=== PATIENT | female | born 1960 | race Caucasian/White ===

== ENCOUNTER 2020-09-28 09:09 | Outpatient (REF) | payer OTHER, MEDICARE, SELFPAY | END 2020-09-28 09:10 | disposition home or self-care (01) | LOC: HO.LAB 09:09 | PROVIDERS: PCP Nurse Practitioner; Visit Provider Internal Medicine | DX: Z20.828 Contact with and (suspected) exposure to other viral communicable diseases (principal) | CPT/HCPCS: C9803; U0003 ==

== ENCOUNTER → 2022-10-02 08:48 | Outpatient (BNVA) | payer OTHER, SELFPAY | PROVIDERS: PCP Nurse Practitioner; Visit Provider Anesthesiology | DX: M51.34 Other intervertebral disc degeneration, thoracic region (principal); M51.36 Other intervertebral disc degeneration, lumbar region; M47.816 Spondylosis without myelopathy or radiculopathy, lumbar region; M46.1 Sacroiliitis, not elsewhere classified; M53.3 Sacrococcygeal disorders, not elsewhere classified; G89.29 Other chronic pain | CPT/HCPCS: 99202 ==

== ENCOUNTER 2022-11-04 06:08 | Outpatient (REF) | payer OTHER, MEDICARE, SELFPAY | END 2022-11-04 06:09 | disposition home or self-care (01) | LOC: CF 06:08 | PROVIDERS: Visit Provider Anesthesiology | DX: Z13.89 Encounter for screening for other disorder (principal) ==

== ENCOUNTER 2022-11-13 19:31 | Outpatient (REF) | payer OTHER, MEDICARE, SELFPAY ==
--- NOTE | ~2022-11-13 | MR_ITS ---
EXAMINATION: MR THORACIC SPINE WITHOUT CONTRAST CLINICAL INFORMATION: 62-year-old with self-reported pain and burning traveling to the left leg with left leg weakness, numbness and pain. Spinal stenosis, thoracic region. COMPARISON: None TECHNIQUE: MRI of the thoracic spine was obtained using routine sequences without contrast. FINDINGS: ALIGNMENT: Very slight upper thoracic levocurvature noted on the fabric cutter view. The thoracic spine is anatomically aligned in the sagittal plane. VERTEBRAL BODIES AND BONE MARROW: Thoracic vertebral body heights are well-maintained. No compression fractures are identified. No suspicious marrow replacing process or bone marrow edema. DISC SPACES AND ENDPLATES: Multilevel discogenic degenerative changes are noted primarily between T4-T5 and L1-L2 inclusive with moderate and mild degrees of intervertebral disc space height loss with multilevel disc desiccation, Schmorl's nodes and spondylosis throughout this region. PARASPINAL SOFT TISSUES: The paravertebral soft tissues are unremarkable. The included, visualized upper abdominal/retroperitoneal soft tissue structures are grossly unremarkable in appearance. The included intrathoracic soft tissues are suggestive of mildly enlarged lymph nodes in the right paratracheal space which cannot be determined with a high degree of certainty. If clinically warranted, CT of the chest with contrast may be of additional value to further assess. SPINAL CORD: Slight cord signal hyperintensity to the left of midline at the T7-T8 level associated with cord impingement suggesting some degree of myelomalacia. Other levels of ventral cord deformity consistent with impingement as detailed below. No obvious cord edema or syrinx. Possible malacia changes at T12-L1. The conus terminates approximately at the L1 level. SPINAL LEVELS: C7-T1: No disc herniation or canal stenosis. Mild facet arthropathy on the right without neural foraminal stenosis. Ligamentum flavum thickening noted. T1-T2: No disc herniation or canal stenosis. No significant DJD or neuroforaminal stenosis. T2-T3: Small left paramedian disc herniation without cord impingement or foraminal encroachment. No significant facet arthrosis or neuroforaminal stenosis. T3-T4: No disc herniation or canal stenosis. Minor facet arthropathy noted bilaterally without significant neural foraminal stenosis. Mild costovertebral arthrosis on the right. T4-T5: Central to right paramedian extruded disc herniation with mild cephalad migration and flattening of the ventral dural sac with mild right-sided ventral cord deformity without canal stenosis. Minor facet arthrosis on the left. No significant neural foraminal stenosis. Mild bilateral costovertebral arthrosis. T5-T6: Central to left paramedian extruded disc herniation with slight cephalad migration without cord impingement or canal stenosis. Busj-vy-zaxrheph facet arthrosis on the left with mild left-sided neural foraminal stenosis without neural impingement. Costovertebral arthrosis noted on the right. T6-T7: Central to left central disc herniation noted with sgej-yh-szxsqlmu left-sided ventral cord impingement and rmhx-le-witvlnqc canal stenosis. No significant facet arthrosis or neuroforaminal stenosis. T7-T8: Central disc herniation noted, with jxvgihqb-cj-jxmraj ventral cord impingement asymmetric to the left with moderate central spinal canal stenosis. No significant facet arthrosis or neuroforaminal stenosis. Probable spondylitic myelomalacia. T8-T9: Central disc protrusion and mild flattening of the central dural sac without cord impingement or significant canal stenosis. No significant facet arthrosis or neuroforaminal stenosis. T9-T10: Right subarticular to foraminal disc protrusion without neural impingement or canal stenosis. No significant DJD. Minimal foraminal narrowing on the right. T10-T11: Central to left paramedian extruded disc herniation noted with the sttf-fj-pdaembiz ventral cord impingement and kkli-qw-qybafrjq spinal canal stenosis. No significant facet arthrosis or neuroforaminal stenosis. T11-T12: Shallow central to right paramedian disc protrusion without neural impingement or canal stenosis. Minor facet arthrosis noted on the left without significant neural foraminal stenosis. T12-L1: Broad-based central to right paramedian extruded disc herniation with cephalad migration with ttbk-ko-wlfflahs ventral cord impingement asymmetric to the left with associated ventral cord deformity and mild canal stenosis. No significant facet arthrosis or neuroforaminal stenosis. MR/MR thoracic spine wo con IMPRESSION: 1. Multilevel thoracic DDD and spondylosis, with multilevel disc herniations throughout the thoracic spine, most apparent at C4-C5, T6-T7, T7-T8 and T10-T11 and T12-L1 with moderate to severe ventral cord impingement asymmetric to the left at T7-T8 and probable spondylitic myelomalacia. Sfav-ki-slezmplc degrees of spinal canal stenosis at multiple levels as detailed above. Probable myelomalacia at T12-L1 associated with the raix-py-qumfkiil ventral cord impingement. 2. Multilevel predominately aesu-kc-orbkvjlk degrees of facet joint and costovertebral arthrosis without significant neural foraminal stenosis. 3. Possible, equivocal mediastinal lymphadenopathy in the right paratracheal space. If clinically warranted, CT of the chest with contrast would be of additional value to further assess. The [facility] staff will call to confirm receipt of this report with acknowledgement of the findings and any recommendations.
== END 2022-11-13 19:32 | disposition home or self-care (01) ==
LOC: HO.MRI 19:31
PROVIDERS: PCP Internal Medicine; Visit Provider Anesthesiology
DX: M48.04 Spinal stenosis, thoracic region (principal); M51.34 Other intervertebral disc degeneration, thoracic region
CPT/HCPCS: 72146

== ENCOUNTER → 2022-12-08 15:26 | Outpatient (BNVA) | payer OTHER, MEDICARE, SELFPAY | PROVIDERS: PCP Internal Medicine; Visit Provider Anesthesiology | DX: Z13.89 Encounter for screening for other disorder (principal) ==

== ENCOUNTER 2023-07-01 11:27 | Outpatient (AMB) | payer OTHER, MEDICARE, SELFPAY ==
--- NOTE | 2023-07-01 11:54 | A.SPINEOV_ITS ---
Intake Intake Visit Reasons: Back pain Intake Note: Mrs. Chu is here today c/o low back pain. MRI done @ [facility] [place]. Casing Blower Required: No Allergies nut - unspecified [nut] Allergy (Severe, Verified 12/08/22 15:38) ANAPHYLAXIS cephradine [From VELOSEF] Allergy (Unknown, Verified 12/08/22 15:38) HIVES egg [EGGS] Adverse Reaction (Unknown, Verified 12/08/22 15:38) NAUSEA & VOMITING prochlorperazine [From COMPAZINE] Adverse Reaction (Unknown, Verified 12/08/22 15:38) CONVULSIONS Assessment & Plan Assessment & Plan (1) Chronic left sacroiliac joint pain: Code(s): M53.3 - Sacrococcygeal disorders, not elsewhere classified; G89.29 - Other chronic pain Plan Dear colleague Thank you for referring Elizabeth Chu to the office today with a chief complaint of left-sided low back pain. HPI: This 62-year-old female is having a 4 year history of left-sided pain in the SI joint area that radiates to her upper lumbar spine and down to her posterior thigh. The pain increases when she gets in and out of car. She has to lay on the non symptomatic side to avoid pain. She was seen by for possible diagnosis of left SI joint pathology. Second complaint is intermittent numbness of her feet and a 3rd complaint is numbness of her right arm when she lays on it. No radiating pain down her arm. No weakness. No bowel or bladder complaints. The following conservative treatment options were tried without success antiinflammatories, tylenol, physical therapy, cortisone shots PMH: COPD, GERD, hypercholesterolemia, thyroid disease Social history: Smokes 1 pack a day Medications: Amitriptyline, baclofen, levothyroxine, pantoprazole, sertraline, simvastatin, Trelegy, albuterol, Tylenol p.m., vitamin-D and gabapentin Allergies: Compazine and Velocef Physical Exam: Pleasant female in obvious agony. She walks with a limp of her left leg. Putting weight on her left leg produces pain. SI joint provocative test are positive. Straight leg raise produces pain in the left SI joint area. Remainder of neurological exam is intact for motor sensation and reflexes. No pathological reflexes Radiological Studies: MRI of the lumbar spine done shows no spinal pathology explaining her symptoms. Impression/Plan: In summary, this patient is suffering from a left SI joint pathology. I advised to return to Dr. Bee for further evaluation and treatment. Thank you for allowing me to participate in your patients care. total time spent was 50 minutes in counseling ,coordination of plan, personal review of imaging, surgical decision making and subsequent plan Horace Babcock MD, PhD Spine Fellowship Trained Neurosurgeon Director, [facility] Coding Level of Care Code New Pt Level 4 (86750) Diagnoses Chronic left sacroiliac joint pain M53.3; G89.29
== END 2023-07-01 12:20 | disposition home or self-care (01) ==
PROVIDERS: PCP Internal Medicine; Referring Provider Physician Assistant Medical; Visit Provider Neurological Surgery
DX: M53.3 Sacrococcygeal disorders, not elsewhere classified (principal); G89.29 Other chronic pain
CPT/HCPCS: 99204

== ENCOUNTER → 2023-07-01 11:27 | Outpatient (BNVA) | payer OTHER, MEDICARE, SELFPAY | PROVIDERS: PCP Internal Medicine; Referring Provider Physician Assistant Medical; Visit Provider Neurological Surgery | DX: M53.3 Sacrococcygeal disorders, not elsewhere classified (principal); G89.29 Other chronic pain | CPT/HCPCS: 99202 ==

== ENCOUNTER 2023-07-29 10:48 | Outpatient (AMB) | payer OTHER, MEDICARE, SELFPAY ==
[2023-07-29 11:25] VITALS: BP 108/74; PULSE 107; RESP 16; O2SAT 94; BMI 35.9
--- NOTE | 2023-07-29 11:25 | A.OFFVIS_ITS ---
Intake Vital Signs 07/29/23 11:25 Height 5 ft Weight 184 lb BMI 35.9 BP 108/74 Blood Pressure Location Lt brachial Position Sitting Respiration 16 Pulse 107 H Pulse Source Pulse Oximeter Pulse Oximetry (%) 94 Oxygen Delivery Method Room Air Intake Visit Reasons: FOLLOW UP FOR BACK PAIN Intake Note: patient comes in for follow up. Allergies nut - unspecified [nut] Allergy (Severe, Verified 07/29/23 11:25) ANAPHYLAXIS cephradine [From VELOSEF] Allergy (Unknown, Verified 07/29/23 11:25) HIVES egg [EGGS] Adverse Reaction (Unknown, Verified 07/29/23 11:25) NAUSEA & VOMITING prochlorperazine [From COMPAZINE] Adverse Reaction (Unknown, Verified 07/29/23 11:25) CONVULSIONS HPI HPI Comments History of Present Illness Details Elizabeth is in my office for the follow-up and further management discussion. I explained to her that since she adamantly refused to go for a surgery the only way to treat her pain I can see as spinal cord stimulator and intrathecal drug delivery system pain pump. I am not sure which spinal cord stimulator in her case will be more efficient so I offered her to have a trial with planned switch during the trial for the other machine. I will place [place] [employer] spinal cord stimulator in and then if she is not satisfied with the Scientific stimulation I will switch it to Nevro. If she likes neither pain p ump can be tried today. She decided to sleep on it and read the brochures about [place] [employer] SCS Nevro SCS and [employer] I DDD. She will give us a call about her decision. At her initial visit I also considered sacroiliac joint injection on the left to help her pain however this procedure never happened. Next time she is here we need to discuss the reason why she did not come to the sacroiliac joint injection procedure. Prior: on the phone today discussing the results of the MRI. The dictation of the MRI is as below. 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 We discussed the situation at hands. Obviously this is not a new findings. She had in the past. However to help her condition with the neuromodulation I need to have neurosurgical consult which would deny any surgery on her thoracic spine. After that we can offer her Nevro spinal cord stimulator versus intrathecal drug delivery system pain pump trial. I do not think the weakness of bilateral lower extremities she experiences every day will get better from those to procedures however obviously the pain will be much better as a palliative care. Prior: complain on pain in lower back with radiation into the left lower extremity.? She reports that this pain started in 2019 after a walk her hip gave out and she was barely able to complete that walk.? the pain is productive with frequent exacerbations.?? She was subject of MRI which demonstrated significant spinal stenosis with spinal cord compression at T10-T11 area.? Apparently she went for neurosurgical consult in [place] and she was not recommended to have any surgery however she was not got established with continuous follow-up with any neurosurgeon neither in [place] nor locally, I believe she needs to be under observation.? she had multiple sessions of physical therapy chiropractic manipulations massage therapy and 10s unit she reports that the those were not helpful.? She reports that she had some sort of injection performed for her lumbar spine which was working for 1 year alleviating her pain.? I suspect that was steroid injection [facility] Medical History (Updated 11/25/22 @ 12:04 by MIR Beck) COPD (chronic obstructive pulmonary disease) Tobacco use disorder Depression Obesity Obstructive sleep apnea Pulmonary nodules Vitamin D deficiency DDD (degenerative disc disease) Thoracic spondylosis Review of Systems Const All systems reviewed & are unremarkable except as noted in HPI and below ENT Reports Normal hearing present Neuro Reports Normal hearing present, Denies Abnormal speech present and Denies Sensory deficit (Neuro) Physical Exam Vital Signs: Last Vital Signs Pulse 107 H 07/29/23 11:25 Resp 16 07/29/23 11:25 BP 108/74 07/29/23 11:25 Pulse Ox 94 07/29/23 11:25 Oxygen Delivery Method Room Air 07/29/23 11:25 BMI result Body Mass Index 35.9 Const General: healthy appearing and acute distress mild Nutritional Appearance: obese other Orientation/consciousness: patient oriented x3 Eyes General: appearance normal, both eyes and all related structures Pupils: Equal, round and reactive pupils present EOM: EOMs intact bilaterally Neck Neck: Yes full ROM Chest Chest palpation & inspection: normal inspection of the chest Resp Effort & Inspection: normal respiratory effort, able to speak in complete sentences, normal respiratory pattern, no audible wheezes and no cough Cardio Jugular venous distension: no JVD GI Inspection: Yes normal to inspection Back/Spine/Pelvis Other: She is able to stand on bilateral tiptoes and on bilateral heels demonstrating normal strength of bilateral lower extremities. Bilateral SLR is negative for pain increase. Bilateral lassegue test is negative for pain increase. Left- sided Mak test is positive for pain increase. Right-sided Mak test is s lightly positive for pain increase as well. Pelvic compression test then the pelvic destruction test result in pain increase in the left. Stinchfield test results in pain in the right sacroiliac joint. Neuro General: patient oriented x3 Cranial nerves: Yes CN's II-XII intact bilaterally, Yes Equal, round and cruz ctive pupils present, Yes Normal hearing present and Yes Ability to bilaterally elevate shoulders present Speech: No Abnormal speech present Gait exam (Neuro): Normal gait present Motor exam (neuro): 5/5 motor strength present throughout Sensory Exam: No Sensory deficit (Neuro) Extrem General: No pedal edema Psych Speech and movement: Normal speech and movement present Affect: normal affect Attitude: cooperative Thought process: Normal thought process present Thought content: Normal thought content present Insight: Good insight present (Psych) Judgement: Good judgement present (Psych) Assessment & Plan Assessment & Plan (1) Degeneration, intervertebral disc, thoracic: Code(s): M51.34 - Other intervertebral disc degeneration, thoracic region (2) Disc degeneration, lumbar: Code(s): M51.36 - Other intervertebral disc degeneration, lumbar region (3) Spondylosis without myelopathy or radiculopathy, lumbar region: Code(s): M47.816 - Spondylosis without myelopathy or radiculopathy, lumbar region (4) Sacroiliitis: Code(s): M46.1 - Sacroiliitis, not elsewhere classified (5) Chronic left sacroiliac joint pain: Code(s): M53.3 - Sacrococcygeal disorders, not elsewhere classified; G89.29 - Other chronic pain (6) Chronic pain syndrome: Code(s): G89.4 - Chronic pain syndrome Plan Left sacrococcygeal disorder/sacroiliitis could be offered to the patient. Alternatively neuromodulation was offered today to the patient. Brochures of [employer] SCS, neuro SCS, [employer] I DDD were given to the patient. Patient will leads read the brochures and will give us a call with her decision about it. She never went for left sacroiliac joint injection as it was planned during her initial visit. I personally believe that we ought to perform it to take all other possibilities of pain generator of of the table before we advanced some cells to neuromodulation. Coding Level of Care Code Est Pt Level 4 (92818) Diagnoses Degeneration, intervertebral disc, thoracic M51.34 Disc degeneration, lumbar M51.36 Spondylosis without myelopathy or radiculopathy, lumbar region M47.816 Sacroiliitis M46.1 Chronic left sacroiliac joint pain M53.3; G89.29 Chronic pain syndrome G89.4
== END 2023-07-29 11:51 | disposition home or self-care (01) ==
PROVIDERS: PCP Internal Medicine; Visit Provider Anesthesiology
DX: M51.34 Other intervertebral disc degeneration, thoracic region (principal); M51.36 Other intervertebral disc degeneration, lumbar region; M47.816 Spondylosis without myelopathy or radiculopathy, lumbar region; M46.1 Sacroiliitis, not elsewhere classified; M53.3 Sacrococcygeal disorders, not elsewhere classified; G89.29 Other chronic pain; G89.4 Chronic pain syndrome
CPT/HCPCS: 99214

== ENCOUNTER → 2023-07-29 10:48 | Outpatient (BNVA) | payer OTHER, MEDICARE, SELFPAY | PROVIDERS: PCP Internal Medicine; Visit Provider Anesthesiology | DX: M51.34 Other intervertebral disc degeneration, thoracic region (principal); M51.36 Other intervertebral disc degeneration, lumbar region; M47.816 Spondylosis without myelopathy or radiculopathy, lumbar region; M46.1 Sacroiliitis, not elsewhere classified; M53.3 Sacrococcygeal disorders, not elsewhere classified; G89.29 Other chronic pain | CPT/HCPCS: 99212 ==

== ENCOUNTER 2024-07-21 15:18 | Outpatient (AMB) | payer OTHER, MEDICARE, SELFPAY ==
--- NOTE | 2024-07-21 15:25 | A.OFFVIS_ITS ---
Vital Signs 3 07/21/24 15:31 Height 5 ft Weight 185 lb 8 oz BMI 36.2 BP 138/74 Blood Pressure Location Lt brachial Position Sitting Respiration 16 Pulse 100 Pulse Source Pulse Oximeter Pulse Oximetry (%) 93 Oxygen Delivery Method Room Air Intake Visit Reasons: Back Pain/Discuss [employer]/Nevro SCS Allergies nut - unspecified [nut] Allergy (Severe, Verified 07/21/24 15:32) ANAPHYLAXIS cephradine [From VELOSEF] Allergy (Unknown, Verified 07/21/24 15:32) HIVES egg [EGGS] Adverse Reaction (Unknown, Verified 07/21/24 15:32) NAUSEA & VOMITING prochlorperazine [From COMPAZINE] Adverse Reaction (Unknown, Verified 07/21/24 15:32) CONVULSIONS HPI Comments Details: Patient presents today for follow up for chronic low back pain with left sided radicular symptoms and discussion of Nevro Lumbar SCS trial. Patient was last seen in our office one year ago by Dr. Bee. Denies any recent trauma, injury or falls. Patient reports low back pain with radiation of pain into left buttock and left lower extremity but not below knee level with associated numbness and tingling. She also has significant left SIJ pain with positive provocative testing and interested to undergo therapeutic injection as initial steps. Patient denies any fever or chills, abdominal groin pain, weakness, foot drop, bladder bowel dysfunction or saddle anesthesia. PRIOR Dr. Bee 07/29/23: Elizabeth is in my office for the follow-up and further management discussion. I explained to her that since she adamantly refused to go for a surgery the only way to treat her pain I can see as spinal cord stimulator and intrathecal drug delivery system pain pump. I am not sure which spinal cord stimulator in her case will be more efficient so I offered her to have a trial with planned switch during the trial for the other machine. I will place [employer] spinal cord stimulator in and then if she is not satisfied with the Scientific stimulation I will switch it to Nevro. If she likes neither pain pump can be tried today. She decided to sleep on it and read the brochures about [employer] SCS Nevro SCS and [employer] I DDD. She will give us a call about her decision. At her initial visit I also considered sacroiliac joint injection on the left to help her pain however this procedure never happened. Next time she is here we need to discuss the reason why she did not come to the sacroiliac joint injection procedure. Prior: on the phone today discussing the results of the MRI. The dictation of the MRI is as below. 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 We discussed the situation at hands. Obviously this is not a new findings. She had in the past. However to help her condition with the neuromodulation I need to have neurosurgical consult which would deny any surgery on her thoracic spine. After that we can offer her Nevro spinal cord stimulator versus intrathecal drug delivery system pain pump trial. I do not think the weakness of bilateral lower extremities she experiences every day will get better from those to procedures however obviously the pain will be much better as a palliative care. Prior: complain on pain in lower back with radiation into the left lower extremity.? She reports that this pain started in 2019 after a walk her hip gave out and she was barely able to complete that walk.? the pain is productive with frequent exacerbations.?? She was subject of MRI which demonstrated significant spinal stenosis with spinal cord compression at T10-T11 area.? Apparently she went for neurosurgical consult in [place] and she was not recommended to have any surgery however she was not got established with continuous follow-up with any neurosurgeon neither in [place] nor locally, I believe she needs to be under observation.? she had multiple sessions of physical therapy chiropractic manipulations massage therapy and 10s unit she reports that the those were not helpful.? She reports that she had some sort of injection performed for her lumbar spine which was working for 1 year alleviating her pain.? I suspect that was steroid injection COUNT INCLUDES THE [facility] Medical History (Updated 11/25/22 @ 12:04 by MIR Beck) COPD (chronic obstructive pulmonary disease) Tobacco use disorder Depression Obesity Obstructive sleep apnea Pulmonary nodules Vitamin D deficiency DDD (degenerative disc disease) Thoracic spondylosis Review of Systems Const All systems reviewed & are unremarkable except as noted in HPI and below Physical Exam Vital Signs: Last Vital Signs Pulse 100 07/21/24 15:31 Resp 16 07/21/24 15:31 BP 138/74 07/21/24 15:31 Pulse Ox 93 07/21/24 15:31 Oxygen Delivery Method Room Air 07/21/24 15:31 BMI result Body Mass Index 36.2 General: Appears afebrile. No acute distress. Alert and oriented. Mood and affect appropriate. Follows and participates in conversation appropriately. Respiratory effort is unlabored. No cough. Able to transition from sit to stand unassisted. Ambulates with bilaterally normal heel strike and toe off. General: Yes no CVA tenderness Back/Spine/Pelvis Other: No midline tenderness to palpation in the thoracic or lumbar region. Minimal paraspinal tenderness to palpation in the lumbar spine on the left Lumbar extension and flexion reproduces mild to moderate pain. No groin pain with I/E hip rotations bilaterally. Back: no CVA tenderness Cervical Spine: cervical ROM normal, cervical muscular tenderness and No Cervical spine tenderness Thoracic/Lumbar Spine: thoracic and lumbar spine normal to inspection, Lasegue's sign negative, straight leg raise negative bilaterally, pain with thoraco-lumbar ROM, paraspinal muscle tenderness, thoraco-lumbar ROM limited, No thoracic spinal tenderness and lumbar spinal tenderness (L4-S1) Pelvis: buttock tenderness on the left Sacroiliac joints: on the right nontender and on the left (SI distraction, Mak's, Gaenslen and Stinchfield tests) tender to palpation Results Reviewed Results Reviewed: MR THORACIC SPINE WITHOUT CONTRAST 11/13/22 CLINICAL INFORMATION: 62-year-old with self-reported pain and burning traveling to the left leg with left leg weakness, numbness and pain. Spinal stenosis, thoracic region. FINDINGS: ALIGNMENT: Very slight upper thoracic levocurvature noted on the fast food shift lead view. The thoracic spine is anatomically aligned in the sagittal plane. VERTEBRAL BODIES AND BONE MARROW: Thoracic vertebral body heights are well-maintained. No compression fractures are identified. No suspicious marrow replacing process or bone marrow edema. DISC SPACES AND ENDPLATES: Multilevel discogenic degenerative changes are noted primarily between T4-T5 and L1-L2 inclusive with moderate and mild degrees of intervertebral disc space height loss with multilevel disc desiccation, Schmorl's nodes and spondylosis throughout this region. PARASPINAL SOFT TISSUES: The paravertebral soft tissues are unremarkable. The included, visualized upper abdominal/retroperitoneal soft tissue structures are grossly unremarkable in appearance. The included intrathoracic soft tissues are suggestive of mildly enlarged lymph nodes in the right paratracheal space which cannot be determined with a high degree of certainty. If clinically warranted, CT of the chest with contrast may be of additional value to further assess. SPINAL CORD: Slight cord signal hyperintensity to the left of midline at the T7-T8 level associated with cord impingement suggesting some degree of myelomalacia. Other levels of ventral cord deformity consistent with impingement as detailed below. No obvious cord edema or syrinx. Possible malacia changes at T12-L1. The conus terminates approximately at the L1 level. SPINAL LEVELS: C7-T1: No disc herniation or canal stenosis. Mild facet arthropathy on the right without neural foraminal stenosis. Ligamentum flavum thickening noted. T1-T2: No disc herniation or canal stenosis. No significant DJD or neuroforaminal stenosis. T2-T3: Small left paramedian disc herniation without cord impingement or foraminal encroachment. No significant facet arthrosis or neuroforaminal stenosis. T3-T4: No disc herniation or canal stenosis. Minor facet arthropathy noted bilaterally without significant neural foraminal stenosis. Mild costovertebral arthrosis on the right. T4-T5: Central to right paramedian extruded disc herniation with mild cephalad migration and flattening of the ventral dural sac with mild right-sided ventral cord deformity without canal stenosis. Minor facet arthrosis on the left. No significant neural foraminal stenosis. Mild bilateral costovertebral arthrosis. T5-T6: Central to left paramedian extruded disc herniation with slight cephalad migration without cord impingement or canal stenosis. Zjwf-de-nsxetxwn facet arthrosis on the left with mild left-sided neural foraminal stenosis without neural impingement. Costovertebral arthrosis noted on the right. T6-T7: Central to left central disc herniation noted with rppv-hu-cnsxhwhr left-sided ventral cord impingement and wywq-xz-qutpxnaz canal stenosis. No significant facet arthrosis or neuroforaminal stenosis. T7-T8: Central disc herniation noted, with fjnkzqef-xc-hrgarr ventral cord impingement asymmetric to the left with moderate central spinal canal stenosis. No significant facet arthrosis or neuroforaminal stenosis. Probable spondylitic myelomalacia. T8-T9: Central disc protrusion and mild flattening of the central dural sac without cord impingement or significant canal stenosis. No significant facet arthrosis or neuroforaminal stenosis. T9-T10: Right subarticular to foraminal disc protrusion without neural impingement or canal stenosis. No significant DJD. Minimal foraminal narrowing on the right. T10-T11: Central to left paramedian extruded disc herniation noted with the gwat-vm-dvqsdqss ventral cord impingement and zose-ed-bkzsiydc spinal canal stenosis. No significant facet arthrosis or neuroforaminal stenosis. T11-T12: Shallow central to right paramedian disc protrusion without neural impingement or canal stenosis. Minor facet arthrosis noted on the left without significant neural foraminal stenosis. T12-L1: Broad-based central to right paramedian extruded disc herniation with cephalad migration with odrj-kq-auxxsyfh ventral cord impingement asymmetric to the left with associated ventral cord deformity and mild canal stenosis. No significant facet arthrosis or neuroforaminal stenosis. IMPRESSION: 1.? Multilevel thoracic DDD and spondylosis, with multilevel disc herniations throughout the thoracic spine, most apparent at C4-C5, T6-T7, T7-T8 and T10-T11 and T12-L1 with moderate to severe ventral cord impingement asymmetric to the left at T7-T8 and probable spondylitic myelomalacia. Mcze-ab-lscalete degrees of spinal canal stenosis at multiple levels as detailed above. Probable myelomalacia at T12-L1 associated with the hkbd-nk-ylgnsbvc ventral cord impingement. ? 2.? Multilevel predominately jpha-jm-ldvpbxzt degrees of facet joint and costovertebral arthrosis without significant neural foraminal stenosis. ? 3.? Possible, equivocal mediastinal lymphadenopathy in the right paratracheal space. If clinically warranted, CT of the chest with contrast would be of additional value to further assess. ? The PSA staff will call to confirm receipt of this report with acknowledgement of the findings and any recommendations. Assessment & Plan Assessment & Plan (1) Degeneration, intervertebral disc, thoracic: Code(s): M51.34 - Other intervertebral disc degeneration, thoracic region Category: Medical (2) Disc degeneration, lumbar: Code(s): M51.36 - Other intervertebral disc degeneration, lumbar region Category: Medical (3) Spondylosis without myelopathy or radiculopathy, lumbar region: Code(s): M47.816 - Spondylosis without myelopathy or radiculopathy, lumbar region Category: Medical (4) Sacroiliitis: Code(s): M46.1 - Sacroiliitis, not elsewhere classified Category: Medical (5) Chronic left sacroiliac joint pain: Code(s): M53.3 - Sacrococcygeal disorders, not elsewhere classified; G89.29 - Other chronic pain Category: Medical (6) Chronic pain syndrome: Code(s): G89.4 - Chronic pain syndrome Category: Medical Plan Schedule left therapeutic SI joint injection with local and fluoroscopy. We also discussed diagnostic injection for potential temporary vs permanent PNS trial, and RFA procedures. Expectations, risks and benefits were reviewed. Patient is aware she will be contacted to schedule this procedure. We reviewed neuromodulation with patient today including Nevro lumbar spinal cord stimulation trial versus implant and [employer] ITDD pain pump trial vs implant. If patient obtains partial pain relief with SI joint injection we will proceed with behavioral evaluation for neuro modulation treatments. All questions and concerns have been answered and patient agreed with the treatment plan. Follow-up after injections and sooner as needed. Coding Level of Care Code Est Pt Level 4 (29243) Complex EM visit Add On G2211 Diagnoses Degeneration, intervertebral disc, thoracic M51.34 Disc degeneration, lumbar M51.36 Spondylosis without myelopathy or radiculopathy, lumbar region M47.816 Sacroiliitis M46.1 Chronic left sacroiliac joint pain M53.3; G89.29 Chronic pain syndrome G89.4
[2024-07-21 15:31] VITALS: BP 138/74; PULSE 100; RESP 16; O2SAT 93; BMI 36.2
== END 2024-07-21 15:56 | disposition home or self-care (01) ==
PROVIDERS: PCP Internal Medicine; Visit Provider Nurse Practitioner Family
DX: M51.34 Other intervertebral disc degeneration, thoracic region (principal); M51.36 Other intervertebral disc degeneration, lumbar region; M47.816 Spondylosis without myelopathy or radiculopathy, lumbar region; M46.1 Sacroiliitis, not elsewhere classified; M53.3 Sacrococcygeal disorders, not elsewhere classified; G89.29 Other chronic pain; G89.4 Chronic pain syndrome
CPT/HCPCS: 99214

== ENCOUNTER → 2024-07-21 15:18 | Outpatient (BNVA) | payer OTHER, MEDICARE, SELFPAY | PROVIDERS: PCP Internal Medicine; Visit Provider Nurse Practitioner Family | DX: M51.34 Other intervertebral disc degeneration, thoracic region (principal); M51.36 Other intervertebral disc degeneration, lumbar region; M47.816 Spondylosis without myelopathy or radiculopathy, lumbar region; M46.1 Sacroiliitis, not elsewhere classified; M53.3 Sacrococcygeal disorders, not elsewhere classified; G89.4 Chronic pain syndrome | CPT/HCPCS: 99212 ==

== ENCOUNTER 2025-04-07 10:20 | Outpatient (AMB) | payer OTHER, SELFPAY ==
--- OUTSIDE RECORDS SUMMARY | 2025-04-07 10:31 | XMS_ITS | Encounter Summary ---
Author Organization [facility] Address [address] [place] [address] Care Team Providers Care County Adviser Name Role Phone Keyona Mills MD Primary Care Provider [phone] Reason for Visit * Reason Onset Date Comments COPD 10/25/2024 Encounter Details Date Type Department Care Team (Late st Contact Info) Description 10/25/2024 Nurse Triage Adult Medicine [address] [address] Keyona Mills MD [address] [place] [address] COPD Social History Tobacco Use Types Packs/Day Years Used Date Smoking Tobacco: Every Day Cigarettes Smokeless Tobacco: Never Alcohol Use Standard Drinks/Week Comments Yes 0 (1 standard drink = 0.6 oz pur e alcohol) Comments Unknown Sex and Gender Information Value Date Recorded Sex Assigned at Not on file Legal Sex Female 12:38 AM EST Gender Identity Not on file Sexual Orientation Not on file Travel History Travel Start Travel End [place] 02/14/2025 03/24/2025 documented as of this encounter Progress Notes * Mell Foley RN - 10/25/2024 9:21 AM EST Reason for Disposition [1] MILD difficulty breathing (e.g., minimal/no SOB at rest, SOB with walking, pulse <100) AND [2] still present when not coughing Answer Assessment - Initial Assessment Questions 1. ONSET: When did the cough begin? Over a month , was seen last month , no improvement 2. SEVERITY: How bad is the cough today? Persistent 3. SPUTUM: Describe the color of your sputum (e.g., none, dry cough; clear, white, yellow, green) Unable to raise sputum 4. HEMOPTYSIS: Are you coughing up any blood? If Yes, ask: How much? (e.g., flecks, streaks, tablespoons, etc.) none 5. DIFFICULTY BREATHING: Are you having difficulty breathing? If Yes, ask: How bad is it? (e.g., mild, moderate, severe) - MILD: No SOB at rest, mild SOB with walking, speaks normally in sentences, can lie down, no retractions, pulse < 100. - MODERATE: SOB at rest, SOB with minimal exertion and prefers to sit, cannot lie down flat, speaksin phrases, mild retractions, audible wheezing, pulse 100-120. - SEVERE: Very SOB at rest, speaks in single words, struggling to breathe, sitting hunched forward,retractions, pulse > 120. Moderate 6. FEVER: Do you have a fever? If Yes, ask: What is your temperature, how was it measured, and when did it start? No 7. CARDIAC HISTORY: Do you have any history of heart disease? (e.g., heart attack, congestive heart failure) No 8. LUNG HISTORY: Do you have any history of lung disease? (e.g., pulmonary embolus, asthma, emphysema) copd 9. PE RISK FACTORS: Do you have a history of blood clots? (or: recent major surgery, recent prolonged travel, bedridden) no 10. OTHER SYMPTOMS: Do you have any other symptoms? (e.g., runny nose, wheezing, chest pain) C/O chest wall tightness with deep breath and cough, feels SOB with minimal activity able to speak in full sentences and has no audible wheezing, using all prescribed and OTC meds as directed with limited relief, cough is non productive for Sputum, denies fever (has not taken temp) able to take PO with no difficulty, denies N/V/D, 11. : Is there any chance you are ? When was your last menstrual period? No 12. TRAVEL: Have you traveled out of the country in the last month? (e.g., travel history, exposures) No Protocols used: Cough - Acute [id number]-M-VR * Bill Marshall - 10/25/2024 9:04 AM EST Patient call requires triage: Symptoms patient is presenting: Persistent cough, COPD, asking to come in for today How long has patient had these symptoms?: few days For ALL patients calling to schedule any appointment (routine, sick visit, follow up, consult, etc.) in the outpatient setting please ask the following questions: Do you have fever of higher than 101, sore throat with difficulty swallowing or severe shortness ofbreath? no If YES to any of these above symptoms, send a message to triage and do not book. Red dot. If no, an audio or video visit should be booked. Have you had close contact with someone with Coronavirus in the last 14 days? no Have you traveled abroad? no Have you traveled recently to another state outside of [place], [place], [place], [place], [place], [place], [place]? no o If yes, did you quarantine for 14 days or have a negative covid test? no If yes to any of the above, patient is not to be scheduled in office until after 14 day quarantine or negative covid test. If pain or injury related was it due to an accident at work or from a motor vehicle accident? If yes, date of accident/Injury: No If yes, gather 3rd constitution party insurance information Third Green Party Information: not applicable PCP: Keyona Mills MD Payor: [employer] / Plan: [employer] / Product Type: *No Product type* / documented in this encounter Plan of Treatment Upcoming Encounters Date Type Department Care Team (Late st Contact Info) Description 05/02/2025 11:00 AM EDT Ancillary Procedure Pulmonolgy - [place] [address] [facility] [address] [facility] [address] [place] [address] 05/02/2025 11:45 AM EDT Office Visit Pulmonolgy - [place] [address] [place] [phone] Payal Yoon MD [address] [facility] [address] [place] [address] documented as of this encounter Visit Diagnoses Not on filedocumented in this encounter Care Teams County Adviser Relationship Specialty Start Date End Date Keyona Mills MD [address] [place] [address] PCP - General Internal Medicine 08/10/20 documented as of this encounter
[2025-04-07 10:32] VITALS: BP 126/60; PULSE 104; O2SAT 96; BMI 36.7
--- NOTE | 2025-04-07 10:32 | MHC.OFFVIS ---
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 Required: No Allergies nut - unspecified [nut] Allergy (Severe, Verified 04/07/25 10:33) ANAPHYLAXIS cephradine [From VELOSEF] Allergy (Unknown, Verified 04/07/25 10:33) HIVES egg [EGGS] Adverse Reaction (Unknown, Verified 04/07/25 10:33) NAUSEA & VOMITING prochlorperazine [From COMPAZINE] Adverse Reaction (Unknown, Verified 04/07/25 10:33) CONVULSIONS Medication List - Last Reconciled 04/07/25 by MIR Beck amitriptyline 75 mg PO BEDTIME baclofen 10 mg PO TID gabapentin 300 mg PO TID ibuprofen 800 mg PO Q8H PRN levothyroxine mcg PO pantoprazole 40 mg PO DAILY sertraline 100 mg PO BID simvastatin 40 mg PO BEDTIME umeclidinium-vilanterol 62.5-25 mcg/actuation (Anoro Ellipta) 1 ea inhalation DAILY HPI Comments Details: The patient is a 64-year-old female presenting with right and left sacroiliac joint pain. She began experiencing a right-sided pain three months ago without any triggering event, shifting from her chronic left sacroiliac joint pain. Described as more acute on the right side, the pain has limited her sitting capacity and interfered with her sleep. The patient has an extensive history of back issues, including arthritis and spinal stenosis identifiable in past MRIs and experiencing persistent thoracic and lumbar discomfort. Notably, the patient's medical record includes vertiginous symptoms linked to the left ear, creating intense dizziness, especially while laying down. She avoids sitting on her right side due to discomfort. Reports potentially smoking-associated risk factor, consuming a daily pack of cigarettes. The patient supports her pain management with ice and Ibuprofen, along with prescribed gabapentin and baclofen for her back condition. - Onset & Timing: Chronic, flared up 3 months ago, with a shift from left to right sacroiliac joint pain after long driving from vacation. - Quality & Character: Pain in the right hip and buttocks, more severe on the right side but also on the left. - Primary Location: Right >Left SI joint area with positive provocative testing. - Radiation: Bilateral buttocks and lateral hips, occasionally to right groin. - Exacerbating Factors: Sitting or sleeping on the right side worsens the pain. Changing positions, prolonged sitting, driving. - Relieving Factors: Ice application provides some relief. - Interference: Impacts sleep and daily functioning. - Affect: Pain impacts patient's sleep and function, has vertigo affecting stability. - Analgesia: Uses ice, Ibuprofen 800 mg, gabapentin, and baclofen (10 mg TID). - Adverse Effects: No specific adverse effects reported. - Activities of Daily Living: Pain affects sleep and daily activities; avoids right-side sitting. - Aberrant Drug Related Behaviors: None reported. PRIOR 07/21/24: Patient presents today for follow up for chronic low back pain with left sided radicular symptoms and discussion of Nevro Lumbar SCS trial. Patient was last seen in our office one year ago by Dr. Bee. Denies any recent trauma, injury or falls. Patient reports low back pain with radiation of pain into left buttock and left lower extremity but not below knee level with associated numbness and tingling. She also has significant left SIJ pain with positive provocative testing and interested to undergo therapeutic injection as initial steps. Patient denies any fever or chills, abdominal groin pain, weakness, foot drop, bladder bowel dysfunction or saddle anesthesia. PRIOR Dr. Bee 07/29/23: Elizabeth is in my office for the follow-up and further management discussion. I explained to her that since she adamantly refused to go for a surgery the only way to treat her pain I can see as spinal cord stimulator and intrathecal drug delivery system pain pump. I am not sure which spinal cord stimulator in her case will be more efficient so I offered her to have a trial with planned switch during the trial for the other machine. I will place [employer] [place] spinal cord stimulator in and then if she is not satisfied with the Scientific stimulation I will switch it to Nevro. If she likes neither pain pump can be tried today. She decided to sleep on it and read the brochures about [employer] [place] SCS Nevro SCS and [employer] I DDD. She will give us a call about her decision. At her initial visit I also considered sacroiliac joint injection on the left to help her pain however this procedure never happened. Next time she is here we need to discuss the reason why she did not come to the sacroiliac joint injection procedure. Prior: on the phone today discussing the results of the MRI. The dictation of the MRI is as below. 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 We discussed the situation at hands. Obviously this is not a new findings. She had in the past. However to help her condition with the neuromodulation I need to have neurosurgical consult which would deny any surgery on her thoracic spine. After that we can offer her Nevro spinal cord stimulator versus intrathecal drug delivery system pain pump trial. I do not think the weakness of bilateral lower extremities she experiences every day will get better from those to procedures however obviously the pain will be much better as a palliative care. Prior: complain on pain in lower back with radiation into the left lower extremity.? She reports that this pain started in 2019 after a walk her hip gave out and she was barely able to complete that walk.? the pain is productive with frequent exacerbations.?? She was subject of MRI which demonstrated significant spinal stenosis with spinal cord compression at T10-T11 area.? Apparently she went for neurosurgical consult in [place] and she was not recommended to have any surgery however she was not got established with continuous follow-up with any neurosurgeon neither in [place] nor locally, I believe she needs to be under observation.? she had multiple sessions of physical therapy chiropractic manipulations massage therapy and 10s unit she reports that the those were not helpful.? She reports that she had some sort of injection performed for her lumbar spine which was working for 1 year alleviating her pain.? I suspect that was steroid injection [facility] Medical History COPD (chronic obstructive pulmonary disease) Tobacco use disorder Depression Obesity Obstructive sleep apnea Pulmonary nodules Vitamin D deficiency DDD (degenerative disc disease) Thoracic spondylosis Review of Systems Const Details: - Musculoskeletal: Reports right and left sacroiliac joint pain, discomfort on right hip. - Neurological: Reports dizziness and vertigo symptoms related to positional changes, denies any specific ear differentiation. - Cardiovascular: Denies any hypertension diagnosis, blood pressure stable at 126/60. - Endocrine: Denies diabetes. - Respiratory: Denies sleep apnea use of CPAP, but endorses smoking a pack of cigarettes daily. - Gastrointestinal: Denies nausea or vomiting associated with vertigo. - General: Denies other systemic symptoms, occasional alcohol use. All systems reviewed & are unremarkable except as noted in HPI and below Physical Exam Vital Signs: Last Vital Signs Pulse 104 H 04/07/25 10:32 BP 126/60 04/07/25 10:32 Pulse Ox 96 04/07/25 10:32 Oxygen Delivery Method Room Air 04/07/25 10:32 BMI result Body Mass Index 36.7 General: Appears afebrile. Moderate distress due to pain. Alert and oriented. Mood and affect appropriate. Follows and participates in conversation appropriately. Respiratory effort is unlabored. No cough. Able to transition from sit to stand unassisted. Ambulates with bilaterally normal heel strike and toe off. General: Yes no CVA tenderness Back/Spine/Pelvis Other: Limited lumbar ROM due to pain. Antalgic gait with limping. Uses cane with ambulation. No midline tenderness to palpation in the thoracic or lumbar region. Moderate paraspinal tenderness to palpation in the lumbar spine right>left. Lumbar extension and flexion reproduces moderate pain. Mild right groin pain with I/E hip rotations bilaterally. Mak's, Stinchfield, Pelvic compression, Gaenslen tests reproduce severe right and moderate left low back pain and minimal to moderate lateral hip. Back: no CVA tenderness Cervical Spine: cervical ROM normal, cervical muscular tenderness and No Cervical spine tenderness Thoracic/Lumbar Spine: thoracic and lumbar spine normal to inspection, Lasegue's sign negative, straight leg raise negative bilaterally, pain with thoraco-lumbar ROM, paraspinal muscle tenderness, thoraco-lumbar ROM limited, No thoracic spinal tenderness and lumbar spinal tenderness (L4-S1) Pelvis: buttock tenderness on the left Sacroiliac joints: on the right nontender and on the left (SI distraction, Mak's, Gaenslen and Stinchfield tests) tender to palpation Extrem General: Yes capillary refill normal, Yes no clubbing, cyanosis or edema and Yes no calf tenderness Results Reviewed Results Reviewed: MR THORACIC SPINE WITHOUT CONTRAST 11/13/22 CLINICAL INFORMATION: 62-year-old with self-reported pain and burning traveling to the left leg with left leg weakness, numbness and pain. Spinal stenosis, thoracic region. FINDINGS: ALIGNMENT: Very slight upper thoracic levocurvature noted on the bleacher pulp view. The thoracic spine is anatomically aligned in the sagittal plane. VERTEBRAL BODIES AND BONE MARROW: Thoracic vertebral body heights are well-maintained. No compression fractures are identified. No suspicious marrow replacing process or bone marrow edema. DISC SPACES AND ENDPLATES: Multilevel discogenic degenerative changes are noted primarily between T4-T5 and L1-L2 inclusive with moderate and mild degrees of intervertebral disc space height loss with multilevel disc desiccation, Schmorl's nodes and spondylosis throughout this region. PARASPINAL SOFT TISSUES: The paravertebral soft tissues are unremarkable. The included, visualized upper abdominal/retroperitoneal soft tissue structures are grossly unremarkable in appearance. The included intrathoracic soft tissues are suggestive of mildly enlarged lymph nodes in the right paratracheal space which cannot be determined with a high degree of certainty. If clinically warranted, CT of the chest with contrast may be of additional value to further assess. SPINAL CORD: Slight cord signal hyperintensity to the left of midline at the T7-T8 level associated with cord impingement suggesting some degree of myelomalacia. Other levels of ventral cord deformity consistent with impingement as detailed below. No obvious cord edema or syrinx. Possible malacia changes at T12-L1. The conus terminates approximately at the L1 level. SPINAL LEVELS: C7-T1: No disc herniation or canal stenosis. Mild facet arthropathy on the right without neural foraminal stenosis. Ligamentum flavum thickening noted. T1-T2: No disc herniation or canal stenosis. No significant DJD or neuroforaminal stenosis. T2-T3: Small left paramedian disc herniation without cord impingement or foraminal encroachment. No significant facet arthrosis or neuroforaminal stenosis. T3-T4: No disc herniation or canal stenosis. Minor facet arthropathy noted bilaterally without significant neural foraminal stenosis. Mild costovertebral arthrosis on the right. T4-T5: Central to right paramedian extruded disc herniation with mild cephalad migration and flattening of the ventral dural sac with mild right-sided ventral cord deformity without canal stenosis. Minor facet arthrosis on the left. No significant neural foraminal stenosis. Mild bilateral costovertebral arthrosis. T5-T6: Central to left paramedian extruded disc herniation with slight cephalad migration without cord impingement or canal stenosis. Haik-ar-hmyebliw facet arthrosis on the left with mild left-sided neural foraminal stenosis without neural impingement. Costovertebral arthrosis noted on the right. T6-T7: Central to left central disc herniation noted with nyfs-cv-rrpcoeds left-sided ventral cord impingement and anec-uz-fqwodmld canal stenosis. No significant facet arthrosis or neuroforaminal stenosis. T7-T8: Central disc herniation noted, with yxhrmxuj-ic-gyjuip ventral cord impingement asymmetric to the left with moderate central spinal canal stenosis. No significant facet arthrosis or neuroforaminal stenosis. Probable spondylitic myelomalacia. T8-T9: Central disc protrusion and mild flattening of the central dural sac without cord impingement or significant canal stenosis. No significant facet arthrosis or neuroforaminal stenosis. T9-T10: Right subarticular to foraminal disc protrusion without neural impingement or canal stenosis. No significant DJD. Minimal foraminal narrowing on the right. T10-T11: Central to left paramedian extruded disc herniation noted with the rvxm-dk-tqltuwja ventral cord impingement and qtzm-yc-daaytqup spinal canal stenosis. No significant facet arthrosis or neuroforaminal stenosis. T11-T12: Shallow central to right paramedian disc protrusion without neural impingement or canal stenosis. Minor facet arthrosis noted on the left without significant neural foraminal stenosis. T12-L1: Broad-based central to right paramedian extruded disc herniation with cephalad migration with edyb-bb-bfavidan ventral cord impingement asymmetric to the left with associated ventral cord deformity and mild canal stenosis. No significant facet arthrosis or neuroforaminal stenosis. IMPRESSION: 1.? Multilevel thoracic DDD and spondylosis, with multilevel disc herniations throughout the thoracic spine, most apparent at C4-C5, T6-T7, T7-T8 and T10-T11 and T12-L1 with moderate to severe ventral cord impingement asymmetric to the left at T7-T8 and probable spondylitic myelomalacia. Uhoe-eg-zffeccpu degrees of spinal canal stenosis at multiple levels as detailed above. Probable myelomalacia at T12-L1 associated with the tyqv-pt-kiqoqmpj ventral cord impingement. ? 2.? Multilevel predominately ymfw-vj-myfrdizg degrees of facet joint and costovertebral arthrosis without significant neural foraminal stenosis. ? 3.? Possible, equivocal mediastinal lymphadenopathy in the right paratracheal space. If clinically warranted, CT of the chest with contrast would be of additional value to further assess. ? The [facility] staff will call to confirm receipt of this report with acknowledgement of the findings and any recommendations. Assessment & Plan Assessment & Plan (1) Disc degeneration, lumbar: Code(s): M51.36 - Other intervertebral disc degeneration, lumbar region Category: Medical (2) Spondylosis without myelopathy or radiculopathy, lumbar region: Code(s): M47.816 - Spondylosis without myelopathy or radiculopathy, lumbar region Category: Medical (3) Sacroiliitis: Code(s): M46.1 - Sacroiliitis, not elsewhere classified Category: Medical (4) Chronic pain syndrome: Code(s): G89.4 - Chronic pain syndrome Category: Medical (5) Chronic sacroiliac joint pain: Code(s): M53.3 - Sacrococcygeal disorders, not elsewhere classified; G89.29 - Other chronic pain Category: Medical (6) Vertigo: Code(s): R42 - Dizziness and giddiness Category: Medical (7) Benign paroxysmal positional vertigo, bilateral: Code(s): H81.13 - Benign paroxysmal vertigo, bilateral Category: Medical Plan The patient will undergo lumbar and hip joint x-rays with a pelvic view to assess joints and degree of arthritis. Therapeutic sacroiliac joint injections on both sides are planned initially. Given the symptoms of vertigo, enrollment in vestibular physical therapy will be pursued, emphasizing benign paroxysmal positional vertigo management strategies. Short script of oxycodone is prescribed conditionally for severe pain mitigation, alongside Narcan, reviewed side effects and precautions with both medications and its administration. These steps aim at addressing the primary pain diagnoses effectively, while smoking cessation is briefly suggested for overall health improvement and care home risk factor reduction. Schedule Bilateral therapeutic SI joint injection with local and fluoroscopy. We also discussed diagnostic injection for potential temporary vs permanent PNS trial, and RFA procedures. Expectations, risks and benefits were reviewed. Patient is aware she will be contacted to schedule this procedure. Previously reviewed neuromodulation with patient today including Nevro lumbar spinal cord stimulation trial versus implant and Smartzer ITDD pain pump trial vs implant. If patient obtains partial pain relief with SI joint injection we will proceed with behavioral evaluation for neuromodulation treatments. All questions and concerns have been answered and patient agreed with the treatment plan. Follow-up after injections and sooner as needed. Patient was informed and verbally consented to the use of an ambient scribe for clinic note documentation during this visit. Orders: Orders XR hip BI w PEL1V Today G89.29 - Other chronic pain, G89.4 - Chronic pain syndrome, M46.1 - Sacroiliitis, not elsewhere classified, M53.3 - Sacrococcygeal disorders, not elsewhere classified XR lumbar spine 4V min Today M47.816 - Spondylosis without myelopathy or radiculopathy, lumbar region, M51.36 - Other intervertebral disc degeneration, lumbar region PT Evaluation and Treatment Today H81.13 - Benign paroxysmal vertigo, bilateral Medications: New oxycodone Partial Fill upon patient request. 5 mg PO Q8H 10 days PRN 30 tabs 0RF pain (scale score 7-10) G89.29 - Other chronic pain, G89.4 - Chronic pain syndrome, M46.1 - Sacroiliitis, not elsewhere classified, M47.816 - Spondylosis without myelopathy or radiculopathy, lumbar region, M51.36 - Other intervertebral disc degeneration, lumbar region, M53.3 - Sacrococcygeal disorders, not elsewhere classified naloxone 4 mg/actuation (Narcan) spray 1 dose into ONE nostril; alternate nostrils w each dose until help arrives 4 mg intranasal Q2M PRN 2 ea 0RF opioid overdose Coding Level of Care Code Est Pt Level 4 (21200) Complex EM visit Add On G2211 Diagnoses Disc degeneration, lumbar M51.36 Spondylosis without myelopathy or radiculopathy, lumbar region M47.816 Sacroiliitis M46.1 Chronic pain syndrome G89.4 Chronic sacroiliac joint pain M53.3; G89.29 Vertigo R42 Benign paroxysmal positional vertigo, bilateral H81.13
== END 2025-04-07 10:53 | disposition home or self-care (01) ==
LOC: HO.PMC 10:21
PROVIDERS: PCP Internal Medicine; Visit Provider Nurse Practitioner Family
DX: M51.369 Other intervertebral disc degeneration, lumbar region without mention of lumbar back pain or lower extremity pain (principal); M47.816 Spondylosis without myelopathy or radiculopathy, lumbar region; M46.1 Sacroiliitis, not elsewhere classified; G89.4 Chronic pain syndrome; M53.3 Sacrococcygeal disorders, not elsewhere classified; G89.29 Other chronic pain; R42 Dizziness and giddiness; H81.13 Benign paroxysmal vertigo, bilateral
CPT/HCPCS: 99214

== ENCOUNTER → 2025-04-07 10:20 | Outpatient (BNVA) | payer OTHER, SELFPAY | PROVIDERS: PCP Internal Medicine; Visit Provider Nurse Practitioner Family | DX: M51.360 Other intervertebral disc degeneration, lumbar region with discogenic back pain only (principal); M47.816 Spondylosis without myelopathy or radiculopathy, lumbar region; M46.1 Sacroiliitis, not elsewhere classified; M53.3 Sacrococcygeal disorders, not elsewhere classified; G89.29 Other chronic pain; H81.13 Benign paroxysmal vertigo, bilateral | CPT/HCPCS: 99212 ==

== ENCOUNTER 2025-06-06 06:10 | Outpatient (REF) | payer OTHER, SELFPAY ==
--- OUTSIDE RECORDS SUMMARY | 2024-09-12 11:00 | XMS_ITS ---
Author Organization [facility] Address [address] [place] [address] Care Team Providers Care Sheet Manager Name Role Phone Lina PLEITEZ, Keyona Reynoso Primary Care Provider Unav ailable Gregoria Doss Unavailable [phone] Encounters Encounter Location Date Provider Diagnosis [facility] [address] [place] [address] 09/12/2024 Gregoria Romario Plan Of Treatment Next Appt Details Provider Name:Gregoria Doss , 10/24/2025 10:00:00 AM, [address] [place], [address], Progress Notes * Elizabeth CHU MDOB: [birth year] (64 yo F)Acc No.[id number]:09/12/2024 Progress Note Patient: Porfirio MEJIA Elizabeth Monroy Provider: Keiry Doss DPM :1960 A ge:64 Y S ex:Female Date:09/12/2024 Address:[address] [id number] Pcp:Keyona Mills MD Subjective: * Chief Complaints: [...] DPM Date: Generated for Dmitry gleason/Elizabeth/Dalton on: 0 06/06/2025 06:11 AM EDT
--- NOTE | ~2025-06-06 | FL_ITS ---
EXAMINATION: FL GUIDANCE ONLY HISTORY: M53.3 - Sacrococcygeal disorders, not elsewhere classified COMPARISON: None available. TECHNIQUE: Fluoroscopy time: 0.2 minutes. Cumulative Dose: 4.07 mGy. DAP: 0.316 mGym2 Images: . FINDINGS: Fluoroscopic spot films of the pelvis demonstrate needles and contrast material in the regions of the bilateral sacroiliac joints. FL/FL guidance in treatment room IMPRESSION: Fluoroscopy during procedure. Please see procedure report for additional information. Electronically signed by: Bhanu Mulligan MD 06/06/2025 11:46 AM EDT
--- OUTSIDE RECORDS SUMMARY | 2025-06-06 06:11 | XMS_ITS | Encounter Summary ---
Author Organization [facility] Address [address] [place] [address] Care Team Providers Care Clay Pigeon Loader Name Role Phone Keyona Mills MD Primary Care Provider [phone] Reason for Visit * Reason Onset Date Comments COPD 10/25/2024 Encounter Details Date Type Department Care Team (Late st Contact Info) Description 10/25/2024 Nurse Triage Adult Medicine [facility] [address] [place] [phone] Keyona Mills MD [address] [place] [address] COPD Social History Tobacco Use Types Packs/Day [...] on file Sexual Orientation Not on file documented as of this encounter Progress Notes [...] exposures) No Protocols used: Cough - Acute Vvtdybeddv-L-WC * Bill Marshall - 10/25/2024 9:04 AM [...] traveled recently to another state outside of [place], [place], [place], [place], [place], [place], [place]? no o If yes, did you quarantine [...] of accident/Injury: No If yes, gather 3rd democrat insurance information Third Democrat Information: not applicable PCP: Keyona Mills MD Payor: [employer] / Plan: [employer] / Product Type: *No Product type* / documented in this encounter Plan of Treatment Upcoming Encounters Date Type Department Care Team (Late st Contact Info) Description 08/09/2025 10:00 AM EDT Office Visit Adult Medicine [address] [phone] Deangelo Johns NP [address] [place] [address] 09/19/2025 11:00 AM EST Office Visit Bariatric Surgery - [place] [address] [phone] Nika Mcdermott PA [address] [address] 11/01/2025 2:00 PM EST Ancillary Procedure Pulmonolgy - [address] [phone] 11/01/2025 2:45 PM EST Office Visit Pulmonolgy - [address] [phone] Payal Yoon MD [address] [address] documented as of this encounter Visit Diagnoses Not on filedocumented in this encounter Care Teams Clay Pigeon Loader Relationship Specialty Start Date End Date Keyona Mills MD [address] [place] [address] PCP - General Internal Medicine 08/10/20 documented as of this encounter
--- OUTSIDE RECORDS SUMMARY | 2025-06-06 06:12 | XMS_ITS | Clinical Summary ---
Author Organization [facility] Address [address] [place] [address] Care Team Providers Care Director Of Social Work Name Role Phone Unavailable Primary Care Provider Unavailabl e Allergies Active Allergy Reactions Criticality Noted Date Comments Prochlorperazine 06/13/2021 Iodine 06/13/2021 Cephradine 06/13/2021 Medications Medication Sig Dispensed Refills Start Date End Date Status pantoprazole (PROTONIX) 40 MG tablet Take 40 mg by mouth every morning on an empty stomach. 0 Active levothyroxine (SYNTHROID) tablet 125 mcg Take 137 mcg by mouth every morning on an empty stomach. 0 Active sertraline (ZOLOFT) 100 MG tablet Take 100 mg by mouth 2 (two) times a day. 0 Active amitriptyline (ELAVIL) 75 MG tablet Take by mouth every night at bedtime. 0 Active baclofen (LIORESAL) 10 MG tablet Take 10 mg by mouth 3 (three) times a day. 0 Active simvastatin (ZOCOR) tablet 40 mg Take 40 mg by mouth every night at bedtime. 0 Active gabapentin (NEURONTIN) 300 MG capsule Take 300 mg by mouth 3 (three) times a day. 0 Active diazePAM (VALIUM) tablet 5 mg Take 1 tablet (5 mg total) by mouth once as needed for anxiety (for 30 minutes prior to procedure) for up to 1 dose. 1 tablet 0 06/14/2021 Active Social History Tobacco Use Types Packs/Day Years Used Date Smoking Tobacco: Every Day Cigarettes 1 30 Smokeless Tobacco: Never Alcohol Use Standard Drinks/Week Comments Yes 0 (1 standard drink = 0.6 oz pur e alcohol) social Sex and Gender Information Value Date Recorded Sex Assigned at Not on file Gender Identity Not on file Sexual Orientation Not on file Last Filed Vital Signs Vital Sign Reading Time Taken Comments Blood Pressure - - Pulse 103 06/14/2021 2:20 PM EDT Temperature 36.7 C (98 F) 06/14/2021 2:20 PM EDT Respiratory Rate - - Oxygen Saturation 96% 06/14/2021 2:20 PM EDT Inhaled Oxygen Concentration - - Weight 79.4 kg (175 lb) 06/13/2021 8:58 AM EDT Height 154.9 cm (5' 1 ) 06/13/2021 8:58 AM EDT Body Mass Index 33.07 06/13/2021 8:58 AM EDT Plan of Treatment Health Maintenance Due Date Last Done Comments Hepatitis C Screening 1960 Lung Cancer Screening (Low D ose CT) 1960 COVID-19 Vaccine (#1) 02/14/1961 Pneumococcal Vaccine (1 of 2 - PCV) 1966 Pneumococcal Vaccine (1 of 2 - PCV) 1966 Depression Screening 1972 Preventative Health Evaluation 1978 Tobacco Cessation Counseling 1978 DTap / Tdap / Td (1 - Tdap) 1979 Cervical Cancer Screening (P ap Smear) 1981 Colon Cancer Screening (Colonoscopy) 2005 Breast Cancer Screening (Mammogram) 2010 Shingrix-Zoster Vaccine (1 of 2) 2010 Influenza Vaccine (#1) 2025 RSV Adult > 60+ Yrs or Pregn ant (1 - 1-dose 75+ series) 2035 Hepatitis B Vaccines Aged Out No long er eligible based on patient's age to complete this topic RSV Ped < 20 months Aged Out No longe r eligible based on patient's age to complete this topic
--- OUTSIDE RECORDS SUMMARY | 2025-06-06 06:12 | XMS_ITS ---
Author Name [facility] Organization Unknown Encounters Encounter Type Encounter Reason Primary Diagnosis Location Date Ambulatory [facility] 08/26/2024 Care Team Organization Name Specialty Phone Email Start Date End Da te [facility] 2024
== END 2025-06-06 06:11 | disposition home or self-care (01) ==
LOC: CF 06:10
PROVIDERS: Visit Provider Anesthesiology
DX: M51.360 Other intervertebral disc degeneration, lumbar region with discogenic back pain only (principal); M47.816 Spondylosis without myelopathy or radiculopathy, lumbar region; M46.1 Sacroiliitis, not elsewhere classified; G89.4 Chronic pain syndrome; M53.3 Sacrococcygeal disorders, not elsewhere classified; H81.13 Benign paroxysmal vertigo, bilateral
CPT/HCPCS: 27096; J2003; J2795; J3301; Q9967

== ENCOUNTER 2025-06-06 10:58 | Outpatient (AMB) | payer OTHER, SELFPAY ==
--- OUTSIDE RECORDS SUMMARY | 2025-06-06 06:10 | XMS_ITS | Continuity of Care Document ---
Author Name [facility] Organization [facility] Care Team Providers Care Sports Coordinator Name Role Phone [facility] Unavailable Unavailable Social History Combined list of available smoking, tobacco, and other social history from Department of Defense and Veterans Affairs facilities. Social History Type Response Date Comment Sourc e This section is an empty social history section. [facility]
[2025-06-06 11:07] VITALS: BP 147/78; PULSE 92; RESP 18; O2SAT 95
--- NOTE | 2025-06-06 11:07 | A.OFFVIS_ITS ---
Vital Signs 06/06/25 11:07 06/06/25 11:25 Weight 190 lb BP 147/78 H 117/76 Blood Pressure Location Lt brachial Rt brachial Position Sitting Sitting Respiration 18 18 Pulse 92 92 Pulse Source Pulse Oximeter Pulse Oximetry (%) 95 96 Oxygen Delivery Method Room Air Room Air Intake Visit Reasons: BILATERAL THERAPEUTIC SIJ INJECTIONS Natural Resource Specialist Required: No Allergies nut - unspecified (nut) Allergy (Severe, Verified 04/07/25 10:33) ANAPHYLAXIS cephradine (From VELOSEF) Allergy (Unknown, Verified 04/07/25 10:33) HIVES egg (EGGS) Adverse Reaction (Unknown, Verified 04/07/25 10:33) NAUSEA & VOMITING prochlorperazine (From COMPAZINE) Adverse Reaction (Unknown, Verified 04/07/25 10:33) CONVULSIONS PFSH Medical History COPD (chronic obstructive pulmonary disease) Tobacco use disorder Depression Obesity Obstructive sleep apnea Pulmonary nodules Vitamin D deficiency DDD (degenerative disc disease) Thoracic spondylosis Physical Exam Vital Signs: Last Vital Signs Pulse 92 06/06/25 11:25 Resp 18 06/06/25 11:25 BP 117/76 06/06/25 11:25 Pulse Ox 96 06/06/25 11:25 Oxygen Delivery Method Room Air 06/06/25 11:25 Assessment & Plan Assessment & Plan (1) Disc degeneration, lumbar: Code(s): M51.36 - Other intervertebral disc degeneration, lumbar region Category: Medical (2) Spondylosis without myelopathy or radiculopathy, lumbar region: Code(s): M47.816 - Spondylosis without myelopathy or radiculopathy, lumbar region Category: Medical (3) Sacroiliitis: Code(s): M46.1 - Sacroiliitis, not elsewhere classified Category: Medical (4) Chronic pain syndrome: Code(s): G89.4 - Chronic pain syndrome Category: Medical (5) Chronic sacroiliac joint pain: Code(s): M53.3 - Sacrococcygeal disorders, not elsewhere classified; G89.29 - Other chr onic pain Category: Medical (6) Vertigo: Code(s): R42 - Dizziness and giddiness Category: Medical (7) Benign paroxysmal positional vertigo, bilateral: Code(s): H81.13 - Benign paroxysmal vertigo, bilateral Category: Medical Plan Bilateral therapeutic sacroiliac joint injection. Informed consent was thoroughly explained to the patient risks and benefits were explained. The patient came to the operating room and positioned prone on operating table with pillow under the abdomen. Time-out was performed delineating name and date of of the patient, side and site of the procedure. The lower back of the patient was prepped with ChloraPrep and draped with self adhesive sterile utility towels. C-arm was brought over the operating field and picture of the right SI joint was demonstrated on the screen. Tilting C-arm 20 degrees contralateral to the site of the joint to the left the most posterior portion of the joint was superimposed on were anterior portion of the joint. The superpositions point was chosen as the target of the injection. The projection of the target with skin was injected with small amount of mixture of lidocaine 2% and ropivacaine 0.5% one-to-one. After that 22 gauge 3-1/2 inch needle was inserted through the skin wheal and advanced to were the SI joint in tunnel vision fashion. When needle gently entered the capsule of the joint injection of the contrast was performed delineating arthrogram. After that injection of the treatment medicine containing ropivacaine 0.5% 5 mL mixed with Kenalog 40 mg was performed into the joint. Upon completion of the injection needle was removed and procedure was repeated on the left side in mirroring fashion. Total dose of Kenalog was 80 mg After that sterile Band-Aid was applied. The patient tolerated procedure well. Orders: Orders FL guidance in treatment room Today G89.29 - Other chronic pain, M53.3 - Sacrococcygeal disorders, not elsewhere classified Coding Level of Care Code Procedure Only Diagnoses Disc degeneration, lumbar M51.36 Spondylosis without myelopathy or radiculopathy, lumbar region M47.816 Sacroiliitis M46.1 Chronic pain syndrome G89.4 Chronic sacroiliac joint pain M53.3; G89.29 Vertigo R42 Benign paroxysmal positional vertigo, bilateral H81.13
[2025-06-06 11:25] VITALS: BP 117/76; PULSE 92; RESP 18; O2SAT 96
== END 2025-06-06 11:25 | disposition home or self-care (01) ==
LOC: HO.PMCPRC 10:58
PROVIDERS: PCP Internal Medicine; Visit Provider Anesthesiology
DX: M46.1 Sacroiliitis, not elsewhere classified (principal); M53.3 Sacrococcygeal disorders, not elsewhere classified; G89.4 Chronic pain syndrome; G89.29 Other chronic pain; R42 Dizziness and giddiness; H81.13 Benign paroxysmal vertigo, bilateral
CPT/HCPCS: 27096

== ENCOUNTER 2025-07-18 13:33 | Outpatient (AMB) | payer OTHER, SELFPAY ==
[2025-07-18 13:38] VITALS: BP 117/64; PULSE 98; O2SAT 100; BMI 34.4
--- NOTE | 2025-07-18 13:38 | MHC.OFFVIS ---
Vital Signs 07/18/25 13:38 Height 5 ft Weight 176 lb BMI 34.4 BP 117/64 Blood Pressure Location Rt brachial Position Sitting Pulse 98 Pulse Source Pulse Oximeter Pulse Oximetry (%) 100 Oxygen Delivery Method Room Air Intake Visit Reasons: S/P BILATERAL THERAPEUTIC SIJ INJECTIONS 06/06/25 Intake Note: Pain today 05/25 Prepared Foods Team Leader Required: No Accompanied by: Self / Same As Patient Allergies nut - unspecified (nut) Allergy (Severe, Verified 07/18/25 13:39) ANAPHYLAXIS cephradine (From VELOSEF) Allergy (Unknown, Verified 07/18/25 13:39) HIVES egg (EGGS) Adverse Reaction (Unknown, Verified 07/18/25 13:39) NAUSEA & VOMITING prochlorperazine (From COMPAZINE) Adverse Reaction (Unknown, Verified 07/18/25 13:39) CONVULSIONS HPI Comments Details: The patient is a 64-year-old female presenting with chronic pain management concerns. The patient reports a history of spinal issues, including spinal stenosis, lumbar disc degeneration, and lumbar spondylosis, which have been ongoing for several years. She has not undergone any back surgery and denies any specific injury leading to her current condition. The patient received bilateral sacroiliac joint injections with steroids on June 06, which provided complete relief for only two weeks. Previous injections in 2018 at [facility] provided longer-lasting relief. The patient is currently considering alternative pain management options, including a spinal cord stimulator. The patient experiences pain primarily in the lower back and right buttock, with radiation to the right leg. The pain is exacerbated by walking and backward flexion, and she reports weakness more pronounced on the right side. She is currently taking gabapentin, ibuprofen, baclofen, amitriptyline, and Zepbound, with some weight loss noted. Denies any recent cough, cold, infection, fever or any significant changes in medical history since last office visit - Onset: Chronic, with exacerbations over several years - Quality: Sharp and radiating - Location: Lower back, right buttock, and right leg - Exacerbating factors: Walking, backward flexion - Relieving factors: Previous injections provided temporary relief - Interference: Affects walking, daily functioning and activities and sleep - Affect: Pain impacts mood and daily functioning, disrupts sleep and reduces quality of life, causing frustration - Analgesia: Currently using gabapentin, ibuprofen, baclofen, amitriptyline, and Zepbound - Adverse Effects: Nausea noted with Zepbound - Activities of Daily Living: Pain limits walking and causes weakness, particularly on the right side - Aberrant Drug Related Behaviors: No evidence of misuse or overuse of medications Past Procedures: 06/06/25: Bilateral therapeutic sacroiliac joint injections-100% pain relief for 2 weeks PRIOR: The patient is a 64-year-old female presenting with right and left sacroiliac joint pain. She began experiencing a right-sided pain three months ago without any triggering event, shifting from her chronic left sacroiliac joint pain. Described as more acute on the right side, the pain has limited her sitting capacity and interfered with her sleep. The patient has an extensive history of back issues, including arthritis and spinal stenosis identifiable in past MRIs and experiencing persistent thoracic and lumbar discomfort. Notably, the patient's medical record includes vertiginous symptoms linked to the left ear, creating intense dizziness, especially while laying down. She avoids sitting on her right side due to discomfort. Reports potentially smoking-associated risk factor, consuming a daily pack of cigarettes. The patient supports her pain management with ice and Ibuprofen, along with prescribed gabapentin and baclofen for her back condition. - Onset & Timing: Chronic, flared up 3 months ago, with a shift from left to right sacroiliac joint pain after long driving from vacation. - Quality & Character: Pain in the right hip and buttocks, more severe on the right side but also on the left. - Primary Location: Right >Left SI joint area with positive provocative testing. - Radiation: Bilateral buttocks and lateral hips, occasionally to right groin. - Exacerbating Factors: Sitting or sleeping on the right side worsens the pain. Changing positions, prolonged sitting, driving. - Relieving Factors: Ice application provides some relief. - Interference: Impacts sleep and daily functioning. - Affect: Pain impacts patient's sleep and function, has vertigo affecting stability. - Analgesia: Uses ice, Ibuprofen 800 mg, gabapentin, and baclofen (10 mg TID). - Adverse Effects: No specific adverse effects reported. - Activities of Daily Living: Pain affects sleep and daily activities; avoids right-side sitting. - Aberrant Drug Related Behaviors: None reported. PRIOR 07/21/24: Patient presents today for follow up for chronic low back pain with left sided radicular symptoms and discussion of Nevro Lumbar SCS trial. Patient was last seen in our office one year ago by Dr. Bee. Denies any recent trauma, injury or falls. Patient reports low back pain with radiation of pain into left buttock and left lower extremity but not below knee level with associated numbness and tingling. She also has significant left SIJ pain with positive provocative testing and interested to undergo therapeutic injection as initial steps. Patient denies any fever or chills, abdominal groin pain, weakness, foot drop, bladder bowel dysfunction or saddle anesthesia. PRIOR Dr. Bee 07/29/23: Elizabeth is in my office for the follow-up and further management discussion. I explained to her that since she adamantly refused to go for a surgery the only way to treat her pain I can see as spinal cord stimulator and intrathecal drug delivery system pain pump. I am not sure which spinal cord stimulator in her case will be more efficient so I offered her to have a trial with planned switch during the trial for the other machine. I will place [employer] spinal cord stimulator in and then if she is not satisfied with the Scientific stimulation I will switch it to Nevro. If she likes neither pain pump can be tried today. She decided to sleep on it and read the brochures about [employer] SCS Nevro SCS and [employer] I DDD. She will give us a call about her decision. At her initial visit I also considered sacroiliac joint injection on the left to help her pain however this procedure never happened. Next time she is here we need to discuss the reason why she did not come to the sacroiliac joint injection procedure. Prior: on the phone today discussing the results of the MRI. The dictation of the MRI is as below. 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 We discussed the situation at hands. Obviously this is not a new findings. She had in the past. However to help her condition with the neuromodulation I need to have neurosurgical consult which would deny any surgery on her thoracic spine. After that we can offer her Nevro spinal cord stimulator versus intrathecal drug delivery system pain pump trial. I do not think the weakness of bilateral lower extremities she experiences every day will get better from those to procedures however obviously the pain will be much better as a palliative care. Prior: complain on pain in lower back with radiation into the left lower extremity.? She reports that this pain started in 2019 after a walk her hip gave out and she was barely able to complete that walk.? the pain is productive with frequent exacerbations.?? She was subject of MRI which demonstrated significant spinal stenosis with spinal cord compression at T10-T11 area.? Apparently she went for neurosurgical consult in [place] and she was not recommended to have any surgery however she was not got established with continuous follow-up with any neurosurgeon neither in [place] nor locally, I believe she needs to be under observation.? she had multiple sessions of physical therapy chiropractic manipulations massage therapy and 10s unit she reports that the those were not helpful.? She reports that she had some sort of injection performed for her lumbar spine which was working for 1 year alleviating her pain.? I suspect that was steroid injection [facility] Medical History COPD (chronic obstructive pulmonary disease) Tobacco use disorder Depression Obesity Obstructive sleep apnea Pulmonary nodules Vitamin D deficiency DDD (degenerative disc disease) Thoracic spondylosis Review of Systems Const Details: - Musculoskeletal: Reports chronic pain in lower back and right leg, weakness more on the right side - Neurological: Denies bladder or bowel dysfunction or saddle anesthesia. Reports right leg weakness with back pain. - General: Reports weight loss of 12 pounds with Zepbound injections All systems reviewed & are unremarkable except as noted in HPI and below Physical Exam Vital Signs: Last Vital Signs Pulse 98 07/18/25 13:38 BP 117/64 07/18/25 13:38 Pulse Ox 100 07/18/25 13:38 Oxygen Delivery Method Room Air 07/18/25 13:38 BMI result Body Mass Index 34.4 General: Appears afebrile. Moderate distress due to pain. Alert and oriented. Mood and affect appropriate. Follows and participates in conversation appropriately. Respiratory effort is unlabored. No cough. Able to transition from sit to stand unassisted. Ambulates with bilaterally normal heel strike and toe off. General: Yes no CVA tenderness Back/Spine/Pelvis Other: Limited lumbar ROM due to pain. Antalgic gait with limping. Uses cane with ambulation. No midline tenderness to palpation in the thoracic or lumbar region. Mild to moderate paraspinal tenderness to palpation in the lumbar spine right>left. Lumbar extension and flexion reproduces moderate to severe pain. Mild right groin pain with I/E hip rotations bilaterally. Mak's, Stinchfield, Pelvic compression, Gaenslen tests positive bilaterally. Valsalva maneuver is negative. Back: no CVA tenderness Cervical Spine: cervical ROM normal, cervical muscular tenderness, No Cervical spine tenderness and No step off deformity Thoracic/Lumbar Spine: thoracic and lumbar spine normal to inspection, No Thoracic/lumbar spine scar(s), Lasegue's sign positive bilateral and diffuse, pain with thoraco-lumbar ROM, paraspinal muscle tenderness, thoraco-lumbar ROM limited, No thoracic spinal tenderness, lumbar spinal tenderness (L4-S1) and straight leg raise positive right at 40 degrees Pelvis: buttock tenderness on the left Sacroiliac joints: bilaterally tender to palpation Extrem General: Yes capillary refill normal, Yes no clubbing, cyanosis or edema and Yes no calf tenderness Results Reviewed Results Reviewed: MR THORACIC SPINE WITHOUT CONTRAST 11/13/22 CLINICAL INFORMATION: 62-year-old with self-reported pain and burning traveling to the left leg with left leg weakness, numbness and pain. Spinal stenosis, thoracic region. FINDINGS: ALIGNMENT: Very slight upper thoracic levocurvature noted on the power press operator view. The thoracic spine is anatomically aligned in the sagittal plane. VERTEBRAL BODIES AND BONE MARROW: Thoracic vertebral body heights are well-maintained. No compression fractures are identified. No suspicious marrow replacing process or bone marrow edema. DISC SPACES AND ENDPLATES: Multilevel discogenic degenerative changes are noted primarily between T4-T5 and L1-L2 inclusive with moderate and mild degrees of intervertebral disc space height loss with multilevel disc desiccation, Schmorl's nodes and spondylosis throughout this region. PARASPINAL SOFT TISSUES: The paravertebral soft tissues are unremarkable. The included, visualized upper abdominal/retroperitoneal soft tissue structures are grossly unremarkable in appearance. The included intrathoracic soft tissues are suggestive of mildly enlarged lymph nodes in the right paratracheal space which cannot be determined with a high degree of certainty. If clinically warranted, CT of the chest with contrast may be of additional value to further assess. SPINAL CORD: Slight cord signal hyperintensity to the left of midline at the T7-T8 level associated with cord impingement suggesting some degree of myelomalacia. Other levels of ventral cord deformity consistent with impingement as detailed below. No obvious cord edema or syrinx. Possible malacia changes at T12-L1. The conus terminates approximately at the L1 level. SPINAL LEVELS: C7-T1: No disc herniation or canal stenosis. Mild facet arthropathy on the right without neural foraminal stenosis. Ligamentum flavum thickening noted. T1-T2: No disc herniation or canal stenosis. No significant DJD or neuroforaminal stenosis. T2-T3: Small left paramedian disc herniation without cord impingement or foraminal encroachment. No significant facet arthrosis or neuroforaminal stenosis. T3-T4: No disc herniation or canal stenosis. Minor facet arthropathy noted bilaterally without significant neural foraminal stenosis. Mild costovertebral arthrosis on the right. T4-T5: Central to right paramedian extruded disc herniation with mild cephalad migration and flattening of the ventral dural sac with mild right-sided ventral cord deformity without canal stenosis. Minor facet arthrosis on the left. No significant neural foraminal stenosis. Mild bilateral costovertebral arthrosis. T5-T6: Central to left paramedian extruded disc herniation with slight cephalad migration without cord impingement or canal stenosis. Kfgq-fl-xomrsnci facet arthrosis on the left with mild left-sided neural foraminal stenosis without neural impingement. Costovertebral arthrosis noted on the right. T6-T7: Central to left central disc herniation noted with kdbv-fz-sttkyjwt left-sided ventral cord impingement and yyop-wc-xfvbrwig canal stenosis. No significant facet arthrosis or neuroforaminal stenosis. T7-T8: Central disc herniation noted, with qirbgvpo-uk-uivdcp ventral cord impingement asymmetric to the left with moderate central spinal canal stenosis. No significant facet arthrosis or neuroforaminal stenosis. Probable spondylitic myelomalacia. T8-T9: Central disc protrusion and mild flattening of the central dural sac without cord impingement or significant canal stenosis. No significant facet arthrosis or neuroforaminal stenosis. T9-T10: Right subarticular to foraminal disc protrusion without neural impingement or canal stenosis. No significant DJD. Minimal foraminal narrowing on the right. T10-T11: Central to left paramedian extruded disc herniation noted with the udcm-pl-kmltzssx ventral cord impingement and udrm-vg-wxedoywz spinal canal stenosis. No significant facet arthrosis or neuroforaminal stenosis. T11-T12: Shallow central to right paramedian disc protrusion without neural impingement or canal stenosis. Minor facet arthrosis noted on the left without significant neural foraminal stenosis. T12-L1: Broad-based central to right paramedian extruded disc herniation with cephalad migration with pfgp-xh-rpwhfjsq ventral cord impingement asymmetric to the left with associated ventral cord deformity and mild canal stenosis. No significant facet arthrosis or neuroforaminal stenosis. IMPRESSION: 1.? Multilevel thoracic DDD and spondylosis, with multilevel disc herniations throughout the thoracic spine, most apparent at C4-C5, T6-T7, T7-T8 and T10-T11 and T12-L1 with moderate to severe ventral cord impingement asymmetric to the left at T7-T8 and probable spondylitic myelomalacia. Xwhn-uz-opxaqgwq degrees of spinal canal stenosis at multiple levels as detailed above. Probable myelomalacia at T12-L1 associated with the ygbt-lf-abwwdznw ventral cord impingement. ? 2.? Multilevel predominately ttkn-xf-hzxyznut degrees of facet joint and costovertebral arthrosis without significant neural foraminal stenosis. ? 3.? Possible, equivocal mediastinal lymphadenopathy in the right paratracheal space. If clinically warranted, CT of the chest with contrast would be of additional value to further assess. ? The PSA staff will call to confirm receipt of this report with acknowledgement of the findings and any recommendations. Assessment & Plan Assessment & Plan (1) Degeneration, intervertebral disc, thoracic: Code(s): M51.34 - Other intervertebral disc degeneration, thoracic region Category: Medical (2) Disc degeneration, lumbar: Code(s): M51.36 - Other intervertebral disc degeneration, lumbar region Category: Medical (3) Spondylosis without myelopathy or radiculopathy, lumbar region: Code(s): M47.816 - Spondylosis without myelopathy or radiculopathy, lumbar region Category: Medical (4) Spinal stenosis, thoracic: Code(s): M48.04 - Spinal stenosis, thoracic region Category: Medical Plan Will update lumbar spine MRI to assess for neural integrity, degree of degeneration, nerve compression and follow-up on previous MRI findings. The patient is advised to continue current medications, including gabapentin, baclofen and ibuprofen. In meantime, she is advised to avoid strenuous activity, excessive bending or twisting or heavy lifting. Continue gentle stretching exercises and heat therapy. Extensive discussion regarding the risks and benefits of SCS trial and implant procedures and all questions were answered to patient satisfaction. Will proceed with [facility] Lumbar SCS trial pending psychology clearance if no acute findings on MRI. All questions and concerns have been answered and patient agreed with the treatment plan. Follow up for MRI results and sooner as needed. Orders: Orders MR lumbar spine wo con 07/18/25 M47.816 - Spondylosis without myelopathy or radiculopathy, lumbar region, M48.04 - Spinal stenosis, thoracic region, M51.34 - Other intervertebral disc degeneration, thoracic region, M51.36 - Other intervertebral disc degeneration, lumbar region Patient Instructions: - Consider behavioral evaluation for spinal cord stimulator trial if no acute findings on MRI. - Obtain an updated MRI to assess current spinal condition. - Continue current medications, including ibuprofen, baclofen and gabapentin. - Monitor pain levels and report any significant changes. Patient was informed and verbally consented to the use of an ambient scribe for clinic note documentation during this visit. Coding Level of Care Code Est Pt Level 4 (70144) Complex EM visit Add On G2211 Diagnoses Degeneration, intervertebral disc, thoracic M51.34 Disc degeneration, lumbar M51.36 Spondylosis without myelopathy or radiculopathy, lumbar region M47.816 Spinal stenosis, thoracic M48.04
--- OUTSIDE RECORDS SUMMARY | 2025-07-18 14:49 | XMS_ITS | Continuity of Care Document ---
Author Name [facility] Organization [facility] Care Team Providers Care Chair Inspector Name Role Phone [facility] Unavailable Unavailable Social History Combined list of available smoking, tobacco, and other social history from [facility] of Defense and [facility] facilities. Social History Type Response Date Comment Sourc e This section is an empty social history section. [facility]
--- OUTSIDE RECORDS SUMMARY | 2025-07-18 14:50 | XMS_ITS | Encounter Summary ---
Author Organization [facility] Address [address] [place] [address] Care Team Providers Care Wood Science Professor Name Role Phone Keyona Mills MD Primary Care Provider [phone] Reason for Referral * Consultation (Routine) - Closed Specialty Diagnoses / Procedures Referred By Contbrayden t Referred To Contact Pain Medicine Diagnoses Sacroiliitis, not elsewhere classified (CMS/[facility] V24) Keyona Mills MD [address] [place] [address] Phone: tel: fax: Kaylynn Melo [address] [place] [address] Phone: tel: Referral ID Status Reason Start Date Expiration Date V isits Requested Visits Authorized [id number] Closed Specialty Services Required 07/10/2025 07/10/2026 12 12 Reason for Visit * Reason Onset Date Comments Referral 07/07/2025 Pain Management Insurance Referral Encounter Details Date Type Department Care Team (Late st Contact Info) Description 07/07/2025 Telephone Adult Medicine [facility] [address] [place] [address] Keyona Mills MD [address] [place] [address] Social History Tobacco Use Types Packs/Day Years Used Date Smoking Tobacco: Every Day Cigarettes 1 48.7 Started: 1976 Passive Smoke Exposure: Current Smokeless Tobacco: Never Alcohol Use Standard Drinks/Week Comments Yes 0 (1 standard drink = 0.6 oz pur e alcohol) Housing Instability Answer Date Recorde d Are you worried that in the next 2 months you may not have stable housing? No 03/30/2025 Food Access & Nutrition Answer Date Rec orded Do you have access to a vari ety of food including fruits and vegetables? Yes 03/30/2025 Access to Healthcare Answer Date Record ed Within the last 3 months, ho w many times did you visit the emergency department for your medical care? 0 03/30/2025 Health Literacy Answer Date Recorded How often do you need to hav e someone help you when you read instructions, pamphlets, or other written material from your doctor or pharmacy? Never 03/30/2025 Caregiver: How often do you need to have someone help you when you read instructions, pamphlets, or other written material from your doctor or pharmacy? Not on file 03/30/2025 Financial Risk Answer Date Recorded How hard is it for you to pa y for the very basics like food, housing, medical care, and air conditioning / heating? Not very hard 03/30/2025 Transportation Answer Date Recorded Has the lack of transportati on kept you from meetings, work, or from getting things needed for daily living? No Has the lack of transportati on kept you from medical appointments or from getting medications? No 03/30/2025 Social Isolation Answer Date Recorded How often do you feel lonely or isolated from th ose around you? Rarely 03/30/2025 Food Risk Answer Date Recorded Within the past 12 months we worried whether our food would run out before we got money to buy more. Never true 03/30/2025 Within the past 12 months th e food we bought just didn't last and we didn't have money to get more. Never true 03/30/2025 Dependent Care Answer Date Recorded Do you need help finding or paying for care for your loved ones. For example, child nutrition manager or elderly care for an older adult? No 03/30/2025 Education Answer Date Recorded Do you think completing more education or training, like finishing a GED, going to college, or learning a trade, would be helpful for you? No 03/30/2025 Employment and Income Answer Date Recor ded During the last four weeks, have you been actively looking for work? No 03/30/2025 Living Situation Answer Date Recorded What is your living situation? 0 03/30/2025 Comments Unknown Sex and Gender Information Value Date Recorded Sex Assigned at Not on file Legal Sex Female 12:38 AM EST Gender Identity Not on file Sexual Orientation Not on file documented as of this encounter Progress Notes * Sachi Villeda - 07/07/2025 3:44 PM EDT What insurance does the patient have today? Payor: @[email or web address] Referrals cannot be processed if the insurance is not accurate. If the insurance listed above is NO BILLING INFORMATION FOUND FOR THIS ENCOUNTER then the patients correct insurance must be obtainedand registered in [facility] or their referral can not be processed. Name of person calling to request this referral? [place] [place] Referred To Provider (Include first and last name): Kaylynn Steele NPI (if known): [id number] Order/Specialty requested pain medicine Chief Complaint (Note: This is not a body part or a procedure): M46.1 Has the patient seen provider for this problem/Dx before? Referred To Provider Address: Referred To Provider Referred To Provider Does patient have an appointment scheduled?: yes If yes, what is the date of the appointment?: 07/10/25 Is this a retro request? no Number of visits requested: 12 Is this appointment related to: MVA or worker compensation? no documented in this encounter Plan of Treatment Upcoming Encounters Date Type Department Care Team (Late st Contact Info) Description 08/09/2025 10:00 AM EDT Office Visit Adult Medicine [facility] [address], [place] [phone] Deangelo Johns NP [address], [place] 09/19/2025 11:00 AM EST Office Visit Bariatric Surgery - [place] [address] [facility] [address] [place] [phone] Nika Mcdermott PA [address] [place] [address] 11/01/2025 2:00 PM EST Ancillary Procedure Pulmonolgy [facility] [address] [facility] [address] [place] [phone] 11/01/2025 2:45 PM EST Office Visit Pulmonolgy [facility] [address] [facility] [address] [place] [phone] Payal Yoon MD [address] [place] [address] Scheduled Referrals Name Type Priority Associated Diagnoses Order Schedule Ambulatory referral to Pain Medicine Outpatient Referral Routine Sacroiliitis, not elsewhere classified (CMS/[facility] V24) Expected: 07/26/2025, Expires: 07/07/2026 documented as of this encounter Visit Diagnoses Diagnosis Sacroiliitis, not elsewhere classified (CMS/[facility] V24)- Primary Sacroiliitis, not elsewhere classified documented in this encounter Additional Health Concerns Assessment Noted Time PHQ-9 Depression Total Score: 0 03/29/20 25 4:29 PM EDT documented as of this encounter Care Teams Wood Science Professor Relationship Specialty Start Date End Date Keyona Mills MD [address], [place] PCP - General Internal Medicine 08/10/20 documented as of this encounter
--- OUTSIDE RECORDS SUMMARY | 2025-07-18 14:50 | XMS_ITS | Clinical Summary ---
Author Organization [facility] Address [address] [place] [address] Phone Care Team Providers Care Gourmet Coffee Attendant Name Role Phone Keyona Mills MD Primary Care Provider [phone] Allergies Active Allergy Reactions Criticality Noted Date Comments Cephradine Hives 08/18/2007 Egg 08/18/2007 Iodinated Contrast Media Hives 08/18/2007 Iodine Hives 06/13/2021 Nut - Unspecified Other 10/06/2007 PEANUTS AND CASHEWS OKAY Prochlorperazine Other 08/18/2007 Seizure Medications acetaminophen/d iphenhydramine (TYLENOL PM EXTRA STRENGTH ORAL) Take 1 capsule by mouth at bedtime as needed. 8 Active cholecalciferol (VITAMIN D-3) 25 mcg (1,000 unit) tablet Take 2 Tabs by mouth daily. 9 Active fluticasone propionate (FLONASE) 50 mcg/actuation nasal spray 2 Sprays by Nasal route daily. 4 Active fluticasone-ume clidinium-vilan terol (Trelegy Ellipta) 100-62.5-25 mcg inhaler Inhale 100 mcg into the lungs daily. 4 Active gabapentin (NEURONTIN) 300 mg capsule Take 1 Capsule by mouth 3 times daily. 4 Active ipratropium-alb uteroL (DUONEB) 0.5-2.5 mg/3 mL nebulizer solution Inhale 3 mL into the lungs 4 times daily. 4 Active albuterol 2.5 mg /3 mL (0.083 %) nebulizer solutionIndicat ions:Chronic obstructive pulmonary disease, unspecified COPD type ([facility] V24, [facility] V28) Take 3 mL (2.5 mg total) by nebulization every 6 (six) hours if needed for wheezing. 360 mL 11 4 025 Active albuterol HFA (PROAIR HFA ; PROVENTIL HFA ; VENTOLIN HFA) 90 mcg/actuation inhaler Inhale 2 puffs by mouth every 4 (four) hours if needed for wheezing. 6.7 g 1 5 Active sertraline (ZOLOFT) 100 mg tabletIndicatio ns:Severe obesity due to excess calories with serious comorbidity and body mass index (BMI) 120% of 95th percentile to less than 140% of 95th percentile for age in pediatric p* ([facility] V24, [facility] V28),Prediabete s Take 2 Tablets by mouth daily. 180 each 1 5 Active levothyroxine (SYNTHROID, LEVOTHROID) 137 mcg tabletIndicatio ns:Severe obesity due to excess calories with serious comorbidity and body mass index (BMI) 120% of 95th percentile to less than 140% of 95th percentile for age in pediatric p* ([facility] V24, [facility] V28),Prediabete s Take 1 tablet (137 mcg total) by mouth 1 (one) time each day before breakfast. 90 tablet 1 5 025 Active pantoprazole (PROTONIX) 40 mg EC tablet Take 1 tablet (40 mg total) by mouth 1 (one) time each day. Do not crush, chew, or split Please schedule medication follow up to continue future refills 90 each 5 025 Active fluticasone-ume clidinium-vilan terol (Trelegy Ellipta) 100-62.5-25 mcg inhalerIndicati ons:Chronic obstructive pulmonary disease, unspecified COPD type (CMS/HCC V24, CMS/HCC V28) Inhale 1 puff (100 mcg total) by mouth 1 (one) time each day. Rinse mouth with water after use to reduce aftertaste and incidence of candidiasis. Do not swallow. 3 each 3 5 026 Active albuterol HFA (PROAIR HFA ; PROVENTIL HFA ; VENTOLIN HFA) 90 mcg/actuation inhalerIndicati ons:Chronic obstructive pulmonary disease, unspecified COPD type (CMS/HCC V24, CMS/HCC V28) Inhale 2 puffs by mouth every 6 (six) hours if needed for wheezing or shortness of breath. 3 each 3 5 026 Active amitriptyline (ELAVIL) 75 mg tablet Take 1 tablet (75 mg total) by mouth at bedtime. at bedtime. 90 tablet 1 5 Active simvastatin (ZOCOR) 40 mg tablet Take 1 tablet (40 mg total) by mouth at bedtime. 90 each 5 Active baclofen (LIORESAL) 10 mg tablet Take 1 tablet (10 mg total) by mouth 3 (three) times a day. 270 tablet 1 5 Active tirzepatide, weight loss, (Zepbound) 5 mg/0.5 mL injection Inject 0.5 mL (5 mg total) under the skin every 7 (seven) days. 2 mL 5 025 Active Problems Problem Noted Date Diagnosed Date Mediastinal lymphadenopathy 12/17/2022 Overview (09/28/2024): Possible mediastinal lymphadenopathy in the right paratracheal space seen on thoracic MRI. CT chest with contrast recommended if clinically warranted. This has been stable on low dose chest CTs for quite some time now. We will continue to follow. Thoracic degenerative disc disease 12/17/2022 Overview (09/28/2024): Multilevel thoracic degenerative disc disease and spondylolysis with multilevel disc herniations throughout the thoracic spine, most apparent at C4-C5, T6-T7, T7-T8, T10-T11, T12-L1. 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 Leucocytosis 11/20/2022 DDD (degenerative disc disease), cervical 2019 DDD (degenerative disc disease), lumbar 08/15/20 20 Thoracic spondylosis 08/15/2020 Vitamin D deficiency 04/05/2019 Pulmonary nodules 10/28/2018 Overview (09/28/2024): Last Assessment & Plan: Continue following the lung cancer screening program Obstructive sleep apnea 10/12/2018 Overview (09/28/2024): [facility] Home Polysomnogram: Date 10/06/2018; AHI 13, Unclassified apneas 1; Obstructive apneas 40; Central apneas 1; Mixed apneas 0; hypopneas 49; average oxygen saturation 92% (lowest 75% without saturations <88% for 5% or more of study) - Obstructive Sleep Apnea - mild; mostly hypopneas and obstructive apneas; without sleep related hypoventilation by 2018 home polysomnogram. Last Assessment & Plan: If the patient wants to use a CPAP and if she is more symptomatic we will repeat a new sleep study. Obesity (BMI 30.0-34.9) 07/23/2018 Snoring 07/23/2018 Depression 01/22/2016 Tobacco use disorder 11/02/2013 COPD (chronic obstructive pu lmonary disease) ([facility] V24, [facility] V28) 10/31/2013 Overview (09/28/2024): emphysema by low DLCO in prev smoker Last Assessment & Plan: Patient had a normal PFT back in 2018 but given her dyspnea on exertion and her strong history of smoking most likely she has developed now either moderate COPD that is not responding to the dual therapy. I recommended the followin. Quit smoking. She will think about it 2. Change Anoro to Trelegy 1 puff once a day 3. New pulmonary function test 4. Continue with albuterol as needed Return to clinic in 3 months for follow-up Bunion 08/18/2007 Overview (09/28/2024): bunionectomy 1994 Disorder of bone and cartilage 08/18/2007 Overview (09/28/2024): IMO update Endometriosis 08/18/2007 Overview (09/28/2024): hysterectomy 1995, Dr. Dominguez IMO update Fibromyalgia 08/18/2007 Overview (09/28/2024): IMO update Esophageal reflux 08/18/2007 Hypothyroidism 08/18/2007 Overview (09/28/2024): onset 1998 Mixed hyperlipidemia 08/18/2007 Encounters Date Type Department Care Team Description 07/07/2025 Telephone Adult Medicine [address] [phone] Keyona Mills MD 05/18/2025 9:30 AM EDT Consult Bariatric Surgery [address] [place] [address] Nika Mcdermott PA Mixed hyperlipidemia (Primary Dx); Severe obesity (BMI 35.0-35.9 with comorbidity) (CMS/HCC V24, CMS/HCC V28); Obstructive sleep apnea 05/09/2025 8:30 AM EDT Office Visit Adult [address] [phone] Keyona Mills MD Degeneration of intervertebral disc of lumbar region with discogenic back pain and lower extremity pain (Primary Dx); Tobacco use disorder; Depression, unspecified depression type; Severe obesity (BMI 35.0-35.9 with comorbidity) (CMS/HCC V24, CMS/HCC V28); Gastroesophageal reflux disease, unspecified whether esophagitis present; Fibromyalgia; Hypothyroidism, unspecified type 05/02/2025 11:45 AM EDT Office Visit Pulmonolgy - [place] [facility] [address] [place] [address] Payal Yoon MD Chronic obstructive pulmonary disease, unspecified COPD type (CMS/HCC V24, CMS/HCC V28) (Primary Dx); Lung nodules; Smoker 04/21/2025 Telephone Adult Medicine [address] [phone] Keyona Mills MD from Last 3 Months Immunizations Name Administration Dates Next Due Pneumococcal conjugate 20 va lent (Prevnar 20, PCV 20) 2mo and older 03/27/2023 Td Tetanus diptheria (Tdvax) 7yo and older 05/09 Tdap Tetanus diptheria acell ular pertussis (Boostrix; Adacel) 7yo and older 06/17/2023 Surgical History Surgery Date Site/Laterality Comments TONSILLECTOMY PROCEDURE: HISTORICAL TONSILLECTOMY BUNIONECTOMY PROCEDURE: OH CORRJ HLX VLGS BNCTY SESMDC W/DOUBLE OSTEOTOMY HYSTERECTOMY PROCEDURE: HISTORICAL HYSTERECTOMY; COMMENT: endometriosis COLONOSCOPY 2004 PROCEDURE: OH COLONOSCOPY STOMA DX INCLUDING COLLJ SPEC SPX; COMMENT: Up to cecum, well prepared. by Dr. Perez COLONOSCOPY 07/25/08 PROCEDURE: OH COLONOSCOPY STOMA DX INCLUDING COLLJ SPEC SPX; COMMENT: Up to cecum, regular preparation, normal colon exam Medical History Medical History Date Comments Myalgia and myositis, unspecified 08/18/2007 DX:Myalgia and myositis, unspecified Unspecified hypothyroidism 08/18/2007 DX:Un specified hypothyroidism; COMMENT: onset 1998 Nonspecific (abnormal) findi ngs on radiological and other examination of lung field 08/18/2007 DX:Nonspecific (abnormal) fi ndings on radiological and other examination of lung field; COMMENT: pulmonary nodule, followed by Dr. Hollingsworth Endometriosis, site unspecified 08/18/2007 DX:Endometriosis, site unspecified; COMMENT: hysterectomy 1995, Dr. Dominguez Bunion 08/18/2007 DX:Bunion; COMME NT: bunionectomy 1993 Disorder of bone and cartila ge, unspecified 08/18/2007 DX:Disorder of bone and cart ilage, unspecified Mixed hyperlipidemia 08/18/2007 DX:Mixed hy perlipidemia Esophageal reflux 08/18/2007 DX:Esophageal reflux Anxiety 01/11/2013 DX:Anxiety Tobacco use disorder 11/02/2013 DX:Tobacco use disorder Family History Medical History Relation Name Comments Heart attack Father Anemia Maternal Grandmother Colon cancer Maternal Grandmother Arthritis Mother Asthma Mother Other: kidney probelms Mother Thyroid disease Mother Relation Name Status Comments Father Maternal Grandmother Mother Social History Tobacco Use Types Packs/Day Years Used Date Smoking Tobacco: Every Day Cigarettes 1 48.7 Started: 1976 Passive Smoke Exposure: Current Smokeless Tobacco: Never Tobacco Cessation:Ready to Q uit: Not Asked; Counseling Given: Not Answered Alcohol Use Standard Drinks/Week Comments Yes 0 [...] for your loved ones. For example, child welfare consultant or elderly care for an older adult? [...] on file Sexual Orientation Not on file Obstetrics History Last Filed Vital Signs Vital Sign Reading Time Taken Comments Blood Pressure 121/73 05/18/2025 9:28 AM EDT Patient in pain Pulse 97 05/18/2025 9:28 AM EDT Temperature 36.4 C (97.6 F) 05/18/2025 9:28 AM EDT Respiratory Rate 20 05/09/2025 8:38 AM EDT Oxygen Saturation 93% 05/02/2025 12: 03 PM EDT Inhaled Oxygen Concentration - - Weight 84.4 kg (186 lb) 05/18/2025 9:28 AM EDT Height 152.4 cm (5') 05/18/2025 9:28 AM EDT Body Mass Index 36.33 05/18/2025 9:28 AM EDT Plan of Treatment Upcoming Encounters Date Type Department Care Team (Late st Contact Info) Description 08/09/2025 10:00 AM EDT Office Visit Adult Medicine [facility] [address] [place], [place] [phone] Deangelo Johns NP [address] [place], [place] 09/19/2025 11:00 AM EST Office Visit Bariatric Surgery - [place] [facility] [address] [place] [address] Nika Mcdermott PA [address] [place] [address] 11/01/2025 2:00 PM EST Ancillary Procedure Pulmonolgy - [place] [facility] [address] [place] [address] 11/01/2025 2:45 PM EST Office Visit Pulmonolgy - [address] [place] [phone] Payal Yoon MD [address] [place] [address] Health Maintenance Due Date Last Done Comments Cervical Cancer Screening: Pap Smear 1981 Zoster Vaccines (1 of 2) 2010 RSV Immunization Adult Patients (1 - Risk 60-74 years 1-dose series) 2020 HIV Screening 10/25/2022 Colorectal Cancer Screening: Colonoscopy 08/19/2023 08/19/2018 COVID-19 Vaccine ( season) 2025 12/24/2021, 05/03/2021, 04/12/2021 Influenza Vaccine (#1) 2025 Lung Cancer Screening (Low Dose CT) 09/06/2025 09/06/2024, 09/07/2023, 09/02/2022, Additional history exists Social Influencers of Health Screening 03/30/2026 03/30/2025 Breast Cancer Screening 06/23/2026 06/23/2024 Cholesterol Screening (Lipid Panel) 03/28/2030 03/28/2025, 08/22/2024, 08/22/2024 DTaP,Tdap,and Td Vaccines (4 - Td or Tdap) 06/17/2033 06/17/2023, 05/09/2022, 11/16/2001 Hepatitis C Screening Completed 02/16/2014 Pneumococcal Vaccine: 50+ Years Completed 03/27/2023 Depression Screening Completed 03/29/2025 HIB Vaccines Aged Out No longer eligi ble based on patient's age to complete this topic HPV Vaccines Aged Out No longer eligi ble based on patient's age to complete this topic Hepatitis A Vaccines Aged Out No long er eligible based on patient's age to complete this topic Hepatitis B Vaccines Aged Out No long er eligible based on patient's age to complete this topic IPV Vaccines Aged Out No longer eligi ble based on patient's age to complete this topic MMR Vaccines Aged Out No longer eligi ble based on patient's age to complete this topic Meningococcal ACWY Vaccine Aged Out N o longer eligible based on patient's age to complete this topic Meningococcal B Vaccine Aged Out No l onger eligible based on patient's age to complete this topic RSV Immunization Patients Under 20 months Aged Out No longer eligible based on patient's age to complete this topic Varicella Vaccines Aged Out No longer eligible based on patient's age to complete this topic Procedures Procedure Name Priority Date/Time Associated Diagnosis Comments LIPID PANEL WITH REFLEX TO DIRECT LDL Routine 03/28/2025 1:49 PM EDT Vitamin D deficiency Hypothyroidism, unspecified type Chronic obstructive pulmonary disease with acute exacerbation (CMS/HCC V24, CMS/HCC V28) Obesity (BMI 30.0-34.9) Mixed hyperlipidemia CT LUNG SCREENING LOW DOSE Routine 09/06/2024 3:01 PM EDT HM COLONOSCOPY Routine 08/19/2018 HEPATITIS C SCREENING Routine 02/16/2014 from Last 3 Months or Most Recently Relevant to Health Maintenance Results * (ABNORMAL) Lipid panel with reflex to direct LDL (03/28/2025 1:49 PM EDT) Cholesterol 179 0 - 200 mg/dL LAB CHEMISTRY METHOD 03/28/2025 4:33 PM [facility] Triglycerides 95 0 - 150 mg/dL LAB CHEMISTRY METHOD 03/28/2025 4:33 PM [facility] HDL 57 >=40 mg/dL LAB CHEMISTRY METHOD 03/28/2025 4:33 PM [facility] LDL Calculated 103(H) 0 - 100 mg/dL LAB CHEMISTRY METHOD 03/28/2025 4:33 PM [facility] VLDL Cholesterol Iglesia 19 mg/dL LAB CHEMISTRY METHOD 03/28/2025 4:33 PM [facility] Non HDL Chol. (LDL+VLDL) 122 <145 mg/dL LAB CHEMISTRY METHOD 03/28/2025 4:33 PM EDT [facility] Chol/HDL Ratio 3.1 0.0 - 4.4 LAB CHEMISTRY METHOD 03/28/2025 4:33 PM EDT [facility] Blood Venous blood specimen / Unknown Venipuncture / Unknown 03/28/2025 1:49 PM EDT 03/28/2025 1:49 PM EDT us Jeremy SIMMONS LAB BLOOD ORDERABLES Fin al Result [facility] [address] [place] [address], [place] [phone] * CT LUNG SCREENING LOW DOSE (09/06/2024 3:01 PM EDT) Anatomical Region Laterality Modality Computed Tomogra phy 09/06/2024 1:34 PM EDT Narrative 09/06/2024 3:01 PM EDT [facility] Diagnostic Imaging Department [address] [place] [address] Patient: KERRY LOPESECCA Porfirio FullerB./Age/Sex: 1960 - 64 - F Unit#: [id number] [facility] Ordering Physician: MICHAEL SMITH MD CT Lung Screening Low Dose - 09/06/24 - 1356 Report Status:Signed Chest CT, 09/06/2024 2:06 PM. TECHNIQUE: Low-dose CT of the chest without intravenous contrast administration. Coronal and sagittal reformats and MIP reconstructions were created. Dose length product: 161 mGy-cm. HISTORY: 47 LEROY, CURRENT SMOKER COMPARISON: 09/03/2023. FINDINGS: Lungs/pleura: Trace aspirated debris in the trachea and right mainstem bronchus. Normal caliber airways. Mosaic attenuation throughout both lungs suggesting multifocal air trapping. Calcified granuloma in the superior segment of the left lower lobe. Stable 3 mm nodule in the periphery of the left lower lobe, series 3 image 148. No pleural effusion or pneumothorax. Mediastinum/Manny: Stable mildly prominent mediastinal nodes. The largest is a right precarinal node measuring 11 mm short axis. No mediastinal mass. Limited evaluation of the manny and without contrast with no appreciable mass or adenopathy. Vasculature: Normal caliber pulmonary arteries. Aberrant right subclavian artery. Mild atherosclerotic calcifications. Cardiac: Normal heart size. Minimal coronary artery calcification. Chest wall: No mass or lymphadenopathy. Limited abdomen: Hepatic steatosis. Bones: Degenerative changes of the spine and shoulders. IMPRESSION: Lung RADS 2. Guidelines recommend repeat low-dose screening CT in 12 months. Dictating Physician: GILBERT JENKINS MD Electronically Signed by: GILBERT JENKINS MD Dic Date/Time: 09/06/24 1406 Sign date/Time: 09/06/24 1501 Procedure Note Gilbert Jenkins MD - 09/13/2024 [facility] Diagnostic Imaging Department [address] [place] [address] Patient: MARIANNELIZETHSEN Dejesus.O.B./Age/Sex: 1960 - 64 - F Unit#: [id number] Location/Status: SPDICATLS/REG CLI Mnemonic/Ordering Site: [facility] Ordering Physician: IMCHAEL SMITH MD CT Lung Screening Low Dose - 09/06/24 - 1356 Report Status:Signed Chest CT, 09/06/2024 2:06 PM. TECHNIQUE: Low-dose CT of the chest without intravenous contrast administration. Coronal and sagittal reformats and MIP reconstructionswere created. Dose length product: 161 mGy-cm. HISTORY: 47 LEROY, CURRENT SMOKER COMPARISON: 09/03/2023. FINDINGS: Lungs/pleura: Trace aspirated debris in the trachea and right mainstem bronchus. Normal caliber airways. Mosaic attenuation throughout bothlungs suggesting multifocal air trapping. Calcified granuloma in the superiorsegment of the left lower lobe. Stable 3 mm nodule in the periphery of the leftlower lobe, series 3 image 148. No pleural effusion or pneumothorax. Mediastinum/Manny: Stable mildly prominent mediastinal nodes. The largestis a right precarinal node measuring 11 mm short axis. No mediastinal mass.Limited evaluation of the manny and without contrast with no appreciable mass or adenopathy. Vasculature: Normal caliber pulmonary arteries. Aberrant rightsubclavian artery. Mild atherosclerotic calcifications. Cardiac: Normal heart size. Minimal coronary artery calcification. Chest wall: No mass or lymphadenopathy. Limited abdomen: Hepatic steatosis. Bones: Degenerative changes of the spine and shoulders. IMPRESSION: Lung RADS 2. Guidelines recommend repeat low-dose screening CT in 12months. Dictating Physician: GILBERT JENKINS MD Electronically Signed by: GILBERT JENKISN MD Dic Date/Time: 09/06/24 1406 Sign date/Time: 09/06/24 1501 Michael Smith MD IM CT PROCEDURES Final Result * Colonoscopy (08/19/2018) Pathologist [facility] Colonoscopy No Interpretation , Abstracted Anatomical Region Laterality Modality Other Historical Jose PLEITEZ HEALTH MAINTENANCE Final Result * Hepatitis C Screening (02/16/2014) Pathologist [facility] Hepatitis C Screening Abstracted Historical Provider HEALTH MAINTENANCE Final Result from Last 3 Months or Most Recently Relevant to Health Maintenance Insurance [employer] Care Teams Gourmet Coffee Attendant Relationship Specialty Start Date End Date Keyona Mills MD [address] [place] [id number] PCP - General Internal Medicine 08/10/20
--- OUTSIDE RECORDS SUMMARY | 2025-07-18 14:50 | XMS_ITS | Clinical Summary ---
Author Organization [facility] Address [address] [place] [address] Care Team Providers Care Ground Wood Supervisor Name Role Phone Unavailable Primary Care Provider [...]
--- OUTSIDE RECORDS SUMMARY | 2025-07-18 14:50 | XMS_ITS | Encounter Summary ---
Author Organization [facility] Address [address] [place] [address] Care Team Providers Care Low Altitude Air Defense Gunner Name Role Phone Keyona Mills MD Primary Care Provider [phone] Reason for Visit * Reason Onset Date Comments COPD 10/25/2024 Encounter Details Date Type Department Care Team (Late st Contact Info) Description 10/25/2024 Nurse Triage Adult Medicine [facility] [address] [place] [phone] Keyona Mills MD [address] [place] [address] Social History Tobacco Use Types Packs/Day Years [...] exposures) No Protocols used: Cough - Acute [id number]-PI * Bill Marshall - 10/25/2024 9:04 AM [...] traveled recently to another state outside of [place], [place], [place], [place], [place], [place], [place]? no o If yes, did you quarantine [...] of accident/Injury: No If yes, gather 3rd republican insurance information Third Democrat Information: not applicable PCP: Keyona Mills MD Payor: [employer] / Plan: [employer] / Product Type: *No Product type* / documented in this encounter Plan of Treatment Upcoming Encounters Date Type Department Care Team (Late st Contact Info) Description 08/09/2025 10:00 AM EDT Office Visit Adult Medicine [address] [phone] Deangelo Johns NP [address] [place] [address] 09/19/2025 11:00 AM EST Office Visit Bariatric Surgery - [place] [facility] [address] [place] [address] Nika Mcdermott PA [address] [place] [address] 11/01/2025 2:00 PM EST Ancillary Procedure Pulmonolgy - [place] 175 [facility] [address] [place] [phone] 11/01/2025 2:45 PM EST Office Visit Pul[address] [place] [phone] Payal Yoon MD [address] [place] [address] documented as of this encounter Visit Diagnoses Not on filedocumented in this encounter Care Teams Low Altitude Air Defense Gunner Relationship Specialty Start Date End Date Keyona Mills MD [address] [place] [address] PCP - General Internal Medicine 08/10/20 documented as of this encounter
== END 2025-07-18 14:01 | disposition home or self-care (01) ==
LOC: HO.PMC 13:34
PROVIDERS: PCP Internal Medicine; Visit Provider Nurse Practitioner Family
DX: M51.34 Other intervertebral disc degeneration, thoracic region (principal); M51.369 Other intervertebral disc degeneration, lumbar region without mention of lumbar back pain or lower extremity pain; M47.816 Spondylosis without myelopathy or radiculopathy, lumbar region; M48.04 Spinal stenosis, thoracic region
CPT/HCPCS: 99214

== ENCOUNTER → 2025-07-18 13:33 | Outpatient (BNVA) | payer OTHER, SELFPAY | PROVIDERS: PCP Internal Medicine; Visit Provider Nurse Practitioner Family | DX: M47.816 Spondylosis without myelopathy or radiculopathy, lumbar region (principal); M48.04 Spinal stenosis, thoracic region; M51.34 Other intervertebral disc degeneration, thoracic region; M51.360 Other intervertebral disc degeneration, lumbar region with discogenic back pain only | CPT/HCPCS: 99212 ==

== ENCOUNTER → 2025-08-14 18:49 | Outpatient (BNV) | payer OTHER, SELFPAY | PROVIDERS: Visit Provider Radiology Diagnostic Radiology | DX: M99.63 Osseous and subluxation stenosis of intervertebral foramina of lumbar region (principal) | CPT/HCPCS: 72148 ==

== ENCOUNTER 2025-08-14 18:51 | Outpatient (REF) | payer OTHER, SELFPAY ==
--- OUTSIDE RECORDS SUMMARY | 2024-04-29 07:15 | XMS_ITS ---
Author Organization [facility] Address [address] [place] [address] Care Team Providers Care Certified Genetic Counselor Name Role Phone Lina PLEITEZ, Keyona Reynoso Primary Care Provider Unav ailable Gregoria Doss Unavailable [phone] Encounters Encounter Location Date Provider Diagnosis [address] [address] 04/29/2024 Gregoria Romario Plan Of Treatment Next Appt Details Provider Name:Gregoria Doss , 10/24/2025 10:00:00 AM, [address] [facility], [place], [address], Progress Notes * Elizabeth CHU MDOB: [birth year] (64 yo F)Acc No.[id number]:04/29/2024 Progress Note Patient: Porfirio MEJIA Elizabeth Monroy Provider: Keiry Doss DPM :1960 A ge:63 Y S ex:Female Date:04/29/2024 Address:[address] [id number] Pcp:Keyona Mills MD Subjective: * Chief Complaints: [...] 0 04/29/2024 Generated for Dmitry gleason/Elizabeth/Dalton on: 0 08/14/2025 06:54 PM EDT
--- OUTSIDE RECORDS SUMMARY | 2024-09-12 11:00 | XMS_ITS ---
Author Organization [facility] Address [address] [place] [address] Care Team Providers Care As400 Administrator Name Role Phone Lina PLEITEZ, Keyona Reynoso Primary Care Provider Unav ailable Gregoria Doss Unavailable [phone] Encounters Encounter Location Date Provider Diagnosis [facility] [address] [place] [address] 09/12/2024 Gregoria Romario Plan Of Treatment Next Appt Details Provider Name:Gregoria Doss , 10/24/2025 10:00:00 AM, [address] [place], [address], Progress Notes * Elizabeth CHU MDOB: [birth year] (64 yo F)Acc No.[id number]:09/12/2024 Progress Note Patient: Porfirio MEJIA Elizabeth Monroy Provider: Keiry Doss DPM :1960 A ge:64 Y S ex:Female Date:09/12/2024 Address:[address] [id number] Pcp:Keyona Mills MD Subjective: * Chief Complaints: * * Medical History: Objective: * Vitals: Assessment: Plan: * Treatment: * Images: * The named appointment provid er may or may not be the originator of this progress note, and it is not deemed complete until electronically signed by the appointment provider. Sign off status: Pending * Provider: Keriy Doss DPM Date: Generated for Dmitry gleason/Elizabeth/Dalton on: 0 08/14/2025 06:54 PM EDT
--- OUTSIDE RECORDS SUMMARY | 2025-08-09 10:00 | XMS_ITS | Encounter Summary ---
Author Organization [employer] Address [address] [place] [address] Care Team Providers Care After School Driver Name Role Phone Keyona Mills MD Primary Care Provider [phone] Reason for Visit * Reason Comments Follow-up Follow up for Viral infection, of cough and congestion Encounter Details Date Type Department Care Team ([facility] st Contact Info) Description 08/09/2025 10:00 AM EDT Office Visit Adult Medicine [facility] [address], [place] [phone] Deangelo Johns, INTERNATIONAL TRADE ANALYST [address], [place] Chronic obstructive pulmonary disease with acute exacerbation (CMS/HCC V24, CMS/HCC V28) (Primary Dx); Obstructive sleep apnea; Hypothyroidism, unspecified type; Severe obesity due to excess calories with serious comorbidity and body mass index (BMI) 120% of 95th percentile to less than 140% of 95th percentile for age in pediatric p* (CMS/HCC V24, CMS/HCC V28); Mixed hyperlipidemia; Gastroesophageal reflux disease, unspecified whether esophagitis present; Depression, unspecified depression type; Prediabetes; Need for prophylactic vaccination and inoculation against influenza Social History Tobacco Use Types Packs/Day Years [...] for your loved ones. For example, child care aide or elderly care for an older adult? [...] Date Recorded What is your living situation? Unrecognized valu e 03/30/2025 Comments No Sex and Gender Information Value Date Recorded Sex Assigned at Not on file Legal Sex Female 12:38 AM EST Gender Identity Not on file Sexual Orientation Not on file documented as of this encounter Last Filed Vital Signs Vital Sign Reading Time Taken Comments Blood Pressure 115/88 08/09/2025 9:59 AM EDT Pulse 90 08/09/2025 9:59 AM EDT Temperature 36.2 C (97.2 F) 08/09/2025 9:59 AM EDT Respiratory Rate - - Oxygen Saturation 94% 08/09/2025 9:59 AM EDT Inhaled Oxygen Concentration - - Weight 78.9 kg (174 lb) 08/09/2025 9:59 AM EDT Height 152.4 cm (5') 08/09/2025 9:59 AM EDT Body Mass Index 33.98 08/09/2025 9:59 AM EDT documented in this encounter Ordered Prescriptions Prescription Sig Dispense Quantity Refills Last Filled Start Date End Date levothyroxine (SYNTHROID, LEVOTHROID) 137 mcg tabletIndications: Severe obesity due to excess calories with serious comorbidity and body mass index (BMI) 120% of 95th percentile to less than 140% of 95th percentile for age in pediatric p* (CMS/HCC V24, CMS/HCC V28),Prediabetes Take 1 tablet (137 mcg total) by mouth 1 (one) time each day before breakfast. 90 tablet 1 08/09/2025 02/05/2026 documented in this encounter Progress Notes * Deangelo Johns NP - 08/09/2025 10:00 AM EDT PATIENT'S PCP: Keyona Mills MD LAST VISIT IN THIS DEPARTMENT: 07/07/2025 I have obtained verbal consent from Elizabeth Chu prior to the recording. I have advised Elizabeth Chu that she may refuse the recording and require the recording to be turned off at any time during this encounter. Elizabeth Chu is a 64 y.o. (: 1960) female who presents today for: Chief Complaint Patient presents with Follow-up Follow up for Viral infection, of cough and congestion SUBJECTIVE History of Present Illness The patient is a 64-year-old female who presents for a routine follow-up. She reports no new health issues since her last visit and overall feels well. She has COPD, but herbreathing is currently stable. She has not needed to use her rescue inhaler, albuterol, and only uses Trelegy in the morning. However, she experiences difficulty in expelling phlegm, which occasionally causes gagging. This issue persists throughout the day. She has tried Mucinex DM, which provides some relief, but the problem remains. She has sleep apnea but does not use a CPAP machine. She plans to discuss this with her gas or water meter installer during her next visit in 10/2025. She has hypothyroidism and is on levothyroxine 133 mcg. She started taking Zepbound in 05/2025 for weight loss and has since lost 16 pounds. Her exercise is limited due to back issues, so she relies on the medication and dietary changes for weight loss. She experiences mild nausea for half a day after taking the medication but reports no abdominal pain,vomiting, or hypoglycemic episodes. She does have some constipation. She has high cholesterol and is taking simvastatin. She usually gets blood tests done before her visits but is unsure if one was ordered this time. She is still taking Protonix for GERD, which has been helpful. She is still taking Zoloft 100 mg for depression, which has been helpful. She has not received her influenza vaccine yet and does not plan to receive any more COVID-19 vaccines. She is unsure about the RSV vaccine. She is due for the shingles vaccine. She plans to travel to [facility] next month for about 2 weeks and will ensure she has enough medication for the trip. Wu spends November to March in [place] annually. She declines HIV testing. Diet: Watching what she eats Review Of System Review of Systems Constitutional: Negative. Respiratory: Negative. Cardiovascular: Negative. Gastrointestinal: Negative. Endocrine: Negative. Genitourinary: Negative. Musculoskeletal: Negative. Skin: Negative. Neurological: Negative. Hematological: Negative. PAST MEDICAL HISTORY: Patient Active Problem List Diagnosis Date Noted Mediastinal lymphadenopathy 12/17/2022 Thoracic degenerative disc disease 12/17/2022 Leucocytosis 11/20/2022 DDD (degenerative disc disease), cervical 08/15/2020 DDD (degenerative disc disease), lumbar 08/15/2020 Thoracic spondylosis 08/15/2020 Vitamin D deficiency 04/05/2019 Pulmonary nodules 10/28/2018 Obstructive sleep apnea 10/12/2018 Obesity (BMI 30.0-34.9) 07/23/2018 Snoring 07/23/2018 Depression 01/22/2016 Tobacco use disorder 11/02/2013 COPD (chronic obstructive pulmonary disease) ([facility] V24, [facility] V28) 10/31/2013 Bunion 08/18/2007 Disorder of bone and cartilage 08/18/2007 Endometriosis 08/18/2007 Fibromyalgia 08/18/2007 Esophageal reflux 08/18/2007 Hypothyroidism 08/18/2007 Mixed hyperlipidemia 08/18/2007 Past Surgical History: Procedure Laterality Date BUNIONECTOMY PROCEDURE: [facility] CORRJ HLX VLGS BNCTY SESMDC W/DOUBLE OSTEOTOMY COLONOSCOPY 2004 PROCEDURE: [facility] COLONOSCOPY STOMA DX INCLUDING COLLJ SPEC SPX; COMMENT: Up to cecum, well prepared. by Dr. Perez COLONOSCOPY 07/25/08 PROCEDURE: [facility] COLONOSCOPY STOMA DX INCLUDING COLLJ SPEC SPX; COMMENT: Up to cecum, regular preparation, normal colon exam HYSTERECTOMY PROCEDURE: HISTORICAL HYSTERECTOMY; COMMENT: endometriosis TONSILLECTOMY PROCEDURE: HISTORICAL TONSILLECTOMY SOCIAL HISTORY: Social History Tobacco Use Smoking status: Every Day Current packs/day: 1.00 Average packs/day: 1 pack/day for 48.7 years (48.7 ttl pk-yrs) Types: Cigarettes Start date: 1976 Passive exposure: Current Smokeless tobacco: Never Substance Use Topics Alcohol use: Yes FAMILY HISTORY: Family History Problem Relation Name Age of Onset Thyroid disease Mother Arthritis Mother Asthma Mother Other (Other: kidney probelms) Mother Colon cancer Maternal Grandmother Anemia Maternal Grandmother Heart attack Father 53.00 Family Status Relation Name Status Mother MGM (Not Specified) Father No partnership data on file Social Influencer of Health (SIOH): The following portions of the patient's chart were reviewed in this encounter and updated as appropriate: OBJECTIVES Vitals: 08/09/25 0959 BP: 115/88 Pulse: 90 Temp: 36.2 ??C (97.2 ??F) TempSrc: Temporal SpO2: 94% Weight: 78.9 kg (174 lb) Height: 1.524 m (60 ) Body mass index is 33.98 kg/m??. BMI is greater than 25.0 (above the normal range) - see Plan BP Readings from Last 5 Encounters: 08/09/25 115/88 05/18/25 121/73 05/09/25 120/72 05/02/25 89/75 03/30/25 122/80 Wt Readings from Last 5 Encounters: 08/09/25 0959 78.9 kg (174 lb) 05/18/25 0928 84.4 kg (186 lb) 05/09/25 0838 85.3 kg (188 lb) 05/02/25 1203 85.2 kg (187 lb 12.8 oz) 03/30/25 1439 84.8 kg (187 lb) Allergies Allergen Reactions Cephradine Hives Egg Iodinated Contrast Media Hives Iodine Hives Nut - Unspecified Other PEANUTS AND CASHEWS OKAY Prochlorperazine Other Seizure Active Medications: Current Outpatient Medications Medication Instructions acetaminophen/diphenhydramine (TYLENOL PM EXTRA STRENGTH ORAL) Take by mouth 3 (three) times a day if needed (Pain). OTC albuterol HFA (PROAIR HFA ; PROVENTIL HFA ; VENTOLIN HFA) 90 mcg/actuation inhaler 2 puffs, inhalation, Every 4 hours PRN albuterol 2.5 mg, nebulization, Every 6 hours PRN amitriptyline (ELAVIL) 75 mg, oral, Nightly, at bedtime. baclofen (LIORESAL) 10 mg, oral, 3 times daily cholecalciferol (VITAMIN D-3) 25 mcg (1,000 unit) tablet OTC fluticasone propionate (FLONASE) 50 mcg/actuation nasal spray 2 Sprays by Nasal route daily. gpufrllkafm-iffrhsnrzonn-dyxinjtqpl (Trelegy Ellipta) 100-62.5-25 mcg inhaler 100 mcg, inhalation, Daily, Rinse mouth with water after use to reduce aftertaste and incidence of candidiasis. Do not swallow. gabapentin (NEURONTIN) 300 mg capsule Take 1 capsule (300 mg total) by mouth 3 (three) times a day.Prescribed by Jeremy Delgadillo ipratropium-albuteroL (DUONEB) 0.5-2.5 mg/3 mL nebulizer solution Take 3 mL by nebulization if needed for shortness of breath or wheezing. Prescribed in Pulmonology levothyroxine (SYNTHROID, LEVOTHROID) 137 mcg, oral, Every morning before breakfast pantoprazole (PROTONIX) 40 mg, oral, Daily, Do not crush, chew, or split sertraline (ZOLOFT) 100 mg tablet Take 2 Tablets by mouth daily. simvastatin (ZOCOR) 40 mg, oral, Nightly Zepbound 7.5 mg, subcutaneous, Every 7 days Physical Exam Vitals reviewed. Constitutional: Appearance: Normal appearance. Cardiovascular: Rate and Rhythm: Normal rate and regular rhythm. Pulses: Normal pulses. Heart sounds: Normal heart sounds. Pulmonary: Effort: Pulmonary effort is normal. Breath sounds: Normal breath sounds. Abdominal: General: Bowel sounds are normal. Palpations: Abdomen is soft. Musculoskeletal: General: Normal range of motion. Cervical back: Normal range of motion and neck supple. Skin: General: Skin is warm and dry. Neurological: General: No focal deficit present. Mental Status: She is alert. Mental status is at baseline. IMAGING No Pertinent Imaging LABORATORY: CBC: Lab Results Component Value Date WBC 12.1 (H) 03/28/2025 HGB 14.1 03/28/2025 HCT 42.6 03/28/2025 MCV 96.4 03/28/2025 PLT 349 03/28/2025 CMP: Lab Results Component Value Date NA 140 03/28/2025 K 4.2 03/28/2025 CL 106 03/28/2025 CO2 27 03/28/2025 GLUCOSE 83 03/28/2025 BUN 6 03/28/2025 CREATININE 0.60 03/28/2025 CALCIUM 9.4 03/28/2025 PROT 7.4 03/28/2025 ALBUMIN 3.7 03/28/2025 BILITOT 0.5 03/28/2025 AST 24 03/28/2025 ALT 29 03/28/2025 ALKPHOS 76 03/28/2025 EGFR 100 03/28/2025 A1c/Microalbuminuria/LDL/GFR: Lab Results Component Value Date HGBA1C 5.7 03/28/2025 HGBA1C 5.7 08/22/2024 Lab Results Component Value Date LDLCALC 103 (H) 03/28/2025 CREATININE 0.60 03/28/2025 Lipids: Lab Results Component Value Date CHOL 179 03/28/2025 TRIG 95 03/28/2025 HDL 57 03/28/2025 LDLCALC 103 (H) 03/28/2025 VLDL 19 03/28/2025 NONHDLC 122 03/28/2025 CHOLHDL 3.1 03/28/2025 TSH: Lab Results Component Value Date TSH 2.08 03/28/2025 Lab Results Component Value Date LDLCALC 103 (H) 03/28/2025 1. Chronic obstructive pulmonary disease with acute exacerbation (CMS/HCC V24, [facility] V28) 2. Obstructive sleep apnea 3. Hypothyroidism, unspecified type 4. Severe obesity due to excess calories with serious comorbidity and body mass index (BMI) 120% of95th percentile to less than 140% of 95th percentile for age in pediatric p* (CMS/HCC V24, [facility] V28) 5. Mixed hyperlipidemia 6. Gastroesophageal reflux disease, unspecified whether esophagitis present 7. Depression, unspecified depression type 8. Prediabetes 9. Need for prophylactic vaccination and inoculation against influenza Assessment & Plan 1. Chronic Obstructive Pulmonary Disease (COPD): - Reports using Trelegy inhaler in the morning and has not needed rescue inhaler, albuterol - Experiences significant phlegm that she cannot expel, causing gagging - Mucinex DM has provided some relief - Return for further evaluation if changes in phlegm color, wheezing, or shortness of breath on exertion 2. Obstructive Sleep Apnea (SUSAN): - Does not currently use a CPAP machine - Plans to discuss CPAP use with gas or water meter installer in 10/2025 3. Hypothyroidism: - Currently on levothyroxine 133 mcg daily - Last TSH level normal 4. Weight management: - Started Zepbound in 05/2025 for weight loss and has lost 16 pounds - Experiences mild nausea the day after taking medication but no vomiting - Advised to take MiraLAX or Metamucil daily to help with constipation associated with GLP-1 medication 5. Hypercholesterolemia: - Currently taking simvastatin - Blood tests will be ordered to monitor cholesterol levels 6. Gastroesophageal Reflux Disease (GERD): - Continues to take Protonix, which has been helpful 7. Depression: - On Zoloft 100 mg daily, which has been effective 8. Prediabetes - Patient is to maintain a low carb diet. - She is to continue on Zepbound for weight loss which will also help with her prediabetes. 9. Health Maintenance: - Due for influenza vaccine, shingles vaccine, and RSV vaccine - Declines HIV testing - Influenza vaccine was offered today but patient is allergic to ask and has not had flu shot in many many years. At this time we will hold off on giving this vaccine. - Advised to get shingles and RSV vaccines at the pharmacy FOLLOW-UP: No follow-ups on file. Health Maintenance Due Topic Date Due Cervical Cancer Screening: Pap Smear Never done Zoster Vaccines (1 of 2) Never done RSV Immunization Adult Patients (1 - Risk 60-74 years 1-dose series) Never done HIV Screening Never done Colorectal Cancer Screening: Colonoscopy 08/19/2023 Influenza Vaccine (1) 07/17/2025 Deangelo Johns NP ADULT MEDICINE [address] [phone] Today's documentation was made using voice recognition software.This note may contain grammatical errors secondary to this software. documented in this encounter Plan of Treatment Upcoming Encounters Date Type Department Care Team (Late st Contact Info) Description 09/19/2025 11:00 AM EST Office Visit Bariatric Surgery - [address] [place] [phone] Nika Mcdermott PA [address] [place] [phone] 11/01/2025 2:00 PM EST Ancillary Procedure Pulmonology - [address] [phone] 11/01/2025 2:45 PM EST Office Visit Pulmonology - [address] [phone] Payal Yoon MD [address] [address] 11/08/2025 2:30 PM EST Office Visit Adult Medicine [facility] [address] [place] [phone] Keyona Mills MD [address], [place] documented as of this encounter Results * Hemoglobin A1c (08/09/2025 10:53 AM EDT) Pathologist [facility] Hemoglobin A1C 5.2 <6.5 % LAB CHEMISTRY METHOD 08/09/2025 2:28 PM EDT [facility] Mean Bld Glu Estim. 103 mg/dL LAB CHEMISTRY METHOD 08/09/2025 2:28 PM EDT [facility] Blood Venous blood specimen / Unknown Venipuncture / Unknown 08/09/2025 10:53 AM EDT 08/09/2025 10:53 AM EDT Deangelo Johns INTERNATIONAL TRADE ANALYST LAB BLOOD ORDERABLES Final R esult [facility] [address] [place] [address], * Comprehensive metabolic panel (08/09/2025 10:53 AM EDT) Pathologist [facility] Sodium 140 133 - 145 mmol/L LAB CHEMISTRY METHOD 08/09/2025 4:20 PM EDT [facility] Potassium 4.0 3.5 - 5.5 mmol/L LAB CHEMISTRY METHOD 08/09/2025 4:20 PM EDT [facility] Chloride 104 96 - 110 mmol/L LAB CHEMISTRY METHOD 08/09/2025 4:20 PM EDT [facility] CO2 31 21 - 32 mmol/L LAB CHEMISTRY METHOD 08/09/2025 4:20 PM EDT [facility] Anion Gap 5 3 - 11 LAB CHEMISTRY METHOD 08/09/2025 4:20 PM [facility] Glucose 74 70 - 100 mg/dL LAB CHEMISTRY METHOD 08/09/2025 4:20 PM [facility] BUN 8 5 - 25 mg/dL LAB CHEMISTRY METHOD 08/09/2025 4:20 PM [facility] Creatinine 0.56 0.50 - 1.10 mg/dL LAB CHEMISTRY METHOD 08/09/2025 4:20 PM [facility] eGFR 102 >=60 mL/min/1. 73m2 LAB CHEMISTRY METHOD 08/09/2025 4:20 PM [facility] Comment:Calculation based on the Chronic Kidney Disease Epidemiology Collaboration (CKD-EPI) equation refit without adjustment for race. BUN/Creatinine Ratio 14.3 LAB CHEMISTRY METHOD 08/09/2025 4:20 PM [facility] Calcium 9.4 8.5 - 10.5 mg/dL LAB CHEMISTRY METHOD 08/09/2025 4:20 PM [facility] AST (SGOT) 16 10 - 42 unit/L LAB CHEMISTRY METHOD 08/09/2025 4:20 PM [facility] ALT (SGPT) 12 10 - 60 unit/L LAB CHEMISTRY METHOD 08/09/2025 4:20 PM [facility] Alkaline Phosphatase 74 42 - 121 unit/L LAB CHEMISTRY METHOD 08/09/2025 4:20 PM [facility] Total Protein 7.0 6.0 - 8.0 g/dL LAB CHEMISTRY METHOD 08/09/2025 4:20 PM [facility] Albumin 3.7 3.2 - 5.0 g/dL LAB CHEMISTRY METHOD 08/09/2025 4:20 PM [facility] Total Bilirubin 0.4 0.0 - 1.4 mg/dL LAB CHEMISTRY METHOD 08/09/2025 4:20 PM EDT [facility] Blood Venous blood specimen / Unknown Venipuncture / Unknown 08/09/2025 10:53 AM EDT 08/09/2025 10:53 AM EDT Deangelo Johns INTERNATIONAL TRADE ANALYST LAB BLOOD ORDERABLES Final R esult [facility] [address] [place] [address], documented in this encounter Visit Diagnoses Diagnosis Chronic obstructive pulmonary disease with acute exacerbation ([facility] V24, [facility] V28)- Primary Obstructive sleep apnea Obstructive sleep apnea (adult) (pediatric) Hypothyroidism, unspecified type Severe obesity due to excess calories with serious comorbidity and body mass index (BMI) 120% of 95th percentile to less than 140% of 95th percentile for age in pediatric p* ([facility] V24, [facility] V28) Mixed hyperlipidemia Gastroesophageal reflux disease, unspecified whether esophagitis present Depression, unspecified depression type Prediabetes Other abnormal glucose Need for prophylactic vaccination and inoculation against influenza documented in this encounter Discontinued Medications Medication Sig Discontinue Reason Start Date End Da te albuterol HFA (PROAIR HFA ; PROVENTIL HFA ; VENTOLIN HFA) 90 mcg/actuation inhalerIndications:Chr onic obstructive pulmonary disease, unspecified COPD type ([facility] V24, [facility] V28) Inhale 2 puffs by mouth every 6 (six) hours if needed for wheezing or shortness of breath. Duplicate order 05/02/2025 08/09/2025 fluticasone-umeclidini um-vilanterol (Trelegy Ellipta) 100-62.5-25 mcg inhaler Inhale 1 puff (100 mcg total) by mouth 1 (one) time each day. Prescribed in Pulmonology Duplicate order 06/20/2024 08/09/2025 levothyroxine (SYNTHROID, LEVOTHROID) 137 mcg tabletIndications:Venita re obesity due to excess calories with serious comorbidity and body mass index (BMI) 120% of 95th percentile to less than 140% of 95th percentile for age in pediatric p* ([facility] V24, [facility] V28),Prediabetes Take 1 tablet (137 mcg total) by mouth 1 (one) time each day before breakfast. Reorder 03/30/2025 08/09/2025 documented as of this encounter Additional Health Concerns Assessment Noted Time PHQ-9 Depression Total Score: 0 08/09/20 25 10:00 AM EDT documented as of this encounter Care Teams After School Driver Relationship Specialty Start Date End Date Keyona Mills MD [address] [place] [address] PCP - General Internal Medicine 08/10/20 documented as of this encounter
--- NOTE | ~2025-08-14 | MR_ITS ---
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 L1-2: Grade 1 retrolisthesis of L1 over L2. L2-3: Grade 1 retrolisthesis of L2 over L3. Minimal broad-based disc bulge with minimal central canal stenosis and mild bilateral neural foraminal stenosis. L3-4: Grade 1 retrolisthesis of the L3 over L4. Broad-based disc bulge and facet arthropathy with mild central canal stenosis moderate left and cvzp-ri-xnhxynqj right neural foraminal stenosis with impingement of the exiting left L3 nerve root. L4-5: Broad-based disc bulge and facet arthropathy with impingement of the L5 nerve roots with mild central canal stenosis, moderate right and zhcc-sh-wxfidzdv left neural foraminal stenosis with impingement of the exiting L4 nerve roots. L5-S1: Grade 1 anterolisthesis of L5 over S1. Broad-based disc bulge and facet arthropathy impinging of the S1 nerve roots with no significant central canal stenosis and moderate to severe left and moderate right neural foraminal stenosis with impingement of the exiting L5 nerve roots. No acute fracture or pathologic bone lesion. Cauda equina and conus medullaris within normal limits. Paraspinous musculature intact. The filum terminale at L1-2. IMPRESSION: 1. L5-S1 grade 1 anterolisthesis with moderate to severe left and moderate right neural foraminal stenosis, impinging on exiting L5 nerve roots. 2. T12-L1 central disc extrusion with ventral cord impingement and clab-yx-vxtoyuem central canal stenosis. 3. L4-5 moderate right and nzye-pi-xdtgnqtw left neural foraminal stenosis with L4 nerve root impingement bilaterally. 4. L3-4 moderate left and ucat-wv-tyqcfbdh right neural foraminal stenosis with left L3 nerve root impingement. This document has been electronically signed by: Thor Mosher MD on 08/14/2025 20:15:16
--- OUTSIDE RECORDS SUMMARY | 2025-08-14 18:54 | XMS_ITS | Clinical Summary ---
Author Organization [facility] Address [address] [place] [address] Care Team Providers Care Public Health Program Manager Name Role Phone Unavailable Primary Care Provider [...]
--- OUTSIDE RECORDS SUMMARY | 2025-08-14 18:54 | XMS_ITS | Clinical Summary ---
Author Organization 175 [facility] Address [address] [place] [address] Phone Care Team Providers Care Cribbing Setter Name Role Phone Keyona Mills MD Primary Care Provider [phone] Allergies Active Allergy Reactions Criticality Noted Date Comments Cephradine Hives 08/18/2007 Egg 08/18/2007 Iodinated Contrast Media Hives 08/18/2007 Iodine Hives 06/13/2021 Nut - Unspecified Other 10/06/2007 PEANUTS AND CASHEWS OKAY Prochlorperazine Other 08/18/2007 Seizure Medications acetaminophen/ diphenhydramin e (TYLENOL PM EXTRA STRENGTH ORAL) Take by mouth 3 (three) times a day if needed (Pain). OTC Active cholecalcifero l (VITAMIN D-3) 25 mcg (1,000 unit) tablet OTC 04/05/20 19 Active fluticasone propionate (FLONASE) 50 mcg/actuation nasal spray 2 Sprays by Nasal route daily. 06/16/20 24 Active gabapentin (NEURONTIN) 300 mg capsule Take 1 capsule (300 mg total) by mouth 3 (three) times a day. Prescribed by Jeremy Delgadillo 08/23/20 24 Active ipratropium-al buteroL (DUONEB) 0.5-2.5 mg/3 mL nebulizer solution Take 3 mL by nebulization if needed for shortness of breath or wheezing. Prescribed in Pulmonology 06/16/20 24 Active albuterol 2.5 mg /3 mL (0.083 %) nebulizer solutionIndica tions:Chronic obstructive pulmonary disease, unspecified COPD type ([facility] V24, [facility] V28) Take 3 mL (2.5 mg total) by nebulization every 6 (six) hours if needed for wheezing. 360 mL 11 11/01/20 24 2024 Active albuterol HFA (PROAIR HFA ; PROVENTIL HFA ; VENTOLIN HFA) 90 mcg/actuation inhaler Inhale 2 puffs by mouth every 4 (four) hours if needed for wheezing. 6.7 g 1 12/07/19 25 Active sertraline (ZOLOFT) 100 mg tabletIndicati ons:Severe obesity due to excess calories with serious comorbidity and body mass index (BMI) 120% of 95th percentile to less than 140% of 95th percentile for age in pediatric p* ([facility] V24, [facility] V28),Prediabet es Take 2 Tablets by mouth daily. 180 each 1 03/30/20 25 Active fluticasone-um eclidinium-niles anterol (Trelegy Ellipta) 100-62.5-25 mcg inhalerIndicat ions:Chronic obstructive pulmonary disease, unspecified COPD type ([facility] V24, [facility] V28) Inhale 1 puff (100 mcg total) by mouth 1 (one) time each day. Rinse mouth with water after use to reduce aftertaste and incidence of candidiasis. Do not swallow. 3 each 3 05/02/20 25 2025 Active amitriptyline (ELAVIL) 75 mg tablet Take 1 tablet (75 mg total) by mouth at bedtime. at bedtime. 90 tablet 1 06/16/20 25 Active simvastatin (ZOCOR) 40 mg tablet Take 1 tablet (40 mg total) by mouth at bedtime. 90 each 06/16/20 25 Active baclofen (LIORESAL) 10 mg tablet Take 1 tablet (10 mg total) by mouth 3 (three) times a day. 270 tablet 1 06/16/20 25 Active pantoprazole (PROTONIX) 40 mg EC tablet Take 1 tablet (40 mg total) by mouth 1 (one) time each day. Do not crush, chew, or split 90 each 1 07/26/20 Active levothyroxine (SYNTHROID, LEVOTHROID) 137 mcg tabletIndicati ons:Severe obesity due to excess calories with serious comorbidity and body mass index (BMI) 120% of 95th percentile to less than 140% of 95th percentile for age in pediatric p* (CMS/HCC V24, CMS/HCC V28),Prediabet es Take 1 tablet (137 mcg total) by mouth 1 (one) time each day before breakfast. 90 tablet 1 08/09/20 25 2025 Active fluticasone-um eclidinium-niles anterol (Trelegy Ellipta) 100-62.5-25 mcg inhaler Inhale 1 puff (100 mcg total) by mouth 1 (one) time each day. Prescribed in Pulmonology 06/20/20 24 2024 Discontinued(D uplicate order) levothyroxine (SYNTHROID, LEVOTHROID) 137 mcg tabletIndicati ons:Severe obesity due to excess calories with serious comorbidity and body mass index (BMI) 120% of 95th percentile to less than 140% of 95th percentile for age in pediatric p* (CMS/HCC V24, CMS/HCC V28),Prediabet es Take 1 tablet (137 mcg total) by mouth 1 (one) time each day before breakfast. 90 tablet 1 03/30/20 25 2024 Discontinued(R eorder) pantoprazole (PROTONIX) 40 mg EC tablet Take 1 tablet (40 mg total) by mouth 1 (one) time each day. Do not crush, chew, or split Please schedule medication follow up to continue future refills 90 each 04/20/20 25 2024 Discontinued(R eorder) albuterol HFA (PROAIR HFA ; PROVENTIL HFA ; VENTOLIN HFA) 90 mcg/actuation inhalerIndicat ions:Chronic obstructive pulmonary disease, unspecified COPD type (CMS/HCC V24, [facility] V28) Inhale 2 puffs by mouth every 6 (six) hours if needed for wheezing or shortness of breath. 3 each 3 05/02/20 25 2024 Discontinued(D uplicate order) tirzepatide, weight loss, (Zepbound) 5 mg/0.5 mL injection Inject 0.5 mL (5 mg total) under the skin every 7 (seven) days. 2 mL 06/16/20 25 2024 tirzepatide, weight loss, (Zepbound) 7.5 mg/0.5 mL injection Inject 0.5 mL (7.5 mg total) under the skin every 7 (seven) days for 28 days. 2 mL 07/19/20 25 2024 Discontinued Active Problems Problem Noted Date Diagnosed Date [...] 2019 DDD (degenerative disc disease), lumbar 08/15/20 Thoracic spondylosis 08/15/2020 Vitamin D deficiency 04/05/2019 Pulmonary nodules 10/28/2018 Overview (09/28/2024): Last Assessment & Plan: Continue following the lung cancer screening program Obstructive sleep apnea 10/12/2018 Overview (09/28/2024): [facility] Home Polysomnogram: Date 10/06/2018; AHI 13, Unclassified [...] 11/02/2013 COPD (chronic obstructive pu lmonary disease) ([facility] V24, [facility] V28) 10/31/2013 Overview (09/28/2024): emphysema by low [...] of bone and cartilage 08/18/2007 Overview (09/28/2024): MARTINO update Endometriosis 08/18/2007 Overview (09/28/2024): hysterectomy 1995, Dr. Angelica HUANG update Fibromyalgia 08/18/2007 Overview (09/28/2024): IMO update Esophageal reflux 08/18/2007 Hypothyroidism 08/18/2007 Overview (09/28/2024): onset 1999 Mixed hyperlipidemia 08/18/2007 Encounters Date Type Department Care Team Description 08/09/2025 10:00 AM EDT Office Visit Adult Medicine [address] [phone] Deangelo Johns, MEDICAL ARTIST Chronic obstructive pulmonary disease with acute exacerbation ([facility] V24, [facility] V28) (Primary Dx); Obstructive sleep apnea; Hypothyroidism, unspecified type; Severe obesity due to excess calories with serious comorbidity and body mass index (BMI) 120% of 95th percentile to less than 140% of 95th percentile for age in pediatric p* ([facility] V24, [facility] V28); Mixed hyperlipidemia; Gastroesophageal reflux disease, unspecified whether esophagitis present; Depression, unspecified depression type; Prediabetes; Need for prophylactic vaccination and inoculation against influenza 07/07/2025 Telephone Adult Medicine [facility] [address] [place] [address] Keyona Mills MD 05/18/2025 9:30 AM EDT Consult Bariatric Surgery - [address] [place] [address] Nika Mcdermott PA Mixed hyperlipidemia (Primary Dx); Severe obesity (BMI 35.0-35.9 with comorbidity) ([facility] V24, [facility] V28); Obstructive sleep apnea from Last 3 Months Immunizations Immunization Administration Dates Next Due Pneumococcal conjugate 20 va lent (Prevnar 20, PCV 20) 2mo and older 03/27/2023 Td Tetanus diptheria (Tdvax) 7yo and older 05/09 Tdap Tetanus diptheria acell ular pertussis (Boostrix; Adacel) 7yo and older 06/17/2023 Surgical History Surgery Date Site/Laterality Comments TONSILLECTOMY PROCEDURE: HISTORICAL TONSILLECTOMY BUNIONECTOMY PROCEDURE: MN CORRJ HLX VLGS BNCTY SESMDC W/DOUBLE OSTEOTOMY HYSTERECTOMY PROCEDURE: HISTORICAL HYSTERECTOMY; COMMENT: endometriosis COLONOSCOPY 2004 PROCEDURE: MN COLONOSCOPY STOMA DX INCLUDING COLLJ SPEC SPX; COMMENT: Up to cecum, well prepared. by Dr. Perez COLONOSCOPY 07/25/08 PROCEDURE: MN COLONOSCOPY STOMA DX INCLUDING COLLJ SPEC SPX; [...] DX:Endometriosis, site unspecified; COMMENT: hysterectomy 1995, Dr. Angelica Cortes 08/18/2007 DX:Bunion; COMME NT: bunionectomy 1993 Disorder [...] Record ed Within the last 3 months, seth neumann many times did you visit the emergency [...] care for your loved ones. For example, attendant child activity or elderly care for an older adult? [...] F) 08/09/2025 9:59 AM EDT Respiratory Rate 20 05/09/2025 8:38 AM EDT Oxygen Saturation 94% 08/09/2025 9:59 AM EDT Inhaled Oxygen Concentration - - Weight 78.9 kg (174 lb) 08/09/2025 9:59 AM EDT Height 152.4 cm (5') 08/09/2025 9:59 AM EDT Body Mass Index 33.98 08/09/2025 9:59 AM EDT Plan of Treatment Upcoming Encounters Date Type Department Care Team (Late st Contact Info) Description 09/19/2025 11:00 AM EST Office Visit Bariatric Surgery - [place] 175 [facility] [address] [place] [phone] Nika Mcdermott PA [address] [place] [phone] 11/01/2025 2:00 PM EST Ancillary Procedure Pulmonology - [place] 175 [facility] [address] [place] [phone] 11/01/2025 2:45 PM EST Office Visit Pulmonology - [place] 175 [facility] [address] [place] [phone] Payal Yoon MD 175 [facility] [address] [place] [address] 11/08/2025 2:30 PM EST Office Visit Adult Medicine [facility] [address] [place] [phone] Keyona Mills MD [address] [place] [phone] Health Maintenance Due Date Last Done Comments Cervical Cancer Screening: Pap Smear 1981 Zoster Vaccines (1 of 2) 2010 RSV Immunization Adult Patients (1 - Risk 60-74 years 1-dose series) 2020 HIV Screening 10/25/2022 Colorectal Cancer Screening: Colonoscopy 08/19/2023 08/19/2018 Influenza Vaccine (#1) 2025 Lung Cancer Screening (Low Dose CT) 09/06/2025 09/06/2024, 09/07/2023, 09/02/2022, Additional history exists Social Influencers of Health Screening 03/30/2026 03/30/2025 Breast Cancer Screening 06/23/2026 06/23/2024 Cholesterol Screening (Lipid Panel) 03/28/2030 03/28/2025, 08/22/2024, 08/22/2024 DTaP,Tdap,and Td Vaccines (4 - Td or Tdap) 06/17/2033 06/17/2023, 05/09/2022, 11/16/2001 Hepatitis C Screening Completed 02/16/2014 COVID-19 Vaccine Discontinued 12/24/2021, , 04/12/2021 Pneumococcal Vaccine: 50+ Years Completed 03/27/2023 Depression Screening Completed 08/09/2025 HIB Vaccines Aged Out No longer eligi [...] Procedure Name Priority Date/Time Associated Diagnosis Comments CBC WITH AUTO DIFFERENTIAL Routine 08/09/2025 10:53 AM EDT Severe obesity due to excess calories with serious comorbidity and body mass index (BMI) 120% of 95th percentile to less than 140% of 95th percentile for age in pediatric p* ([facility] V24, [facility] V28) Prediabetes Chronic obstructive pulmonary disease with acute exacerbation ([facility] V24, [facility] V28) Obstructive sleep apnea Hypothyroidism, unspecified type Mixed hyperlipidemia Need for prophylactic vaccination and inoculation against influenza COMPREHENSIVE METABOLIC PANEL Routine 08/09/2025 10:53 AM EDT Severe obesity due to excess calories with serious comorbidity and body mass index (BMI) 120% of 95th percentile to less than 140% of 95th percentile for age in pediatric p* ([facility] V24, [facility] V28) Prediabetes Chronic obstructive pulmonary disease with acute exacerbation ([facility] V24, CMS/HCC V28) Obstructive sleep apnea Hypothyroidism, unspecified type Mixed hyperlipidemia Need for prophylactic vaccination and inoculation against influenza HEMOGLOBIN A1C Routine 08/09/2025 10:53 AM EDT Severe obesity due to excess calories with serious comorbidity and body mass index (BMI) 120% of 95th percentile to less than 140% of 95th percentile for age in pediatric p* (CMS/HCC V24, CMS/HCC V28) Prediabetes Chronic obstructive pulmonary disease with acute exacerbation (CMS/HCC V24, CMS/HCC V28) Obstructive sleep apnea Hypothyroidism, unspecified type Mixed hyperlipidemia Need for prophylactic vaccination and inoculation against influenza CBC AND DIFFERENTIAL Routine 08/09/2025 10:53 AM EDT Severe obesity due to excess calories with serious comorbidity and body mass index (BMI) 120% of 95th percentile to less than 140% of 95th percentile for age in pediatric p* (CMS/HCC V24, CMS/HCC V28) Prediabetes Chronic obstructive pulmonary disease with acute exacerbation (CMS/HCC V24, CMS/HCC V28) Obstructive sleep apnea Hypothyroidism, unspecified type Mixed hyperlipidemia Need for prophylactic vaccination and inoculation against influenza LIPID PANEL WITH REFLEX TO DIRECT LDL [...] Relevant to Health Maintenance Results * (ABNORMAL) CBC auto differential (08/09/2025 10:53 AM EDT) [facility] WBC 13.6(H) 4.8 - 10.8 K/[facility] LAB HEMETOLOGY METHOD 08/09/2025 2:07 PM EDT [facility] RBC 4.60 3.80 - 4.80 M/mcL LAB HEMETOLOGY METHOD 08/09/2025 2:07 PM [facility] Hemoglobin 14.9 11.5 - 16.0 g/dL LAB HEMETOLOGY METHOD 08/09/2025 2:07 PM [facility] Hematocrit 44.6 35.0 - 47.0 % LAB HEMETOLOGY METHOD 08/09/2025 2:07 PM [facility] MCV 96.7 79.0 - 98.0 FL LAB HEMETOLOGY METHOD 08/09/2025 2:07 PM [facility] MCH 32.3(H) 27.0 - 32.0 pcg LAB HEMETOLOGY METHOD 08/09/2025 2:07 PM [facility] MCHC 33.4 32.0 - 37.0 g/dL LAB HEMETOLOGY METHOD 08/09/2025 2:07 PM [facility] RDW 13.7 11.0 - 15.0 % LAB HEMETOLOGY METHOD 08/09/2025 2:07 PM [facility] Platelets 348 130 - 400 K/mcL LAB HEMETOLOGY METHOD 08/09/2025 2:07 PM [facility] MPV 9.7 7.0 - 11.0 FL LAB HEMETOLOGY METHOD 08/09/2025 2:07 PM [facility] NRBC 0.0 <1.0 % LAB HEMETOLOGY METHOD 08/09/2025 2:07 PM [facility] NRBC Absolute 0.00 <0.10 K/mcL LAB HEMETOLOGY METHOD 08/09/2025 2:07 PM [facility] Neutrophils Relative 57.2 % LAB HEMETOLOGY METHOD 08/09/2025 2:07 PM [facility] Lymphocytes Relative 34.8 % LAB HEMETOLOGY METHOD 08/09/2025 2:07 PM [facility] Monocytes Relative 5.4 % LAB HEMETOLOGY METHOD 08/09/2025 2:07 PM [facility] Eosinophils Relative 1.5 % LAB HEMETOLOGY METHOD 08/09/2025 2:07 PM [facility] Basophils Relative 0.7 % LAB HEMETOLOGY METHOD 08/09/2025 2:07 PM [facility] Immature Granulocytes Relative 0.4 % LAB HEMETOLOGY METHOD 08/09/2025 2:07 PM [facility] Neutrophils Absolute 7.76(H) 1.50 - 7.00 K/mcL LAB HEMETOLOGY METHOD 08/09/2025 2:07 PM [facility] Lymphocytes Absolute 4.73 1.00 - 5.00 K/mcL LAB HEMETOLOGY METHOD 08/09/2025 2:07 PM [facility] Monocytes Absolute 0.73 0.20 - 1.00 K/mcL LAB HEMETOLOGY METHOD 08/09/2025 2:07 PM [facility] Eosinophils Absolute 0.21 0.00 - 0.50 K/mcL LAB HEMETOLOGY METHOD 08/09/2025 2:07 PM [facility] Basophils Absolute 0.10 0.00 - 0.20 K/mcL LAB HEMETOLOGY METHOD 08/09/2025 2:07 PM [facility] Immature Granulocytes Absolute 0.06(H) 0.00 - 0.03 K/mcL LAB HEMETOLOGY METHOD 08/09/2025 2:07 PM [facility] Blood Venous blood specimen / Unknown Venipuncture / Unknown 08/09/2025 10:53 AM EDT 08/09/2025 10:53 AM EDT Deangelo Johns MEDICAL ARTIST LAB BLOOD ORDERABLES Final R esult [facility] [address] [place] [address], [place] [phone] * Hemoglobin A1c (08/09/2025 10:53 AM EDT) [facility] Hemoglobin A1C 5.2 <6.5 % LAB CHEMISTRY METHOD 08/09/2025 2:28 PM EDT [facility] Mean Bld Glu Estim. 103 mg/dL LAB CHEMISTRY METHOD 08/09/2025 2:28 PM EDT [facility] Blood Venous blood specimen / Unknown Venipuncture / Unknown 08/09/2025 10:53 AM EDT 08/09/2025 10:53 AM EDT Deangelo Johns MEDICAL ARTIST LAB BLOOD ORDERABLES Final R esult [facility] [address] [place] [address], [place] [phone] * Comprehensive metabolic panel (08/09/2025 10:53 AM EDT) [facility] Sodium 140 133 - 145 mmol/L LAB CHEMISTRY METHOD 08/09/2025 4:20 PM T [facility] Potassium 4.0 3.5 - 5.5 mmol/L LAB CHEMISTRY METHOD 08/09/2025 4:20 PM T [facility] Chloride 104 96 - 110 mmol/L LAB CHEMISTRY METHOD 08/09/2025 4:20 PM T [facility] CO2 31 21 - 32 mmol/L LAB CHEMISTRY METHOD 08/09/2025 4:20 PM T [facility] Anion Gap 5 3 - 11 LAB CHEMISTRY METHOD 08/09/2025 4:20 PM T [facility] Glucose 74 70 - 100 mg/dL LAB CHEMISTRY METHOD 08/09/2025 4:20 PM [facility] BUN 8 5 - 25 mg/dL LAB CHEMISTRY METHOD 08/09/2025 4:20 PM [facility] Creatinine 0.56 0.50 - 1.10 mg/dL LAB CHEMISTRY METHOD 08/09/2025 4:20 PM [facility] eGFR 102 >=60 mL/min/1. 73m2 LAB CHEMISTRY METHOD 08/09/2025 4:20 PM [facility] Comment:Calculation based on the Chronic Kidney Disease Epidemiology Collaboration (CKD-EPI) equation refit without adjustment for race. BUN/Creatinine Ratio 14.3 LAB CHEMISTRY METHOD 08/09/2025 4:20 PM [facility] Calcium 9.4 8.5 - 10.5 mg/dL LAB CHEMISTRY METHOD 08/09/2025 4:20 PM [facility] AST (SGOT) 16 10 - 42 unit/L LAB CHEMISTRY METHOD 08/09/2025 4:20 PM [facility] ALT (SGPT) 12 10 - 60 unit/L LAB CHEMISTRY METHOD 08/09/2025 4:20 PM [facility] Alkaline Phosphatase 74 42 - 121 unit/L LAB CHEMISTRY METHOD 08/09/2025 4:20 PM [facility] Total Protein 7.0 6.0 - 8.0 g/dL LAB CHEMISTRY METHOD 08/09/2025 4:20 PM [facility] Albumin 3.7 3.2 - 5.0 g/dL LAB CHEMISTRY METHOD 08/09/2025 4:20 PM [facility] Total Bilirubin 0.4 0.0 - 1.4 mg/dL LAB CHEMISTRY METHOD 08/09/2025 4:20 PM [facility] Blood Venous blood specimen / Unknown Venipuncture / Unknown 08/09/2025 10:53 AM EDT 08/09/2025 10:53 AM EDT Deangelo Johns MEDICAL ARTIST LAB BLOOD ORDERABLES Final R esult [facility] [address] [place] [address], [place] [phone] * (ABNORMAL) Lipid panel with reflex to direct LDL (03/28/2025 1:49 PM EDT) Cholesterol 179 0 - 200 mg/dL LAB CHEMISTRY METHOD 03/28/2025 4:33 PM EDT [facility] Triglycerides 95 0 - 150 mg/dL LAB CHEMISTRY METHOD 03/28/2025 4:33 PM EDT [facility] HDL 57 >=40 mg/dL LAB CHEMISTRY METHOD 03/28/2025 4:33 PM EDT [facility] LDL Calculated 103(H) 0 - 100 mg/dL LAB CHEMISTRY METHOD 03/28/2025 4:33 PM EDT [facility] VLDL Cholesterol Iglesia 19 mg/dL LAB CHEMISTRY METHOD 03/28/2025 4:33 PM EDT [facility] Non HDL Chol. (LDL+VLDL) 122 <145 mg/dL LAB CHEMISTRY METHOD 03/28/2025 4:33 PM EDT [facility] Chol/HDL Ratio 3.1 0.0 - 4.4 LAB CHEMISTRY METHOD 03/28/2025 4:33 PM EDT [facility] Blood Venous blood specimen / Unknown Venipuncture / Unknown 03/28/2025 1:49 PM EDT 03/28/2025 1:49 PM EDT Jeremy SIMMONS LAB BLOOD ORDERABLES Fin al Result [facility] [address] [place] [address], [place] [phone] * CT LUNG SCREENING LOW DOSE (09/06/2024 3:01 PM EDT) Anatomical Region Laterality Modality Computed Tomogra phy 09/06/2024 1:34 PM EDT Narrative 09/06/2024 3:01 PM EDT [facility] Diagnostic Imaging Department [address] [place] [id number] Patient: LIZETH LOPES Porfirio /Age/Sex: 1960 - 64 - F Unit#: [id number] Location/Status: SPDICATLS/REG CLI Mnemonic/Ordering Site: [facility] Ordering Physician: MICHAEL SMITH MD CT Lung [...] Procedure Note Gilbert Jenkins MD - 09/13/2024 [facility] Diagnostic Imaging Department [address] [place] [address] Patient: ARACELI LOPESLUZMARIA Monroy D.O.B./Age/Sex: 1960 - 64 - F Unit#: [id number] Location/Status: [facility] Mnemonic/Ordering Site: [facility] Ordering Physician: MICHAEL SMITH MD CT [...] Sign date/Time: 09/06/24 1501 Michael Smith MD IMG CT PROCEDURES Final Result * Colonoscopy (08/19/2018) Colonoscopy No Interpretation , Abstracted Anatomical Region Laterality Modality Other Historical [facility] Final Result * Hepatitis C Screening (02/16/2014) Hepatitis C Screening Abstracted Historical [facility] Final Result from Last 3 Months or Most Recently Relevant to Health Maintenance Insurance [employer] Care Teams Cribbing Setter Relationship Specialty Start Date End Date Keyona Mills MD [address] [place] [phone] PCP - General Internal Medicine 08/10/20
--- OUTSIDE RECORDS SUMMARY | 2025-08-14 18:54 | XMS_ITS | Encounter Summary ---
Author Organization [facility] Address [address] [place] [address] Care Team Providers Care Care Consultant Name Role Phone Keyona Mills MD Primary Care Provider [phone] Reason for Visit * Reason Onset Date Comments COPD 10/25/2024 Encounter Details Date Type Department Care Team (Late st Contact Info) Description 10/25/2024 Nurse Triage Adult Medicine [facility] [address] [place] [phone] Keyona Mills MD [address] [place] [address] Social History Tobacco Use Types Packs/Day Years [...] exposures) No Protocols used: Cough - Acute Wiosomvqvo-A-MB * Bill Marshall - 10/25/2024 9:04 AM [...] traveled recently to another state outside of [place], [place], [place], [place], [place], [place]? no o If yes, did you quarantine [...] of accident/Injury: No If yes, gather 3rd alliance party insurance information Third Green Party Information: not applicable PCP: Keyona Mills MD Payor: [place] [employer] / Plan: [place] [employer] / Product Type: *No Product type* / documented in this encounter Plan of Treatment Upcoming Encounters Date Type Department Care Team ([facility] st Contact Info) Description 09/19/2025 11:00 AM EST Office Visit Bariatric Surgery - [address] [phone] Nika Mcdermott PA [address] [place] [address] 11/01/2025 2:00 PM EST Ancillary Procedure Pulmonology - [address] [phone] 11/01/2025 2:45 PM EST Office Visit Pulmonology - [address] [phone] Payal Yoon MD [address] [address] 11/08/2025 2:30 PM EST Office Visit Adult Medicine [address] [phone] Keyona Mills MD [address] [place] [address] documented as of this encounter Visit Diagnoses Not on filedocumented in this encounter Care Teams Care Consultant Relationship Specialty Start Date End Date Keyona Mills MD [address] [place] [address] PCP - General Internal Medicine 08/10/20 documented as of this encounter
--- OUTSIDE RECORDS SUMMARY | 2025-08-14 18:55 | XMS_ITS | Patient Health Record ---
Author Organization [facility] Address [address] [place] [address] Care Team Providers Care Captain Waiter/Waitress Name Role Phone Lina PLEITEZ, Keyona Reynoso Primary Care Provider Unav ailable Gregoria Doss Unavailable [phone] Allergies Allergen (clinical drug ingredient) Drug/Non Drug Allergy documented on EMR Reaction Allergy Type Onset Date Status Velocef (uncoded) convulsions Allergy Active Iodine hives Drug Allergy Active Compazine Unknown Drug Allergy Active Reason For Referral Diagnosis 1 Plantar wart (B07.0) Diagnosis 2 Other viral warts (B 07.8) Diagnosis 3 Tinea unguium (B35.1 ) Diagnosis 4 Pain in right foot ( M79.671) Diagnosis 5 Pain in left foot (M 79.672) Diagnosis 6 Pain in right toe(s) (M79.674) Diagnosis 7 Pain in left toe(s) (M79.675) Diagnosis 8 Pain in Limb (729.5) Referring Provider First Name [facility] ([place], [place]) Referring Provider Last Name [facility] Provider Gregoria Doss Referred Address [address] [facility],[place], [place],[address], Referred Provider Specialty Podiatry Referral Priority Routine Medications Medication SIG (Take, Route, Frequency, Duration) Notes Start Date End Date Status Zoloft Active Cyclobenzaprine Comfort Pac Not-Taking Gabapentin 300mg three times a day orally daily Active Gynodiol Not-Taking Simvastatin Active Symbicort Not-Taking Tylenol Active Meclizine HCl 25 MG TAKE 1 TABLET BY 3 TIMES A DAY NEEDED FOR DIZZINESS Oral; Duration: 15 Not-Taking Baclofen Active ProAir HFA Active Keflex 500 500 MG 1 capsule Orally cinda ry 12 hrs; Duration: 10 day(s) 06/27/2014 Not-Taking Trelegy Ellipta 100-62.5-25 MCG/ACT 1 puff Inhalation Once a day Active Anoro Ellipta Not-Ta demarco Ciclopirox Olamine 0.77 % 1 application to affected area Externally to feet Twice a day; Duration: 30 days Active clonazePAM Not-Takin g Amitriptyline HCl Ac tive Acetaminophen-Codeine 300-30 MG 1 tablet as needed Orally every 6 hrs; Duration: as needed 06/27/2014 Not-Taking Calcium Active Lamisil 250 Not-Taki ng Multivitamins Active Immunizations Vaccine Route Administration Date Status Comme nts Influenza Unknown 09/07/2024 Administered COVID-19 Pfizer BioNTech Vaccine Unknown 05/03/2021 Administered 1st dose: 04/12 Social History Tobacco Use: Social History Observation Description Date Details (start date - stop date) Current Smoker NA - NA Tobacco use other than smoking: Question Answer Notes Are you an other tobacco user? No Tobacco Control (Standard) Question Answer Notes Tobacco use: Current smoker How often do you smoke cigarettes? Every day How many cigarettes a day do you smoke? 11-20 How soon after you wake up do you smoke your fir st cigarette? 6-30 minutes Are you interested in quitting? Not ready to sathya t AUDIT-C (Standard) Question Answer Notes Did you have a drink contain ing alcohol in the past year? Yes How often did you have a dri nk containing alcohol in the past year? Monthly or less (1 point) How many drinks did you have on a typical day when you were drinking in the past year? 1 or 2 drinks (0 point) How often did you have six o r more drinks on one occasion in the past year? Less than monthly (1 point) Points 2 Interpretation Negative Problems Problem Type SNOMED Code ICD Code Onset Dates Problem Status W/U Status Risk Notes Problem Plantar wart (75139012) Plantar wart (B07.0) Active confirmed Vital Signs Blood pressure diastolic 75 mm Hg 04/25/2025 Height 5ft 1in in 04/25/2025 Blood pressure systolic 118 mm Hg 04/25/2025 Weight 175 lbs 04/25/2025 BMI 33.06 kg/m2 04/25/2025 Procedures Procedure Date Ordered Date Performed Result Body Sit e 61386-BHFWQMF NAIL, 6 OR MORE 09/14/2024 N/A 94638-Qrmb Destruction, 1-14 09/14/2024 N/A 47065-Vewubxgd Plate 09/14/2024 N/A 43585-MSCBWVL NAIL, 6 OR MORE 04/25/2025 N/A 54432-Pqjf Destruction, 1-14 04/25/2025 N/A Encounters Encounter Location Date Provider Diagnosis [address] [address] 09/14/2024 Gregoria Black Ingrown nail L60.0 ; Onychomycosis B35.1 ; Pain in right toe(s) M79.674 ; Pain in left toe(s) M79.675 ; Right foot pain M79.671 and Plantar wart B07.[address] [address] 04/25/2025 Gregoria Black Onychomycosis B35.1 ; Pain in right toe(s) M79.674 ; Pain in left toe(s) M79.675 ; Right foot pain M79.671 and Plantar wart B07.[address] [address] 09/09/2024 Gregoria Doss [facility] [address] [place] [address] 09/12/2024 Gregoria Black Assessments Encounter Date Diagnosis (ICD Code) Assessment Notes Treatment Notes Treatment Clinical Notes Section Notes 09/14/2024 Ingrown nail (ICD-10 - L60.0) 04/25/2025 Onychomycosis (ICD-10 - B35.1) 04/25/2025 Pain in right toe(s) (ICD-10 - M79.674) 09/14/2024 Onychomycosis (ICD-10 - B35.1) 09/14/2024 Pain in right toe(s) (ICD-10 - M79.674) 04/25/2025 Pain in left toe(s) (ICD-10 - M79.675) 04/25/2025 Right foot pain (ICD-10 - M79.671) 09/14/2024 Pain in left toe(s) (ICD-10 - M79.675) 09/14/2024 Right foot pain (ICD-10 - M79.671) 04/25/2025 Plantar wart (ICD-10 - B07.0) 09/14/2024 Plantar wart (ICD-10 - B07.0) Plan Of Treatment Pending Test Test Name Order Date *Liver Function Test (LFT) 04/29/2012 48643-ZOZCWYE NAIL, 6 OR MORE 07/05/2012 67306-FELGKMS NAIL, 6 OR MORE 12/01/2013 71528-JOFWGMS NAIL, 6 OR MORE 01/26/2012 41454-HCYCCZP NAIL, 6 OR MORE 04/29/2012 32984-QAGAXPZ NAIL, 6 OR MORE 06/27/2014 60442-KYNONMV NAIL, 6 OR MORE 09/06/2015 60032-XCYDPWW NAIL, 6 OR MORE 03/10/2016 89041-OPAXPMW NAIL, 6 OR MORE 09/04/2016 39308-XWEVVJW NAIL, 6 OR MORE 07/28/2017 67091-HWSNAIK NAIL, 6 OR MORE 02/11/2018 81654-KOBZJMJ NAIL, 6 OR MORE 08/09/2019 84812-RFACOGE NAIL, 6 OR MORE 03/27/2020 11618-OJSBSKI NAIL, 6 OR MORE 11/22/2018 78362-LOJFGXD NAIL, 6 OR MORE 06/29/2020 64912-SSFQAGG NAIL, 6 OR MORE 10/17/2020 27279-JNBBHNE NAIL, 6 OR MORE 09/17/2021 25466-BSMONOQ NAIL, 6 OR MORE 04/22/2023 16411-TNVFXNF NAIL, 6 OR MORE 10/21/2023 95386-XXXKCGF NAIL, 6 OR MORE 09/14/2024 57684-DRDKAVO NAIL, 6 OR MORE 04/25/2025 62348-Ndrq Destruction, 1-14 09/14/2024 23270-Iseh Destruction, 1-14 04/25/2025 06431-Tpys Destruction, 1-14 10/21/2023 76128-Hqiv Destruction, 1-14 04/22/2023 37024-Invf Destruction, 1-14 08/09/2019 32210-Qwlh Destruction, 1-14 09/17/2021 90069-Gpdh Destruction, 11-2910/17/2020 36089-Agxu Destruction, 11-2903/27/2020 56574-Xnyx Destruction, 11-2906/29/2020 25736-Wmgv Destruction, -14 11/22/2018 46094-Fsvw Destruction, -14 02/11/2018 09482-Nllx Destruction, 11-2909/04/2016 12225-Vdxd Destruction, 11-2907/28/2017 89057-Dwai Destruction, 11-2907/28/2014 50172-Beom Destruction, 11-2903/10/2016 95591-Ztjd Destruction, 11-2909/06/2015 91885-Opje Destruction, 11-2907/13/2014 57680-Lgtu Destruction, 11-2904/29/2012 38712-Qulw Destruction, 11-2909/11/2011 86243-Siwr Destruction, 11-2912/11/2011 20018-Aiei Destruction, 11-2901/26/2012 21176-Nbzt Destruction, 11-2907/31/2011 82230-Fptz Destruction, 11-2910/19/2012 02364-Ezie Destruction, 11-2912/01/2013 53245-Mqud Destruction, 11-2907/05/2012 68349-Wvsgxkrz Plate 07/27/2012 56436-Dpsdptpz Plate 09/04/2016 53960-Ouoqiviy Plate 08/09/2019 11739-Oykrvcls Plate 09/17/2021 30214-Apzuhuvq Plate 09/14/2024 46726-QUB 06/27/2014 92626- Debride <25 sq cm 07/31/2011 81560- Debride <25 sq cm 07/28/2014 23909-CXNKOGK SKIN/TISSUE 07/13/2014 67560- Removal of Foreign Body, Subcut 0 03/10/2016 42279- Biopsy of skin lesion 07/17/2011 20037- Biopsy of Addt'l Lesions 07/17/20 11 Next Appt Details Provider Name:Gregoria Wayne Romario , 10/24/2025 10:00:00 AM, [address] [facility], [place], [address], Insurance Providers Payer Name Payer Address Payer Phone Subscriber Number Group Number Insured Name Patient Relationship to Insured Coverage Start Date Coverage End Date [facility] [address] [place] [address] [id number] Elizabeth Chu Self - patient is the insured Medical (General) History Medical History History ICD Code transfusions thyroid disorder sinus conditions reflux osteoporosis mumps measles joint implants/screws headaches/migraines fibromyalgia chicken pox COPD Surgical History Surgery Date(Month/Year) foot surgery 1993,1994 hysterectomy 1995
== END 2025-08-14 18:52 | disposition home or self-care (01) ==
LOC: HO.MRI 18:51
PROVIDERS: Visit Provider Nurse Practitioner Family
DX: M51.34 Other intervertebral disc degeneration, thoracic region (principal); M47.816 Spondylosis without myelopathy or radiculopathy, lumbar region; M48.04 Spinal stenosis, thoracic region
CPT/HCPCS: 72148

== ENCOUNTER 2025-09-04 12:58 | Outpatient (AMB) | payer OTHER, SELFPAY ==
--- NOTE | 2025-09-04 13:01 | MHC.OFFVIS ---
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 The pain initially affected the right leg but has now progressed to involve both legs, with pain in the front of the thighs and the back of the legs. She also continues to endorse persistent mid back pain with daily activities. The patient reports that the pain is consistent with the findings of the recent MRI, which shows multilevel involvement. The MRI findings indicate lumbar spinal stenosis with moderate to severe stenosis at L5-S1, where there is a first-degree spondylolisthesis. There is also central disc extrusion, 0.8 cm AP x 1 cm transverse extending cephalad 1.9 cm with ventral impingement on the cord resulting in eozg-mz-vhcsaykq central canal stenosis and no significant neural foraminal stenosis. There is also evidence of multilevel disc bulges and facet arthropathy, contributing to the patient's symptoms. The patient has not experienced any falls or instability. She uses cane with ambulation and concern for increased pain during upcoming trip overseas and prolonged plane ride and walking. The patient denies taking any consistent pain medications recently, although she has used ibuprofen in the past. She reports a pain level of 5/10 today and has occasionally been taking Tylenol. Denies any recent cough, cold, infection, fever or any significant changes in medical history since last office visit. - Pain radiates from the back to both legs, initially affecting the right leg and now involving both legs. - Pain is located in the front of the thighs and the back of the legs. - Pain level is reported as 5/10 today. - Pain interferes with daily activities such as walking and bending down. - Analgesia: Current pain level is 5/10; no consistent use of pain medications reported recently. - Activities of Daily Living: Pain limits daily activities such as walking and bending. PRIOR: The patient is a 64-year-old female presenting with chronic pain management concerns. The patient reports a history of spinal issues, including spinal stenosis, lumbar disc degeneration, and lumbar spondylosis, which have been ongoing for several years. She has not undergone any back surgery and denies any specific injury leading to her current condition. The patient received bilateral sacroiliac joint injections with steroids on June 06, which provided complete relief for only two weeks. Previous injections in 2018 at [facility] provided longer-lasting relief. The patient is currently considering alternative pain management options, including a spinal cord stimulator. The patient experiences pain primarily in the lower back and right buttock, with radiation to the right leg. The pain is exacerbated by walking and backward flexion, and she reports weakness more pronounced on the right side. She is currently taking gabapentin, ibuprofen, baclofen, amitriptyline, and Zepbound, with some weight loss noted. Denies any recent cough, cold, infection, fever or any significant changes in medical history since last office visit - Onset: Chronic, with exacerbations over several years - Quality: Sharp and radiating - Location: Lower back, right buttock, and right leg - Exacerbating factors: Walking, backward flexion - Relieving factors: Previous injections provided temporary relief - Interference: Affects walking, daily functioning and activities and sleep - Affect: Pain impacts mood and daily functioning, disrupts sleep and reduces quality of life, causing frustration - Analgesia: Currently using gabapentin, ibuprofen, baclofen, amitriptyline, and Zepbound - Adverse Effects: Nausea noted with Zepbound - Activities of Daily Living: Pain limits walking and causes weakness, particularly on the right side - Aberrant Drug Related Behaviors: No evidence of misuse or overuse of medications Past Procedures: 06/06/25: Bilateral therapeutic sacroiliac joint injections-100% pain relief for 2 weeks PRIOR: The patient is a 64-year-old female presenting with right and left sacroiliac joint pain. She began experiencing a right-sided pain three months ago without any triggering event, shifting from her chronic left sacroiliac joint pain. Described as more acute on the right side, the pain has limited her sitting capacity and interfered with her sleep. The patient has an extensive history of back issues, including arthritis and spinal stenosis identifiable in past MRIs and experiencing persistent thoracic and lumbar discomfort. Notably, the patient's medical record includes vertiginous symptoms linked to the left ear, creating intense dizziness, especially while laying down. She avoids sitting on her right side due to discomfort. Reports potentially smoking-associated risk factor, consuming a daily pack of cigarettes. The patient supports her pain management with ice and Ibuprofen, along with prescribed gabapentin and baclofen for her back condition. - Onset & Timing: Chronic, flared up 3 months ago, with a shift from left to right sacroiliac joint pain after long driving from vacation. - Quality & Character: Pain in the right hip and buttocks, more severe on the right side but also on the left. - Primary Location: Right >Left SI joint area with positive provocative testing. - Radiation: Bilateral buttocks and lateral hips, occasionally to right groin. - Exacerbating Factors: Sitting or sleeping on the right side worsens the pain. Changing positions, prolonged sitting, driving. - Relieving Factors: Ice application provides some relief. - Interference: Impacts sleep and daily functioning. - Affect: Pain impacts patient's sleep and function, has vertigo affecting stability. - Analgesia: Uses ice, Ibuprofen 800 mg, gabapentin, and baclofen (10 mg TID). - Adverse Effects: No specific adverse effects reported. - Activities of Daily Living: Pain affects sleep and daily activities; avoids right-side sitting. - Aberrant Drug Related Behaviors: None reported. PRIOR 07/21/24: Patient presents today for follow up for chronic low back pain with left sided radicular symptoms and discussion of Nevro Lumbar SCS trial. Patient was last seen in our office one year ago by Dr. Bee. Denies any recent trauma, injury or falls. Patient reports low back pain with radiation of pain into left buttock and left lower extremity but not below knee level with associated numbness and tingling. She also has significant left SIJ pain with positive provocative testing and interested to undergo therapeutic injection as initial steps. Patient denies any fever or chills, abdominal groin pain, weakness, foot drop, bladder bowel dysfunction or saddle anesthesia. PRIOR Dr. Bee 07/29/23: Elizabeth is in my office for the follow-up and further management discussion. I explained to her that since she adamantly refused to go for a surgery the only way to treat her pain I can see as spinal cord stimulator and intrathecal drug delivery system pain pump. I am not sure which spinal cord stimulator in her case will be more efficient so I offered her to have a trial with planned switch during the trial for the other machine. I will place [employer] spinal cord stimulator in and then if she is not satisfied with the Scientific stimulation I will switch it to Nevro. If she likes neither pain pump can be tried today. She decided to sleep on it and read the brochures about [employer] SCS Nevro SCS and [employer] I DDD. She will give us a call about her decision. At her initial visit I also considered sacroiliac joint injection on the left to help her pain however this procedure never happened. Next time she is here we need to discuss the reason why she did not come to the sacroiliac joint injection procedure. Prior: on the phone today discussing the results of the MRI. The dictation of the MRI is as below. 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 We discussed the situation at hands. Obviously this is not a new findings. She had in the past. However to help her condition with the neuromodulation I need to have neurosurgical consult which would deny any surgery on her thoracic spine. After that we can offer her Nevro spinal cord stimulator versus intrathecal drug delivery system pain pump trial. I do not think the weakness of bilateral lower extremities she experiences every day will get better from those to procedures however obviously the pain will be much better as a palliative care. Prior: complain on pain in lower back with radiation into the left lower extremity.? She reports that this pain started in 2019 after a walk her hip gave out and she was barely able to complete that walk.? the pain is productive with frequent exacerbations.?? She was subject of MRI which demonstrated significant spinal stenosis with spinal cord compression at T10-T11 area.? Apparently she went for neurosurgical consult in [place] and she was not recommended to have any surgery however she was not got established with continuous follow-up with any neurosurgeon neither in [place] nor locally, I believe she needs to be under observation.? she had multiple sessions of physical therapy chiropractic manipulations massage therapy and 10s unit she reports that the those were not helpful.? She reports that she had some sort of injection performed for her lumbar spine which was working for 1 year alleviating her pain.? I suspect that was steroid injection [facility] Medical History COPD (chronic obstructive pulmonary disease) Tobacco use disorder Depression Obesity Obstructive sleep apnea Pulmonary nodules Vitamin D deficiency DDD (degenerative disc disease) Thoracic spondylosis Review of Systems Const Details: - Musculoskeletal: Reports pain radiating to both legs, initially affecting the right leg, now involving both legs. - Musculoskeletal: Reports pain in the front of the thighs and the back of the legs. - Musculoskeletal: Denies falls or instability. All systems reviewed & are unremarkable except as noted in HPI and below Physical Exam General: Appears afebrile. Moderate distress due to pain. Alert and oriented. Mood and affect appropriate. Follows and participates in conversation appropriately. Respiratory effort is unlabored. No cough. Able to transition from sit to stand unassisted. Ambulates with bilaterally normal heel strike and toe off. General: Yes no CVA tenderness Back/Spine/Pelvis Other: Limited lumbar ROM due to pain. Antalgic gait with limping. Uses cane with ambulation. Mild to moderate midline tenderness to palpation in the mid and lower thoracic and lower lumbar regions. Mild to moderate paraspinal tenderness to palpation in the lumbar spine right>left. Lumbar extension and flexion reproduces moderate to severe pain. Mild right groin pain with I/E hip rotations bilaterally. Mak's, Stinchfield, Pelvic compression, Gaenslen tests positive bilaterally. Valsalva maneuver is negative. Back: no CVA tenderness Cervical Spine: cervical ROM normal, cervical muscular tenderness, No Cervical spine tenderness and No step off deformity Thoracic/Lumbar Spine: thoracic and lumbar spine normal to inspection, No Thoracic/lumbar spine scar(s), Lasegue's sign positive bilateral and diffuse, pain with thoraco-lumbar ROM, paraspinal muscle tenderness, thoraco-lumbar ROM limited, No thoracic spinal tenderness, lumbar spinal tenderness (L4-S1) and straight leg raise positive bilateral at 40 degrees Pelvis: buttock tenderness on the left Sacroiliac joints: bilaterally tender to palpation Extrem General: Yes capillary refill normal, Yes no clubbing, cyanosis or edema and Yes no calf tenderness Results Reviewed Results Reviewed: MR lumbar spine wo con 08/14/25 Findings: T12-L1: Central disc extrusion, 0.8 cm AP x 1 cm transverse extending cephalad 1.9 cm with ventral impingement on the cord resulting in vgxf-uv-yupnndun central canal stenosis and no significant neural foraminal stenosis. L1-2: Grade 1 retrolisthesis of L1 over L2. L2-3: Grade 1 retrolisthesis of L2 over L3. Minimal broad-based disc bulge with minimal central canal stenosis and mild bilateral neural foraminal stenosis. L3-4: Grade 1 retrolisthesis of the L3 over L4. Broad-based disc bulge and facet arthropathy with mild central canal stenosis moderate left and axvg-hk-zbbeosbd right neural foraminal stenosis with impingement of the exiting left L3 nerve root. L4-5: Broad-based disc bulge and facet arthropathy with impingement of the L5 nerve roots with mild central canal stenosis, moderate right and axmt-bf-mjgxjoen left neural foraminal stenosis with impingement of the exiting L4 nerve roots. L5-S1: Grade 1 anterolisthesis of L5 over S1. Broad-based disc bulge and facet arthropathy impinging of the S1 nerve roots with no significant central canal stenosis and moderate to severe left and moderate right neural foraminal stenosis with impingement of the exiting L5 nerve roots. No acute fracture or pathologic bone lesion. Cauda equina and conus medullaris within normal limits. Paraspinous musculature intact. The filum terminale at L1-2. IMPRESSION: 1. L5-S1 grade 1 anterolisthesis with moderate to severe left and moderate right neural foraminal stenosis, impinging on exiting L5 nerve roots. 2. T12-L1 central disc extrusion with ventral cord impingement and fiig-yw-dztjgkho central canal stenosis. 3. L4-5 moderate right and cgtt-ti-fpbuiipm left neural foraminal stenosis with L4 nerve root impingement bilaterally. 4. L3-4 moderate left and qkdh-xz-atnffxgm right neural foraminal stenosis with left L3 nerve root impingement. Assessment & Plan Assessment & Plan (1) Degeneration, intervertebral disc, thoracic: Code(s): M51.34 - Other intervertebral disc degeneration, thoracic region Category: Medical (2) Herniation of thoracolumbar intervertebral disc: Code(s): M51.25 - Other intervertebral disc displacement, thoracolumbar region Category: Medical (3) Disc degeneration, lumbar: Code(s): M51.36 - Other intervertebral disc degeneration, lumbar region Category: Medical (4) Spinal stenosis, thoracic: Code(s): M48.04 - Spinal stenosis, thoracic region Category: Medical (5) Chronic sacroiliac joint pain: Code(s): M53.3 - Sacrococcygeal disorders, not elsewhere classified; G89.29 - Other chronic pain Category: Medical (6) Chronic pain syndrome: Code(s): G89.4 - Chronic pain syndrome Category: Medical (7) Lumbar radiculopathy, chronic: Code(s): M54.16 - Radiculopathy, lumbar region Category: Medical (8) Lumbosacral spondylosis: Code(s): M47.817 - Spondylosis without myelopathy or radiculopathy, lumbosacral region Category: Medical Plan The plan includes considering Bilateral L5-S1 transforaminal epidural steroid injections with local and fluoroscopy to manage the patient's pain, particularly targeting the most bothersome radicular symptoms which limit her mobility and daily functioning. Expectations, risks and benefits were reviewed. Patient is aware she will be contacted to schedule this procedure. We also reviewed treatments to address axial low back pain, using diagnostic lumbar medial branch blocks to assess the potential benefit of peripheral nerve stimulation or RFA procedures for pain relief. The patient is advised to follow up with [facility] to follow up on T12-L1 central disc extrusion with ventral cord impingement and moderate central canal stenosis. All questions and concerns have been answered and patient agreed with the treatment plan. Follow up after injections and sooner as needed. Patient was informed and verbally consented to the use of an ambient scribe for clinic note documentation during this visit. Orders: Referrals Neuro Spine Referral M51.25 - Other intervertebral disc displacement, thoracolumbar region, M51.34 - Other intervertebral disc degeneration, thoracic region Coding Level of Care Code New Pt Level 4 (55836) Diagnoses Degeneration, intervertebral disc, thoracic M51.34 Herniation of thoracolumbar intervertebral disc M51.25 Disc degeneration, lumbar M51.36 Spinal stenosis, thoracic M48.04 Chronic sacroiliac joint pain M53.3; G89.29 Chronic pain syndrome G89.4 Lumbar radiculopathy, chronic M54.16 Lumbosacral spondylosis M47.817
[2025-09-04 13:03] VITALS: BP 125/58; PULSE 98; O2SAT 97; BMI 32.8
== END 2025-09-04 13:21 | disposition home or self-care (01) ==
LOC: HO.PMC 12:59
PROVIDERS: Visit Provider Nurse Practitioner Family
DX: M51.34 Other intervertebral disc degeneration, thoracic region (principal); M51.25 Other intervertebral disc displacement, thoracolumbar region; M51.369 Other intervertebral disc degeneration, lumbar region without mention of lumbar back pain or lower extremity pain; M48.04 Spinal stenosis, thoracic region; M53.3 Sacrococcygeal disorders, not elsewhere classified; G89.29 Other chronic pain; G89.4 Chronic pain syndrome; M54.16 Radiculopathy, lumbar region; M47.817 Spondylosis without myelopathy or radiculopathy, lumbosacral region
CPT/HCPCS: 99214

== ENCOUNTER → 2025-09-04 12:58 | Outpatient (BNVA) | payer OTHER, SELFPAY | PROVIDERS: Visit Provider Nurse Practitioner Family | DX: M51.369 Other intervertebral disc degeneration, lumbar region without mention of lumbar back pain or lower extremity pain (principal); M51.34 Other intervertebral disc degeneration, thoracic region; M51.25 Other intervertebral disc displacement, thoracolumbar region; M48.04 Spinal stenosis, thoracic region; M53.3 Sacrococcygeal disorders, not elsewhere classified; G89.4 Chronic pain syndrome; M54.16 Radiculopathy, lumbar region; M47.817 Spondylosis without myelopathy or radiculopathy, lumbosacral region | CPT/HCPCS: 99212 ==

== ENCOUNTER 2025-09-29 08:43 | Outpatient (AMB) | payer OTHER, SELFPAY ==
--- OUTSIDE RECORDS SUMMARY | 2024-04-29 06:15 | XMS_ITS ---
Author Organization [facility] Address [address] [facility] [place] [address] Care Team Providers Care Watermelon Harvesting Supervisor Name Role Phone Lina PLEITEZ, Keyona Reynoso Primary Care Provider Unav ailable Gregoria Doss Unavailable [phone] Encounters Encounter Location Date Provider Diagnosis [address] [address] 04/29/2024 Gregoria Romario Plan Of Treatment Next Appt Details Provider Name:Gregoria Doss , 10/24/2025 10:00:00 AM, [address] [facility], [place], [address], Progress Notes * Elizabeth CHU MDOB: [birth year] (65 yo F)Acc No.[id number]:04/29/2024 Progress Note Patient: Porfirio MEJIA Elizabeth Monroy Provider: Keiry Doss DPM :1960 A ge:63 Y S ex:Female Date:04/29/2024 Address[address] [id number] Pcp:Keyona Mills MD Subjective: * Chief Complaints: * * Medical History: Objective: * Vitals: Assessment: Plan: * Treatment: * Images: * The named appointment provid er may or may not be the originator of this progress note, and it is not deemed complete until electronically signed by the appointment provider. Sign off status: Pending * Provider: Keiry Doss DPM Date: 0 04/29/2024 Generated for Dmitry gleason/Elizabeth/Dalton on: 1 11/29/2024 08:59 AM EST
--- OUTSIDE RECORDS SUMMARY | 2024-09-12 10:00 | XMS_ITS ---
Author Organization [facility] Address [address] [place] [address] Care Team Providers Care Billing And Accounting Staff Assistant Name Role Phone Lina PLEITEZ, Keyona Reynoso Primary Care Provider Unav ailable Gregoria Doss Unavailable [phone] Encounters Encounter Location Date Provider Diagnosis [facility] [address] [place] [address] 09/12/2024 Gregoria Romario Plan Of Treatment Next Appt Details Provider Name:Gregoria Doss , 10/24/2025 10:00:00 AM, [address] [place], [address], Progress Notes * Elizabeth CHU MDOB: [birth year] (65 yo F)Acc No.[id number]:09/12/2024 Progress Note Patient: Porfirio MEJIA Elizabeth Monroy Provider: Keiry Doss DPM :1960 A ge:64 Y S ex:Female Date:09/12/2024 Address:[address] [id number] Pcp:Keyona Mills MD Subjective: * Chief Complaints: [...] Date: Generated for Dmitry gleason/Elizabeth/Dalton on: 1 11/29/2024 08:58 AM EST
[2025-09-29 08:55] VITALS: BMI 28.0
--- NOTE | 2025-09-29 08:55 | HO.SPINEOV ---
Vital Signs 09/29/25 08:55 Height 5 ft 5 in Weight 168 lb BMI 28.0 Intake Visit Reasons: LBP Intake Note: Ms. Chu is here today c/o low back pain. MRI done at [facility]. 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 Allergies nut - unspecified (nut) Allergy (Severe, Verified 09/29/25 08:59) ANAPHYLAXIS cephradine (From VELOSEF) Allergy (Unknown, Verified 09/29/25 08:59) HIVES egg (EGGS) Adverse Reaction (Unknown, Verified 09/29/25 08:59) NAUSEA & VOMITING prochlorperazine (From COMPAZINE) Adverse Reaction (Unknown, Verified 09/29/25 08:59) CONVULSIONS Physical Exam Vital Signs: BMI result Body Mass Index 28.0 Assessment & Plan Assessment & Plan (1) Cervical disc disorder: Code(s): M50.90 - Cervical disc disorder, unspecified, unspecified cervical region Category: Medical (2) Sacroiliitis: Code(s): M46.1 - Sacroiliitis, not elsewhere classified Category: Medical Plan Mrs Chu is here in follow up. He has seen Dr. Babcock in the past for SI joint issues. The patient has a complicated spinal history, with overlapping diagnosis of fibromyalgia. She has diffuse arthritis throughout most of her spine as well as bilateral SI joint inflammation. She generally responds well to the injections, reports 75-80% improvement with recent bilateral SI joint injections done in May. The affect was only for a few weeks however. She has diffuse spine pain and trouble walking. Also reports pain in her cervical spine with numbness going down her left arm. She gets dizzy if she raises her arms over her head. On exam, she is awake alert oriented no acute distress, she has some mild hand weakness, no atrophy. She has pain and tenderness along most areas of her lower extremities with any manipulation. Attempts at MARCOS testing give pain in the back as well as in the hips. Positive finger Gray sign bilaterally. Reflexes in the upper extremities reveals slight hyperreflexia with Tapia's sign on the left hand, as well as slightly brisk reflexes with a beat of clonus or 2 in the left Achilles. Lumbar MRI done at [facility] has shown degenerative disc disease albeit not severe. She has a disc bulge at T12-L1 which is causing some indentation of the spinal cord, no myelomalacia, stable compared to images from 2021. She was told in [place] that they could possibly do surgery on her back, but that she might on the table. She has been very frustrated with any lack of progress and how to help her pain. We talked about the fact that fixing diffuse back pain, especially with an overlapping diagnosis of fibromyalgia, is probably not realistic. We should try to focus more on anyone or 2 areas that seemed to bother her more than others. The SI joints seem to be the main player in her pain syndrome. Since she has had such good response to injections, she might be a candidate for SI joint fusion, but typically Dr. Babcock would like to injections to confirm with at least 80% improvement. She has another injection coming up I believe later this month so that should help us with the decision on whether or not we can do an SI joint fusion. I would like to get a cervical MRI because of her history of left arm numbness and the hyperreflexia seen on the left side in the arm and leg. I will see her back once the cervical MRIs done and her 2nd set of injections are completed. Total amount of time spent in this visit was 20 minutes in discussion of symptoms, lumbar MRI imaging results and subsequent plan of care Mike Babcock MD,PhD [facility] Orders: Orders MR cervical spine wo con Today M50.90 - Cervical disc disorder, unspecified, unspecified cervical region Coding Level of Care Code Est Pt Level 3 (72984) Diagnoses Cervical disc disorder M50.90 Sacroiliitis M46.1
--- OUTSIDE RECORDS SUMMARY | 2025-09-29 08:58 | XMS_ITS | Encounter Summary ---
Author Organization [employer] Address [address] [place] [address] Care Team Providers Care Apparel Sales Associate Name Role Phone Keyona Mills MD Primary Care Provider [phone] Reason for Visit * Reason Onset Date Comments COPD 10/25/2024 Encounter Details Date Type Department Care Team (Late st Contact Info) Description 10/25/2024 Nurse Triage Adult Medicine [facility] [place], [place] [address] [place] [phone] Keyona Mills MD [address] [place] [address] Social History Tobacco Use Types Packs/Day Years [...] exposures) No Protocols used: Cough - Acute [id number] * Bill Marshall - 10/25/2024 9:04 AM [...] traveled recently to another state outside of [place], [place], [place], [place], [place], [place], [place]? no o If yes, did you quarantine [...] of accident/Injury: No If yes, gather 3rd libertarian insurance information Third Democrat Information: not applicable PCP: Keyona Mills MD Payor: [employer]ILY [employer]AN / Plan: FAMILY HEALTH PLAN / Product Type: *No Product type* / documented in this encounter Plan of Treatment Upcoming Encounters Date Type Department Care Team (Late st Contact Info) Description 10/09/2025 9:00 AM EST Appointment [facility] CT Scan [address] [place] [address] 11/01/2025 2:00 PM EST Ancillary Procedure Pulmonology - [place] [address] [place] [phone] 11/01/2025 2:45 PM EST Office Visit Pulmonology - [place] [address] [facility] [address] [place] [phone] Payal Yoon MD [address] [place] [phone] 11/08/2025 2:30 PM EST Office Visit Adult Medicine [facility] [place], [place] [address] [place] [phone] eKyona Mills MD [address] [place] [address] documented as of this encounter Visit Diagnoses Not on filedocumented in this encounter Care Teams Apparel Sales Associate Relationship Specialty Start Date End Date Keyona Mills MD [address] [place] [address] PCP - General Internal Medicine 08/10/20 documented as of this encounter
--- OUTSIDE RECORDS SUMMARY | 2025-09-29 08:59 | XMS_ITS | Patient Health Record ---
Author Organization [facility] Address [address] [place] [address] Care Team Providers Care [employer] Supervisor Name Role Phone Lina PLEITEZ, Keyona Reynoso Primary Care Provider Unav ailable Gregoria Doss Unavailable [phone] Allergies Allergen (clinical drug ingredient) Drug/Non Drug [...] Limb (729.5) Referring Provider First Name [facility] Referring Provider Last Name Lina [facility]erred [facility] Referred Provider Gregoria Doss Referred Address [address] [facility],[place], [place],[address], Referred Provider Specialty Podiatry Referral Priority Routine [...] W/U Status Risk Notes Problem Plantar wart (77304825) Plantar wart (B07.0) Active confirmed Vital Signs Blood pressure diastolic 75 mm Hg 04/25/2025 Height 5ft 1in in 04/25/2025 Blood pressure systolic 118 mm Hg 04/25/2025 Weight 175 lbs 04/25/2025 BMI 33.06 kg/m2 04/25/2025 Procedures Procedure Date Ordered Date Performed Result Body Sit e 63423-BIBQFEY NAIL, 6 OR MORE 04/25/2025 N/A 55720-Qoha Destruction, 1-14 04/25/2025 N/A Encounters Encounter Location Date Provider Diagnosis [facility] [address] [address] 04/25/2025 Gregoria Black Onychomycosis B35.1 ; Pain in right toe(s) M79.674 ; Pain in left toe(s) M79.675 ; Right foot pain M79.671 and Plantar wart B07.0 Assessments Encounter Date Diagnosis (ICD Code) Assessment Notes Treatment Notes Treatment Clinical Notes Section Notes 04/25/2025 Onychomycosis (ICD-10 - B35.1) 04/25/2025 Pain in right toe(s) (ICD-10 - M79.674) 04/25/2025 Pain in left toe(s) (ICD-10 - M79.675) 04/25/2025 Right foot pain (ICD-10 - M79.671) 04/25/2025 Plantar wart (ICD-10 - B07.0) Plan Of Treatment Pending Test Test Name Order Date *Liver Function Test (LFT) 04/29/2012 59544-EVFMCQZ NAIL, 6 OR MORE 07/05/2012 35025-KPUMXUR NAIL, 6 OR MORE 12/01/2013 48271-VTUQFMA NAIL, 6 OR MORE 01/26/2012 79316-DZWAOND NAIL, 6 OR MORE 04/29/2012 68882-UMCLBCP NAIL, 6 OR MORE 06/27/2014 27726-ZEEKKDJ NAIL, 6 OR MORE 09/06/2015 24120-WZAWGGR NAIL, 6 OR MORE 03/10/2016 03730-TNVFBSF NAIL, 6 OR MORE 09/04/2016 15231-XQQLUOQ NAIL, 6 OR MORE 07/28/2017 89227-BNEIGEQ NAIL, 6 OR MORE 02/11/2018 95695-TYRVZJQ NAIL, 6 OR MORE 08/09/2019 22090-OBIHPII NAIL, 6 OR MORE 03/27/2020 36457-PLFZAVC NAIL, 6 OR MORE 11/22/2018 84867-NMYRPXE NAIL, 6 OR MORE 06/29/2020 88006-XMIXTMP NAIL, 6 OR MORE 10/17/2020 41710-ITXVQBZ NAIL, 6 OR MORE 09/17/2021 69842-NIJNHDC NAIL, 6 OR MORE 04/22/2023 29820-CJHXZSR NAIL, 6 OR MORE 10/21/2023 12493-TWTXNNZ NAIL, 6 OR MORE 09/14/2024 04650-UCELEJI NAIL, 6 OR MORE 04/25/2025 13076-Oaqs Destruction, -14 09/14/2024 62646-Lsos Destruction, -14 04/25/2025 46228-Khew Destruction, -14 10/21/2023 34720-Gymo Destruction, 14 04/22/2023 26902-Wwrk Destruction, 11-2908/09/2019 69351-Ujok Destruction, 14 09/17/2021 46943-Znax Destruction, 11-2910/17/2020 91632-Pksh Destruction, 11-2903/27/2020 41247-Efrk Destruction, 11-2906/29/2020 89653-Qwgs Destruction, 11-2911/22/2018 71245-Yqpp Destruction, 11-2902/11/2018 16124-Drmb Destruction, 11-2909/04/2016 15722-Wlrv Destruction, 11-2907/28/2017 75604-Arjx Destruction, -07/28/2014 44175-Ypaw Destruction, 11-2903/10/2016 05727-Uyko Destruction, 11-2909/06/2015 78205-Tnnu Destruction, 11-2907/13/2014 79087-Rvpg Destruction, 11-2904/29/2012 50496-Uejb Destruction, 14 09/11/2011 93598-Hecf Destruction, 11-2912/11/2011 07808-Jvoz Destruction, 14 01/26/2012 86180-Vjdx Destruction, 14 07/31/2011 93216-Yyao Destruction, 11-2910/19/2012 89933-Iiho Destruction, 14 12/01/2013 31107-Jldb Destruction, 11-2907/05/2012 39477-Lwwudzfp Plate 07/27/2012 14356-Gmtnildo Plate 09/04/2016 30646-Ssazlyqz Plate 08/09/2019 38467-Gimedofw Plate 09/17/2021 35321-Gggetded Plate 09/14/2024 96254-NEN 06/27/2014 99148- Debride <25 sq cm 07/31/2011 17524- Debride <25 sq cm 07/28/2014 02861-DNCLBJC SKIN/TISSUE 07/13/2014 36621- Removal of Foreign Body, Subcut 0 03/10/2016 27180- Biopsy of skin lesion 07/17/2011 28422- Biopsy of Addt'l Lesions 07/17/20 11 Next Appt Details Provider Name:Gregoria Doss , 10/24/2025 10:00:00 AM, [address] [facility], [place], [address], Insurance Providers Payer Name Payer Address Payer Phone Subscriber Number Group Number Insured Name Patient Relationship to Insured Coverage Start Date Coverage End Date [facility] [address] [place] [address] [phone] [id number] Elizabeth Chu Self - patient is the insured Medical (General) History Medical History History ICD Code transfusions thyroid disorder sinus conditions reflux osteoporosis mumps measles joint implants/screws headaches/migraines fibromyalgia chicken pox COPD Surgical History Surgery Date(Month/Year) foot surgery 1993,1994 hysterectomy 1995
--- OUTSIDE RECORDS SUMMARY | 2025-09-29 08:59 | XMS_ITS | Clinical Summary ---
Author Organization [facility] Address [address] [place] [address] Phone Care Team Providers Care Tray Service Worker Name Role Phone Keyona Mills MD Primary Care Provider [phone] Allergies Active Allergy Reactions Criticality Noted Date Comments Cephradine Hives 08/18/2007 Egg 08/18/2007 Iodinated Contrast Media Hives 08/18/2007 Iodine Hives 06/13/2021 Nut - Unspecified Other 10/06/2007 PEANUTS AND CASHEWS OKAY Prochlorperazine Other 08/18/2007 Seizure Medications acetaminophen/d iphenhydramine (TYLENOL PM EXTRA STRENGTH ORAL) Take by mouth 3 (three) times a day if needed (Pain). OTC Active cholecalciferol (VITAMIN D-3) 25 mcg (1,000 unit) tablet OTC 019 Active fluticasone propionate (FLONASE) 50 mcg/actuation nasal spray 2 Sprays by Nasal route daily. 024 Active ipratropium-alb uteroL (DUONEB) 0.5-2.5 mg/3 mL nebulizer solution Take 3 mL by nebulization if needed for shortness of breath or wheezing. Prescribed in Pulmonology 024 Active albuterol 2.5 mg /3 mL (0.083 %) nebulizer solutionIndicat ions:Chronic obstructive pulmonary disease, unspecified COPD type ([facility] V24, [facility] V28) Take 3 mL (2.5 mg total) by nebulization every 6 (six) hours if needed for wheezing. 360 mL 11 024 2024 Active albuterol HFA (PROAIR HFA ; PROVENTIL HFA ; VENTOLIN HFA) 90 mcg/actuation inhaler Inhale 2 puffs by mouth every 4 (four) hours if needed for wheezing. 6.7 g 1 025 Active fluticasone-ume clidinium-vilan terol (Trelegy Ellipta) 100-62.5-25 mcg inhalerIndicati ons:Chronic obstructive pulmonary disease, unspecified COPD type ([facility] V24, [facility] V28) Inhale 1 puff (100 mcg total) by mouth 1 (one) time each day. Rinse mouth with water after use to reduce aftertaste and incidence of candidiasis. Do not swallow. 3 each 3 025 2025 Active amitriptyline (ELAVIL) 75 mg tablet Take 1 tablet (75 mg total) by mouth at bedtime. at bedtime. 90 tablet 1 025 Active baclofen (LIORESAL) 10 mg tablet Take 1 tablet (10 mg total) by mouth 3 (three) times a day. 270 tablet 1 025 Active pantoprazole (PROTONIX) 40 mg EC tablet Take 1 tablet (40 mg total) by mouth 1 (one) time each day. Do not crush, chew, or split 90 each 025 Active levothyroxine (SYNTHROID, LEVOTHROID) 137 mcg tabletIndicatio ns:Chronic obstructive pulmonary disease with acute exacerbation ([facility] V24, [facility] V28),Obstructiv e sleep apnea,Hypothyro idism, unspecified type,Class 1 obesity with serious comorbidity and body mass index (BMI) of 33.0 to 33.9 in adult, unspecified obesity type,Mixed hyperlipidemia, Gastroesophagea l reflux disease, unspecified whether esophagitis present,Depress ion, unspecified depression type,Prediabete s,Need for prophylactic vaccination and inoculation against influenza Take 1 tablet (137 mcg total) by mouth 1 (one) time each day before breakfast. 90 tablet 1 025 2025 Active tirzepatide, weight loss, (Zepbound) 10 mg/0.5 mL injection Inject 0.5 mL (10 mg total) under the skin every 7 (seven) days. 2 mL 025 2024 Active simvastatin (ZOCOR) 40 mg tablet Take 1 tablet (40 mg total) by mouth at bedtime. 90 each 1 Active sertraline (ZOLOFT) 100 mg tabletIndicatio ns:Severe obesity due to excess calories with serious comorbidity and body mass index (BMI) 120% of 95th percentile to less than 140% of 95th percentile for age in pediatric p* (CMS/[facility] V24, [facility] V28),Prediabete s Take 2 Tablets by mouth daily. 180 each 1 Active gabapentin (NEURONTIN) 300 mg capsule TAKE 1 CAPSULE BY MOUTH THREE TIMES A DAY 270 capsule 1 Active gabapentin (NEURONTIN) 300 mg capsule Take 1 capsule (300 mg total) by mouth 3 (three) times a day. Prescribed by Jeremy Delgadillo 024 2024 Discontinued sertraline (ZOLOFT) 100 mg tabletIndicatio ns:Severe obesity due to excess calories with serious comorbidity and body mass index (BMI) 120% of 95th percentile to less than 140% of 95th percentile for age in pediatric p* ([facility] V24, [facility] V28),Prediabete s Take 2 Tablets by mouth daily. 180 each 1 025 2024 Discontinued(R eorder) simvastatin (ZOCOR) 40 mg tablet Take 1 tablet (40 mg total) by mouth at bedtime. 90 each 025 2024 Discontinued(R eorder) tirzepatide, weight loss, (Zepbound) 10 mg/0.5 mL injection Inject 0.5 mL (10 mg total) under the skin every 7 (seven) days. 2 mL 025 2024 Discontinued(R eorder) Active Problems Problem Noted Date Diagnosed Date [...] program Obstructive sleep apnea 10/12/2018 Overview (09/28/2024): [facility] Home Polysomnogram: Date 10/06/2018; AHI 13, [...] 11/02/2013 COPD (chronic obstructive pu lmonary disease) ([facility] V24, [facility] V28) 10/31/2013 Overview (09/28/2024): emphysema by low [...] Encounters Date Type Department Care Team Description 09/20/2025 Telephone Adult Medicine [address] [phone] Keyona Mills MD 08/18/2025 Telephone Lung Screening Program [address] [phone] Mary Eastman [place] 08/09/2025 10:00 AM EDT Office Visit Adult Medicine [address] [phone] Deangelo Johns NP Chronic obstructive pulmonary disease with acute exacerbation (CMS/HCC V24, CMS/HCC V28) (Primary Dx); Obstructive sleep apnea; Hypothyroidism, unspecified type; Class 1 obesity with serious comorbidity and body mass index (BMI) of 33.0 to 33.9 in adult, unspecified obesity type; Mixed hyperlipidemia; Gastroesophageal reflux disease, unspecified whether esophagitis present; Depression, unspecified depression type; Prediabetes; Need for prophylactic vaccination and inoculation against influenza 07/07/2025 Telephone Adult Medicine [address] [phone] Keyona Mills MD from Last 3 Months Immunizations Immunization Administration Dates Next Due Pneumococcal conjugate 20 va lent (Prevnar 20, PCV 20) 2mo and older 03/27/2023 Td Tetanus diptheria (Tdvax) 7yo and older 05/09 Tdap Tetanus diptheria acell ular pertussis (Boostrix; Adacel) 7yo and older 06/17/2023 Surgical History Surgery Date Site/Laterality Comments TONSILLECTOMY PROCEDURE: HISTORICAL TONSILLECTOMY BUNIONECTOMY PROCEDURE: NH CORRJ HLX VLGS BNCTY SESMDC W/DOUBLE OSTEOTOMY HYSTERECTOMY PROCEDURE: HISTORICAL HYSTERECTOMY; COMMENT: endometriosis COLONOSCOPY 2004 PROCEDURE: NH COLONOSCOPY STOMA DX INCLUDING COLLJ SPEC SPX; COMMENT: Up to cecum, well prepared. by Dr. Perez COLONOSCOPY 07/25/08 PROCEDURE: NH COLONOSCOPY STOMA DX INCLUDING COLLJ SPEC SPX; [...] COMMENT: hysterectomy 1995, Dr. Angelica Cortes 08/18/2007 DX:Bunhero; YONI NT: bunionectomy 1993 Disorder of bone and [...] Date Smoking Tobacco: Every Day Cigarettes 1 48.9 Started: 1976 Passive Smoke Exposure: Current Smokeless [...] care for your loved ones. For example, children's author or elderly care for an older adult? [...] Info) Description 10/09/2025 9:00 AM EST Appointment [facility] CT Scan [address] [place] [phone] 11/01/2025 2:00 PM EST Ancillary Procedure Pulmonology - [place] [address] [phone] 11/01/2025 2:45 PM EST Office Visit Pulmonology [facility] [address] [phone] Payal Yoon MD [address] [place] [phone] 11/08/2025 2:30 PM EST Office Visit Adult Medicine [facility] [address] [place] [phone] Keyona Mills MD [address] [place] [address] Health Maintenance Due Date Last Done Comments Cervical Cancer Screening: Pap Smear 1981 RSV Immunization Adult Patients (1 - Risk 50-74 years 1-dose series) 2010 Zoster Vaccines (1 of 2) 2010 Osteoporosis Screening (Bone Density Screening) 10/25/2022 Colorectal Cancer Screening: Colonoscopy 08/19/2023 08/19/2018 Influenza Vaccine (#1) 2025 Falls Risk Assessment 2025 Lung Cancer Screening (Low Dose CT) [...] 95th percentile for age in pediatric p* ([facility] V24, [facility] V28) Prediabetes Chronic obstructive pulmonary disease with acute exacerbation ([facility] V24, [facility] V28) Obstructive sleep apnea Hypothyroidism, unspecified type Mixed hyperlipidemia Need for prophylactic vaccination and inoculation against influenza COMPREHENSIVE METABOLIC PANEL Routine 08/09/2025 10:53 AM EDT Severe obesity due to excess calories with serious comorbidity and body mass index (BMI) 120% of 95th percentile to less than 140% of 95th percentile for age in pediatric p* ([facility] V24, [facility] V28) Prediabetes Chronic obstructive pulmonary disease with acute exacerbation ([facility] V24, [facility] V28) Obstructive sleep apnea Hypothyroidism, unspecified type Mixed hyperlipidemia Need for prophylactic vaccination and inoculation against influenza HEMOGLOBIN A1C Routine 08/09/2025 10:53 AM EDT Severe obesity due to excess calories with serious comorbidity and body mass index (BMI) 120% of 95th percentile to less than 140% of 95th percentile for age in pediatric p* ([facility] V24, [facility] V28) Prediabetes Chronic obstructive pulmonary disease with acute exacerbation ([facility] V24, [facility] V28) Obstructive sleep apnea Hypothyroidism, unspecified type Mixed hyperlipidemia Need for prophylactic vaccination and inoculation against influenza CBC AND DIFFERENTIAL Routine 08/09/2025 10:53 AM EDT Severe obesity due to excess calories with serious comorbidity and body mass index (BMI) 120% of 95th percentile to less than 140% of 95th percentile for age in pediatric p* ([facility]/HCC V24, [facility]/HCC V28) Prediabetes Chronic obstructive pulmonary disease with acute exacerbation ([facility] V24, [facility] V28) Obstructive sleep apnea Hypothyroidism, unspecified type Mixed hyperlipidemia Need for prophylactic vaccination and inoculation against influenza LIPID PANEL WITH REFLEX TO DIRECT LDL Routine 03/28/2025 1:49 PM EDT Vitamin D deficiency Hypothyroidism, unspecified type Chronic obstructive pulmonary disease with acute exacerbation ([facility] V24, [facility] V28) Obesity (BMI 30.0-34.9) Mixed hyperlipidemia CT LUNG SCREENING LOW DOSE Routine 09/06/2024 3:01 PM EDT COLONOSCOPY Routine 08/19/2018 HEPATITIS C SCREENING Routine 02/16/2014 from Last 3 Months or Most Recently Relevant to Health Maintenance Results * (ABNORMAL) CBC auto differential (08/09/2025 10:53 AM EDT) WBC 13.6(H) 4.8 - 10.8 K/mcL LAB HEMETOLOGY METHOD 08/09/2025 2:07 PM EDT [facility] RBC 4.60 3.80 - 4.80 M/mcL LAB HEMETOLOGY METHOD 08/09/2025 2:07 PM EDT [facility] Hemoglobin 14.9 11.5 - 16.0 g/dL LAB HEMETOLOGY METHOD 08/09/2025 2:07 PM EDT [facility] Hematocrit 44.6 35.0 - 47.0 % LAB HEMETOLOGY METHOD 08/09/2025 2:07 PM EDT [facility] MCV 96.7 79.0 - 98.0 FL LAB HEMETOLOGY METHOD 08/09/2025 2:07 PM EDT [facility] MCH 32.3(H) 27.0 - 32.0 pcg LAB HEMETOLOGY METHOD 08/09/2025 2:07 PM [facility] MCHC 33.4 32.0 - 37.0 g/dL LAB HEMETOLOGY METHOD 08/09/2025 2:07 PM [facility] RDW 13.7 11.0 - 15.0 % LAB HEMETOLOGY METHOD 08/09/2025 2:07 PM [facility] Platelets 348 130 - 400 K/mcL LAB HEMETOLOGY METHOD 08/09/2025 2:07 PM [facility] MPV 9.7 7.0 - 11.0 FL LAB HEMETOLOGY METHOD 08/09/2025 2:07 PM [facility] NRBC 0.0 <1.0 % LAB HEMETOLOGY METHOD 08/09/2025 2:07 PM [facility] NRBC Absolute 0.00 <0.10 K/mcL LAB HEMETOLOGY METHOD 08/09/2025 2:07 PM [facility] Neutrophils Relative 57.2 % LAB HEMETOLOGY METHOD 08/09/2025 2:07 PM [facility] Lymphocytes Relative 34.8 % LAB HEMETOLOGY METHOD 08/09/2025 2:07 PM [facility] Monocytes Relative 5.4 % LAB HEMETOLOGY METHOD 08/09/2025 2:07 PM [facility] Eosinophils Relative 1.5 % LAB HEMETOLOGY METHOD 08/09/2025 2:07 PM [facility] Basophils Relative 0.7 % LAB HEMETOLOGY METHOD 08/09/2025 2:07 PM [facility] Immature Granulocytes Relative 0.4 % LAB HEMETOLOGY METHOD 08/09/2025 2:07 PM [facility] Neutrophils Absolute 7.76(H) 1.50 - 7.00 K/[facility] LAB HEMETOLOGY METHOD 08/09/2025 2:07 PM EDT [facility] Lymphocytes Absolute 4.73 1.00 - 5.00 K/mcL LAB HEMETOLOGY METHOD 08/09/2025 2:07 PM EDT [facility] Monocytes Absolute 0.73 0.20 - 1.00 K/[facility] LAB HEMETOLOGY METHOD 08/09/2025 2:07 PM EDT [facility] Eosinophils Absolute 0.21 0.00 - 0.50 K/[facility] LAB HEMETOLOGY METHOD 08/09/2025 2:07 PM EDT [facility] Basophils Absolute 0.10 0.00 - 0.20 K/[facility] LAB HEMETOLOGY METHOD 08/09/2025 2:07 PM EDT [facility] Immature Granulocytes Absolute 0.06(H) 0.00 - 0.03 K/[facility] LAB HEMETOLOGY METHOD 08/09/2025 2:07 PM EDT [facility] Blood Venous blood specimen / Unknown Venipuncture / Unknown 08/09/2025 10:53 AM EDT 08/09/2025 10:53 AM EDT us Deangelo Johns MATERIAL DISPATCHER LAB BLOOD ORDERABLES Final R esult [facility] [address] [place] [address], * Hemoglobin A1c (08/09/2025 10:53 AM EDT) Hemoglobin A1C 5.2 <6.5 % LAB CHEMISTRY METHOD 08/09/2025 2:28 PM EDT [facility] Mean Bld Glu Estim. 103 mg/dL LAB CHEMISTRY METHOD 08/09/2025 2:28 PM EDT [facility] Blood Venous blood specimen / Unknown Venipuncture / Unknown 08/09/2025 10:53 AM EDT 08/09/2025 10:53 AM EDT Deangelo Johns NP LAB BLOOD ORDERABLES Final R esult [facility] [address] [place] [address], [place] [phone] * Comprehensive metabolic panel (08/09/2025 10:53 AM EDT) Sodium 140 133 - 145 mmol/L LAB CHEMISTRY METHOD 08/09/2025 4:20 PM [facility] Potassium 4.0 3.5 - 5.5 mmol/L LAB CHEMISTRY METHOD 08/09/2025 4:20 PM [facility] Chloride 104 96 - 110 mmol/L LAB CHEMISTRY METHOD 08/09/2025 4:20 PM [facility] CO2 31 21 - 32 mmol/L LAB CHEMISTRY METHOD 08/09/2025 4:20 PM [facility] Anion Gap 5 3 - 11 LAB CHEMISTRY METHOD 08/09/2025 4:20 PM [facility] Glucose 74 70 - 100 mg/dL LAB CHEMISTRY METHOD 08/09/2025 4:20 PM [facility] BUN 8 5 - 25 mg/dL LAB CHEMISTRY METHOD 08/09/2025 4:20 PM [facility] Creatinine 0.56 0.50 - 1.10 mg/dL LAB CHEMISTRY METHOD 08/09/2025 4:20 PM [facility] eGFR 102 >=60 mL/min/1. 73m2 LAB CHEMISTRY METHOD 08/09/2025 4:20 PM [facility] Comment:Calculation based on the Chronic Kidney Disease Epidemiology Collaboration (CKD-EPI) equation refit without adjustment for race. BUN/Creatinine Ratio 14.3 LAB CHEMISTRY METHOD 08/09/2025 4:20 PM [facility] Calcium 9.4 8.5 - 10.5 mg/dL LAB CHEMISTRY METHOD 08/09/2025 4:20 PM EDT [facility] AST (SGOT) 16 10 - 42 unit/L LAB CHEMISTRY METHOD 08/09/2025 4:20 PM EDT [facility] ALT (SGPT) 12 10 - 60 unit/L LAB CHEMISTRY METHOD 08/09/2025 4:20 PM EDT [facility] Alkaline Phosphatase 74 42 - 121 unit/L LAB CHEMISTRY METHOD 08/09/2025 4:20 PM EDT [facility] Total Protein 7.0 6.0 - 8.0 g/dL LAB CHEMISTRY METHOD 08/09/2025 4:20 PM T [facility] Albumin 3.7 3.2 - 5.0 g/dL LAB CHEMISTRY METHOD 08/09/2025 4:20 PM T [facility] Total Bilirubin 0.4 0.0 - 1.4 mg/dL LAB CHEMISTRY METHOD 08/09/2025 4:20 PM T [facility] Blood Venous blood specimen / Unknown Venipuncture / Unknown 08/09/2025 10:53 AM EDT 08/09/2025 10:53 AM EDT us Deangelo Johns MATERIAL DISPATCHER LAB BLOOD ORDERABLES Final R esult [facility] [address] [place] [address], * (ABNORMAL) Lipid panel with reflex to direct LDL (03/28/2025 1:49 PM EDT) Cholesterol 179 0 - 200 mg/dL LAB CHEMISTRY METHOD 03/28/2025 4:33 PM EDT [facility] Triglycerides 95 0 - 150 mg/dL LAB CHEMISTRY METHOD 03/28/2025 4:33 PM EDT [facility] HDL 57 >=40 mg/dL LAB CHEMISTRY METHOD 03/28/2025 4:33 PM EDT [facility] LDL Calculated 103(H) 0 - 100 mg/dL LAB CHEMISTRY METHOD 03/28/2025 4:33 PM EDT [facility] VLDL Cholesterol Iglesia 19 mg/dL LAB CHEMISTRY METHOD 03/28/2025 4:33 PM EDT [facility] Non HDL Chol. (LDL+VLDL) 122 <145 mg/dL LAB CHEMISTRY METHOD 03/28/2025 4:33 PM EDT [facility] Chol/HDL Ratio 3.1 0.0 - 4.4 LAB CHEMISTRY METHOD 03/28/2025 4:33 PM EDT [facility] Blood Venous blood specimen / Unknown Venipuncture / Unknown 03/28/2025 1:49 PM EDT 03/28/2025 1:49 PM EDT us Jeremy SIMMONS LAB BLOOD ORDERABLES Fin al Result [facility] [address] [place] [address], * CT LUNG SCREENING LOW DOSE (09/06/2024 3:01 PM EDT) Anatomical Region Laterality Modality Computed Tomogra phy 09/06/2024 1:34 PM EDT Narrative 09/06/2024 3:01 PM EDT [facility] Diagnostic Imaging Department [address] [place] [address] Patient: LIZETH LOPES./Age/Sex: 1960 - 64 - F Unit#: [id number] Location/Status: SPDICATLS/REG CLI Mnemonic/Ordering Site: CTLUNGLD/SPCT Ordering Physician: MICHAEL JOE MD CT Lung Screening Low Dose - [...] Procedure Note Gilbert Jenkins MD - 09/13/2024 [facility] Diagnostic Imaging Department [address] [place] [id number] Patient: LIZETH LOPES /Age/Sex: 1960 - 64 - F Unit#: [id number] Location/Status: SPDICATLS/REG CLI Mnemonic/Ordering Site: CTLUNGLD/SPCT Ordering Physician: MICHAEL JOE MD CT Lung Screening Low Dose - [...] 09/06/24 1406 Sign date/Time: 09/06/24 1501 Michael Joe MD IMG CT PROCEDURES Final Result * Colonoscopy (08/19/2018) Colonoscopy No Interpretation , Abstracted Anatomical Region Laterality Modality Other Historical Provider HEALTH MAINTENANCE Final Result * Hepatitis C Screening (02/16/2014) Hepatitis C Screening Abstracted Historical Provider HEALTH MAINTENANCE Final Result from Last 3 Months or Most Recently Relevant to Health Maintenance Insurance [employer] Care Teams Tray Service Worker Relationship Specialty Start Date End Date Keyona Mills MD [address] [place] [address] PCP - General Internal Medicine 08/10/20
--- OUTSIDE RECORDS SUMMARY | 2025-09-29 08:59 | XMS_ITS | Encounter Summary ---
Author Organization [employer] Address [address] [place] [address] Care Team Providers Care Identity Access Management Architect Name Role Phone Keyona Mills MD Primary Care Provider Reason for Referral * Consultation (Routine) - Closed Specialty Diagnoses / Procedures Referred By Shanelle trevino Referred To Contact Neurosurgery Diagnoses Other intervertebral disc displacement, thoracolumbar region Keyona Mills MD [address] [place] [address] Phone: tel: fax: Mike Neves, PA [address] [address] Phone: tel: fax: Referral ID Status Reason Start Date Expiration Date V isits Requested Visits Authorized [id number] Closed Specialty Services Required 09/19/2025 09/26/2026 6 6 Reason for Visit * Reason Onset Date Comments Referral 09/20/2025 Neurosurgery Encounter Details Date Type Department Care Team (Late st Contact Info) Description 09/20/2025 Telephone Adult Medicine [facility] [address] [place] [phone] Keyona Mills MD [address] [place] [address] Social History Tobacco Use Types Packs/Day Years [...] care for your loved ones. For example, childhood development teacher or elderly care for an older adult? [...] as of this encounter Progress Notes * Anastacio Srinivasan - 09/20/2025 3:35 PM EST What insurance does the patient have today? Payor: Family Referrals cannot be processed if the insurance is not accurate. If the insurance listed above is NO BILLING INFORMATION FOUND FOR THIS ENCOUNTER then the patients correct insurance must be obtainedand registered in [facility] or their referral can not be processed. Name of person calling to request this referral? Tanisha Referred To Provider (Include first and last name): Mike Neves PA-C NPI (if known): [id number] Order/Specialty requested Neurosurgery Chief Complaint (Note: This is not a body part or a procedure): Disc Displacement Has the patient seen provider for this problem/Dx before? N/A Referred To Provider Address: [address] [place] [address] Referred To Provider Referred To Provider Does patient have an appointment scheduled?: No If yes, what is the date of the appointment?: N/A Is this a retro request? No Number of visits requested: 6 documented in this encounter Plan of Treatment Upcoming Encounters Date Type Department Care Team (Late st Contact Info) Description 10/09/2025 9:00 AM EST Appointment [facility] CT Scan [address] [place] [address] 11/01/2025 2:00 PM EST Ancillary Procedure Pulmonology - [place] [address] [phone] 11/01/2025 2:45 PM EST Office Visit Pulmonology - [place] [address] [phone] Payal Yoon MD [address] [place] [phone] 11/08/2025 2:30 PM EST Office Visit Adult Medicine [facility] [address] [place] [phone] Keyona Mills MD [address] [place] [phone] Scheduled Referrals Name Type Priority Associated Diagnoses Orde r Schedule Ambulatory referral to Neurosurgery Outpatient Referral Routine Other intervertebral disc displacement, thoracolumbar region 1 Occurrences starting 09/26/2025 until 09/20/2026 documented as of this encounter Visit Diagnoses Diagnosis Other intervertebral disc displacement, thoracolumbar region- Primary documented in this encounter Additional Health Concerns Assessment Noted Time PHQ-9 Depression Total Score: 0 08/09/20 25 10:00 AM EDT documented as of this encounter Care Teams Identity Access Management Architect Relationship Specialty Start Date End Date Keyona Mills MD [address] [place] [phone] PCP - General Internal Medicine 08/10/20 documented as of this encounter
--- OUTSIDE RECORDS SUMMARY | 2025-09-29 08:59 | XMS_ITS | Clinical Summary ---
Author Organization [facility] Address [address] [place] [address] Care Team Providers Care Rehabilitation Team Lead Name Role Phone Unavailable Primary Care Provider [...] of 2) 2010 Influenza Vaccine (#1) 2025 Fall Risk Assessment 2025 Osteoporosis Screening (DEXA Scan) 2025 RSV Adult > 60+ Yrs or Pregn ant (1 - 1-dose 75+ series) 2035 Hepatitis B Vaccines Aged Out No long er eligible based on patient's age to complete this topic RSV Ped < 20 months Aged Out No longe r eligible based on patient's age to complete this topic
== END 2025-09-29 09:42 | disposition home or self-care (01) ==
LOC: HO.HNS 08:43
PROVIDERS: PCP Internal Medicine; Visit Provider Physician Assistant
DX: M50.90 Cervical disc disorder, unspecified, unspecified cervical region (principal); M46.1 Sacroiliitis, not elsewhere classified
CPT/HCPCS: 99213

== ENCOUNTER → 2025-09-29 08:43 | Outpatient (BNVA) | payer OTHER, SELFPAY | PROVIDERS: PCP Internal Medicine; Visit Provider Physician Assistant | DX: M46.1 Sacroiliitis, not elsewhere classified (principal); M50.30 Other cervical disc degeneration, unspecified cervical region | CPT/HCPCS: 99212 ==

== ENCOUNTER 2025-10-11 10:54 | Outpatient (AMB) | payer OTHER, SELFPAY ==
--- NOTE | 2025-10-11 10:55 | MHC.OFFVIS ---
Vital Signs 10/11/25 10:56 Height 5 ft 5 in Weight 169 lb BMI 28.1 BP 111/69 Blood Pressure Location Rt brachial Position Sitting Respiration 16 Pulse 95 Pulse Source Pulse Oximeter Pulse Oximetry (%) 98 Oxygen Delivery Method Room Air Intake Visit Reasons: Follow Up Per Dr. Bee Senior Catering Sales Manager Required: No Accompanied by: Self / Same As Patient Allergies nut - unspecified (nut) Allergy (Severe, Verified 10/11/25 10:56) ANAPHYLAXIS cephradine (From VELOSEF) Allergy (Unknown, Verified 10/11/25 10:56) HIVES egg (EGGS) Adverse Reaction (Unknown, Verified 10/11/25 10:56) NAUSEA & VOMITING prochlorperazine (From COMPAZINE) Adverse Reaction (Unknown, Verified 10/11/25 10:56) CONVULSIONS HPI Comments Details: Elizabeth is in my office today after I canceled her epidural steroid injection at L5-S1 bilateral. Yesterday she came for the injection and stated that last epidural steroid injection of the same kind resulted only in 2 weeks of pain relief. I was surprised to hear that she is scheduled for yet another epidural steroid injection since the 1st injection practically did not work. However today patient came and reported that she made a mistake yesterday and epidural steroid injection which was done for her before lasted 3-4 months. This is a significant time to consider repetition of the epidural steroid injection. Patient is also interested in permanent solution for her pain. She went for consult with neurosurgeon and neurosurgery did not find any reason to operate on this patient. We discussed today [place] [employer] spinal cord stimulator. I gave patient a brochure about [place] [employer] spinal cord stimulator. I also gave her [employer] brochure so she will start calling the psychologist to obtain psychological evaluation. I apologized to the patient and I will schedule her next week for the transforaminal epidural steroid injection L5-S1. Prior: The patient is a 65-year-old female presenting with back pain radiating to the legs. The pain initially affected the right leg but has now progressed to involve both legs, with pain in the front of the thighs and the back of the legs. She also continues to endorse persistent mid back pain with daily activities. The patient reports that the pain is consistent with the findings of the recent MRI, which shows multilevel involvement. The MRI findings indicate lumbar spinal stenosis with moderate to severe stenosis at L5-S1, where there is a first-degree spondylolisthesis. There is also central disc extrusion, 0.8 cm AP x 1 cm transverse extending cephalad 1.9 cm with ventral impingement on the cord resulting in lhsx-jf-vlbsahfj central canal stenosis and no significant neural foraminal stenosis. There is also evidence of multilevel disc bulges and facet arthropathy, contributing to the patient's symptoms. The patient has not experienced any falls or instability. She uses cane with ambulation and concern for increased pain during upcoming trip overseas and prolonged plane ride and walking. The patient denies taking any consistent pain medications recently, although she has used ibuprofen in the past. She reports a pain level of 5/10 today and has occasionally been taking Tylenol. Denies any recent cough, cold, infection, fever or any significant changes in medical history since last office visit. - Pain radiates from the back to both legs, initially affecting the right leg and now involving both legs. - Pain is located in the front of the thighs and the back of the legs. - Pain level is reported as 5/10 today. - Pain interferes with daily activities such as walking and bending down. - Analgesia: Current pain level is 5/10; no consistent use of pain medications reported recently. - Activities of Daily Living: Pain limits daily activities such as walking and bending. PRIOR: The patient is a 64-year-old female presenting with chronic pain management concerns. The patient reports a history of spinal issues, including spinal stenosis, lumbar disc degeneration, and lumbar spondylosis, which have been ongoing for several years. She has not undergone any back surgery and denies any specific injury leading to her current condition. The patient received bilateral sacroiliac joint injections with steroids on June 06, which provided complete relief for only two weeks. Previous injections in 2018 at [facility] provided longer-lasting relief. The patient is currently considering alternative pain management options, including a spinal cord stimulator. The patient experiences pain primarily in the lower back and right buttock, with radiation to the right leg. The pain is exacerbated by walking and backward flexion, and she reports weakness more pronounced on the right side. She is currently taking gabapentin, ibuprofen, baclofen, amitriptyline, and Zepbound, with some weight loss noted. Denies any recent cough, cold, infection, fever or any significant changes in medical history since last office visit - Onset: Chronic, with exacerbations over several years - Quality: Sharp and radiating - Location: Lower back, right buttock, and right leg - Exacerbating factors: Walking, backward flexion - Relieving factors: Previous injections provided temporary relief - Interference: Affects walking, daily functioning and activities and sleep - Affect: Pain impacts mood and daily functioning, disrupts sleep and reduces quality of life, causing frustration - Analgesia: Currently using gabapentin, ibuprofen, baclofen, amitriptyline, and Zepbound - Adverse Effects: Nausea noted with Zepbound - Activities of Daily Living: Pain limits walking and causes weakness, particularly on the right side - Aberrant Drug Related Behaviors: No evidence of misuse or overuse of medications Past Procedures: 06/06/25: Bilateral therapeutic sacroiliac joint injections-100% pain relief for 2 weeks PRIOR: The patient is a 64-year-old female presenting with right and left sacroiliac joint pain. She began experiencing a right-sided pain three months ago without any triggering event, shifting from her chronic left sacroiliac joint pain. Described as more acute on the right side, the pain has limited her sitting capacity and interfered with her sleep. The patient has an extensive history of back issues, including arthritis and spinal stenosis identifiable in past MRIs and experiencing persistent thoracic and lumbar discomfort. Notably, the patient's medical record includes vertiginous symptoms linked to the left ear, creating intense dizziness, especially while laying down. She avoids sitting on her right side due to discomfort. Reports potentially smoking-associated risk factor, consuming a daily pack of cigarettes. The patient supports her pain management with ice and Ibuprofen, along with prescribed gabapentin and baclofen for her back condition. - Onset & Timing: Chronic, flared up 3 months ago, with a shift from left to right sacroiliac joint pain after long driving from vacation. - Quality & Character: Pain in the right hip and buttocks, more severe on the right side but also on the left. - Primary Location: Right >Left SI joint area with positive provocative testing. - Radiation: Bilateral buttocks and lateral hips, occasionally to right groin. - Exacerbating Factors: Sitting or sleeping on the right side worsens the pain. Changing positions, prolonged sitting, driving. - Relieving Factors: Ice application provides some relief. - Interference: Impacts sleep and daily functioning. - Affect: Pain impacts patient's sleep and function, has vertigo affecting stability. - Analgesia: Uses ice, Ibuprofen 800 mg, gabapentin, and baclofen (10 mg TID). - Adverse Effects: No specific adverse effects reported. - Activities of Daily Living: Pain affects sleep and daily activities; avoids right-side sitting. - Aberrant Drug Related Behaviors: None reported. PRIOR 07/21/24: Patient presents today for follow up for chronic low back pain with left sided radicular symptoms and discussion of Nevro Lumbar SCS trial. Patient was last seen in our office one year ago by Dr. Bee. Denies any recent trauma, injury or falls. Patient reports low back pain with radiation of pain into left buttock and left lower extremity but not below knee level with associated numbness and tingling. She also has significant left SIJ pain with positive provocative testing and interested to undergo therapeutic injection as initial steps. Patient denies any fever or chills, abdominal groin pain, weakness, foot drop, bladder bowel dysfunction or saddle anesthesia. PRIOR Dr. Bee 07/29/23: Elizabeth is in my office for the follow-up and further management discussion. I explained to her that since she adamantly refused to go for a surgery the only way to treat her pain I can see as spinal cord stimulator and intrathecal drug delivery system pain pump. I am not sure which spinal cord stimulator in her case will be more efficient so I offered her to have a trial with planned switch during the trial for the other machine. I will place [place] [employer] spinal cord stimulator in and then if she is not satisfied with the Scientific stimulation I will switch it to Nevro. If she likes neither pain pump can be tried today. She decided to sleep on it and read the brochures about [place] [employer] SCS Nevro SCS and [employer] I DDD. She will give us a call about her decision. At her initial visit I also considered sacroiliac joint injection on the left to help her pain however this procedure never happened. Next time she is here we need to discuss the reason why she did not come to the sacroiliac joint injection procedure. Prior: on the phone today discussing the results of the MRI. The dictation of the MRI is as below. 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 We discussed the situation at hands. Obviously this is not a new findings. She had in the past. However to help her condition with the neuromodulation I need to have neurosurgical consult which would deny any surgery on her thoracic spine. After that we can offer her Nevro spinal cord stimulator versus intrathecal drug delivery system pain pump trial. I do not think the weakness of bilateral lower extremities she experiences every day will get better from those to procedures however obviously the pain will be much better as a palliative care. Prior: complain on pain in lower back with radiation into the left lower extremity.? She reports that this pain started in 2019 after a walk her hip gave out and she was barely able to complete that walk.? the pain is productive with frequent exacerbations.?? She was subject of MRI which demonstrated significant spinal stenosis with spinal cord compression at T10-T11 area.? Apparently she went for neurosurgical consult in [place] and she was not recommended to have any surgery however she was not got established with continuous follow-up with any neurosurgeon neither in [place] nor locally, I believe she needs to be under observation.? she had multiple sessions of physical therapy chiropractic manipulations massage therapy and 10s unit she reports that the those were not helpful.? She reports that she had some sort of injection performed for her lumbar spine which was working for 1 year alleviating her pain.? I suspect that was steroid injection [facility] Medical History COPD (chronic obstructive pulmonary disease) Tobacco use disorder Depression Obesity Obstructive sleep apnea Pulmonary nodules Vitamin D deficiency DDD (degenerative disc disease) Thoracic spondylosis Review of Systems Const All systems reviewed & are unremarkable except as noted in HPI and below Physical Exam Vital Signs: Last Vital Signs Pulse 95 10/11/25 10:56 Resp 16 10/11/25 10:56 BP 111/69 10/11/25 10:56 Pulse Ox 98 10/11/25 10:56 Oxygen Delivery Method Room Air 10/11/25 10:56 BMI result Body Mass Index 28.1 General: Appears afebrile. Moderate distress due to pain. Alert and oriented. Mood and affect appropriate. Follows and participates in conversation appropriately. Respiratory effort is unlabored. No cough. Able to transition from sit to stand unassisted. Ambulates with bilaterally normal heel strike and toe off. General: Yes no CVA tenderness Back/Spine/Pelvis Other: Limited lumbar ROM due to pain. Antalgic gait with limping. Uses cane with ambulation. Mild to moderate midline tenderness to palpation in the mid and lower thoracic and lower lumbar regions. Mild to moderate paraspinal tenderness to palpation in the lumbar spine right>left. Lumbar extension and flexion reproduces moderate to severe pain. Mild right groin pain with I/E hip rotations bilaterally. Mak's, Stinchfield, Pelvic compression, Gaenslen tests positive bilaterally. SLR is positive on the left and equivocal on the right. Lasegue test is positive on the left and equivocal on the right. Valsalva maneuver increases her pain. Back: no CVA tenderness Cervical Spine: cervical ROM normal, cervical muscular tenderness, No Cervical spine tenderness and No step off deformity Thoracic/Lumbar Spine: thoracic and lumbar spine normal to inspection, No Thoracic/lumbar spine scar(s), Lasegue's sign positive bilateral and diffuse, pain with thoraco-lumbar ROM, paraspinal muscle tenderness, thoraco-lumbar ROM limited, No thoracic spinal tenderness, lumbar spinal tenderness (L4-S1) and straight leg raise positive bilateral at 40 degrees Pelvis: buttock tenderness on the left Sacroiliac joints: bilaterally tender to palpation Extrem General: Yes capillary refill normal, Yes no clubbing, cyanosis or edema and Yes no calf tenderness Results Reviewed Results Reviewed: MR lumbar spine wo con 08/14/25 Findings: T12-L1: Central disc extrusion, 0.8 cm AP x 1 cm transverse extending cephalad 1.9 cm with ventral impingement on the cord resulting in ttll-fa-xjcxechu central canal stenosis and no significant neural foraminal stenosis. L1-2: Grade 1 retrolisthesis of L1 over L2. L2-3: Grade 1 retrolisthesis of L2 over L3. Minimal broad-based disc bulge with minimal central canal stenosis and mild bilateral neural foraminal stenosis. L3-4: Grade 1 retrolisthesis of the L3 over L4. Broad-based disc bulge and facet arthropathy with mild central canal stenosis moderate left and punr-ds-scapqgff right neural foraminal stenosis with impingement of the exiting left L3 nerve root. L4-5: Broad-based disc bulge and facet arthropathy with impingement of the L5 nerve roots with mild central canal stenosis, moderate right and aofj-mr-lejsterd left neural foraminal stenosis with impingement of the exiting L4 nerve roots. L5-S1: Grade 1 anterolisthesis of L5 over S1. Broad-based disc bulge and facet arthropathy impinging of the S1 nerve roots with no significant central canal stenosis and moderate to severe left and moderate right neural foraminal stenosis with impingement of the exiting L5 nerve roots. No acute fracture or pathologic bone lesion. Cauda equina and conus medullaris within normal limits. Paraspinous musculature intact. The filum terminale at L1-2. IMPRESSION: 1. L5-S1 grade 1 anterolisthesis with moderate to severe left and moderate right neural foraminal stenosis, impinging on exiting L5 nerve roots. 2. T12-L1 central disc extrusion with ventral cord impingement and jmpj-hx-tlkwtbaj central canal stenosis. 3. L4-5 moderate right and bvug-yi-dvqpaaji left neural foraminal stenosis with L4 nerve root impingement bilaterally. 4. L3-4 moderate left and vpsn-sp-ikiokicy right neural foraminal stenosis with left L3 nerve root impingement. Assessment & Plan Assessment & Plan (1) Degeneration, intervertebral disc, thoracic: Code(s): M51.34 - Other intervertebral disc degeneration, thoracic region Category: Medical (2) Herniation of thoracolumbar intervertebral disc: Code(s): M51.25 - Other intervertebral disc displacement, thoracolumbar region Category: Medical (3) Disc degeneration, lumbar: Code(s): M51.36 - Other intervertebral disc degeneration, lumbar region Category: Medical (4) Spinal stenosis, thoracic: Code(s): M48.04 - Spinal stenosis, thoracic region Category: Medical (5) Chronic sacroiliac joint pain: Code(s): M53.3 - Sacrococcygeal disorders, not elsewhere classified; G89.29 - Other chronic pain Category: Medical (6) Chronic pain syndrome: Code(s): G89.4 - Chronic pain syndrome Category: Medical (7) Lumbar radiculopathy, chronic: Code(s): M54.16 - Radiculopathy, lumbar region Category: Medical (8) Lumbosacral spondylosis: Code(s): M47.817 - Spondylosis without myelopathy or radiculopathy, lumbosacral region Category: Medical Plan I will reinstate on the schedule the following injection: Bilateral L5-S1 transforaminal epidural steroid injections with local and fluoroscopy to manage the patient's pain, particularly targeting the most bothersome radicular symptoms which limit her mobility and daily functioning. Last time in the office she was advised to follow up with [facility] to follow up on T12-L1 central disc extrusion with ventral cord impingement and moderate central canal stenosis. Meanwhile I recommended patient to consider spinal cord stimulator to treat her lower back pain. Brochure [employer] is given. The psychological evaluation brochure from [facility] also was given. All questions and concerns have been answered and patient agreed with the treatment plan. Follow up after injections and sooner as needed. Coding Level of Care Code Est Pt Level 3 (84877) Diagnoses Degeneration, intervertebral disc, thoracic M51.34 Herniation of thoracolumbar intervertebral disc M51.25 Disc degeneration, lumbar M51.36 Spinal stenosis, thoracic M48.04 Chronic sacroiliac joint pain M53.3; G89.29 Chronic pain syndrome G89.4 Lumbar radiculopathy, chronic M54.16 Lumbosacral spondylosis M47.817
[2025-10-11 10:56] VITALS: BP 111/69; PULSE 95; RESP 16; O2SAT 98; BMI 28.1
== END 2025-10-11 11:20 | disposition home or self-care (01) ==
LOC: HO.PMC 10:55
PROVIDERS: PCP Internal Medicine; Visit Provider Anesthesiology
DX: M51.34 Other intervertebral disc degeneration, thoracic region (principal); M51.25 Other intervertebral disc displacement, thoracolumbar region; M51.369 Other intervertebral disc degeneration, lumbar region without mention of lumbar back pain or lower extremity pain; M48.04 Spinal stenosis, thoracic region; M53.3 Sacrococcygeal disorders, not elsewhere classified; G89.29 Other chronic pain; G89.4 Chronic pain syndrome; M54.16 Radiculopathy, lumbar region; M47.817 Spondylosis without myelopathy or radiculopathy, lumbosacral region
CPT/HCPCS: 99213

== ENCOUNTER → 2025-10-11 10:54 | Outpatient (BNVA) | payer OTHER, SELFPAY | PROVIDERS: PCP Internal Medicine; Visit Provider Anesthesiology | DX: M48.04 Spinal stenosis, thoracic region (principal); M53.3 Sacrococcygeal disorders, not elsewhere classified; G89.4 Chronic pain syndrome; M51.34 Other intervertebral disc degeneration, thoracic region; M51.25 Other intervertebral disc displacement, thoracolumbar region; M47.817 Spondylosis without myelopathy or radiculopathy, lumbosacral region; M54.16 Radiculopathy, lumbar region | CPT/HCPCS: 99212 ==

== ENCOUNTER 2025-10-17 06:50 | Outpatient (REF) | payer OTHER, SELFPAY ==
--- NOTE | ~2025-10-17 | FL_ITS ---
EXAMINATION: FLUOROSCOPY GUIDANCE FOR NEEDLE PLACEMENT CLINICAL INFORMATION: M54.16 - Radiculopathy, lumbar region COMPARISON: Lumbar spine MRI July 2025 TECHNIQUE: Fluoroscopy guidance for pain management procedure. FINDINGS: 4 fluoroscopic images demonstrate needle placement and contrast injection adjacent to the bilateral lateral L5 vertebrae. See procedure note for detailed findings. FLUOROSCOPY TIME: 59 seconds DOSE AREA PRODUCT: [id number] mGy-cm2 FL/FL guidance in treatment room IMPRESSION: Fluoroscopy guidance for pain management procedure. Electronically signed by: Jenni Aguilar MD 10/17/2025 01:07 PM [facility]EL
--- OUTSIDE RECORDS SUMMARY | 2025-10-17 06:53 | XMS_ITS | Encounter Summary ---
Author Organization [employer] Address [address] [place] [address] Care Team Providers Care Agency Sales Development Associate Name Role Phone Keyona Mills MD Primary Care Provider [phone] Reason for Visit * Reason Onset Date Comments COPD 10/25/2024 Encounter Details Date Type Department Care Team (Late st Contact Info) Description 10/25/2024 Nurse Triage Adult Medicine [facility] [address] [place] [phone] Keyona Mills MD [address] [place] [address] Social History Tobacco Use Types Packs/Day Years [...] exposures) No Protocols used: Cough - Acute Nkhukbrkzu-S-FN * Bill Marshall - 10/25/2024 9:04 AM [...] to another state outside of [place], [place], [place], [place], [place], [place], [place]? no o If yes, did you quarantine [...] of accident/Injury: No If yes, gather 3rd green party insurance information Third Constitution Party Information: not applicable PCP: Keyona iMlls MD Payor: [employer] / Plan: [employer]AN / Product Type: *No Product type* / documented in this encounter Plan of Treatment Upcoming Encounters Date Type Department Care Team (Late st Contact Info) Description 11/01/2025 2:00 PM EST Ancillary Procedure Pulmonology - [address] [place] [address] 11/01/2025 2:45 PM EST Office Visit Pulmonology - [place] [address] [place] [phone] Payal Yoon MD [address] [place] [phone] 11/08/2025 2:30 PM EST Office Visit Adult Medicine [facility] [address] [place] [phone] Keyona Mills MD [address] [place] [address] documented as of this encounter Visit Diagnoses Not on filedocumented in this encounter Care Teams Agency Sales Development Associate Relationship Specialty Start Date End Date Keyona Mills MD [address] [place] [phone] PCP - General Internal Medicine 08/10/20 documented as of this encounter
--- OUTSIDE RECORDS SUMMARY | 2025-10-17 06:53 | XMS_ITS | Clinical Summary ---
Author Organization [facility] Address [address] [place] [address] Care Team Providers Care Plastic Straightening Roll Operator Name Role Phone Unavailable Primary Care Provider [...]
--- OUTSIDE RECORDS SUMMARY | 2025-10-17 06:53 | XMS_ITS | Clinical Summary ---
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 Role Phone Keyona Mills MD Primary Care Provider [phone] Allergies Active Allergy Reactions Criticality Noted Date [...] COPD type ([facility] V24, [facility] V28) Take 3 mL (2.5 mg total) [...] ons:Chronic obstructive pulmonary disease, unspecified COPD type ([facility] V24, [facility] V28) Inhale 1 puff (100 mcg total) [...] ns:Chronic obstructive pulmonary disease with acute exacerbation ([facility] V24, [facility] V28),Obstructiv e sleep apnea,Hypothyro idism, unspecified type,Class [...] breakfast. 90 tablet 1 025 2025 Active simvastatin (ZOCOR) 40 mg tablet Take 1 tablet (40 mg total) by mouth at bedtime. 90 each 1 Active sertraline (ZOLOFT) 100 mg tabletIndicatio ns:Severe obesity due to excess calories with serious comorbidity and body mass index (BMI) 120% of 95th percentile to less than 140% of 95th percentile for age in pediatric p* ([facility] V24, [facility] V28),Prediabete s Take 2 Tablets by mouth daily. 180 each 1 Active gabapentin (NEURONTIN) 300 mg capsule TAKE 1 CAPSULE BY MOUTH THREE TIMES A DAY 270 capsule 1 Active tirzepatide, weight loss, (Zepbound) 12.5 mg/0.5 mL injection Inject 0.5 mL (12.5 mg total) under the skin every 7 (seven) days. 2 mL 025 2024 Active gabapentin (NEURONTIN) 300 mg capsule Take [...] pediatric p* ([facility] V24, [facility] V28),Prediabete s Take 2 Tablets by mouth daily. 180 each 1 025 2024 Discontinued(R eorder) tirzepatide, weight loss, (Zepbound) 10 mg/0.5 mL injection Inject 0.5 mL (10 mg total) under the skin every 7 (seven) days. 2 mL 025 2024 Active Problems Problem Noted Date Diagnosed Date [...] program Obstructive sleep apnea 10/12/2018 Overview (09/28/2024): [facility] Home Polysomnogram: Date 10/06/2018; AHI 13, [...] lmonary disease) ([facility] V24, [facility] V28) 10/31/2013 Overview (09/28/2024): emphysema by low [...] Encounters Date Type Department Care Team Description 10/09/2025 8:48 AM EST - 10/09/2025 11:59 PM [facility] Hospital Encounter [facility] CT Scan [address] [place] [phone] Cigarette smoker; Encounter for screening for lung cancer Discharge Disposition: Home or Self Care 09/20/2025 Telephone Adult Medicine [address] [phone] Keyona Mills MD 08/18/2025 Telephone Lung Screening Program - [place] [address] [phone] Mary Eastman [place] 08/09/2025 10:00 AM EDT Office Visit Adult Medicine [address] [phone] Deangelo Johns, TRACK MAN Chronic obstructive pulmonary disease with acute exacerbation (CMS/HCC V24, CMS/HCC V28) (Primary Dx); Obstructive sleep apnea; Hypothyroidism, unspecified type; Class 1 obesity with serious comorbidity and body mass index (BMI) of 33.0 to 33.9 in adult, unspecified obesity type; Mixed hyperlipidemia; Gastroesophageal reflux disease, unspecified whether esophagitis present; Depression, unspecified depression type; Prediabetes; Need for prophylactic vaccination and inoculation against influenza from Last 3 Months Immunizations Immunization Administration Dates Next Due Pneumococcal conjugate 20 va lent (Prevnar 20, PCV 20) 2mo and older 03/27/2023 Td Tetanus diptheria (Tdvax) 7yo and older 05/09 Tdap Tetanus diptheria acell ular pertussis (Boostrix; Adacel) 7yo and older 06/17/2023 Surgical History Surgery Date Site/Laterality Comments TONSILLECTOMY PROCEDURE: HISTORICAL TONSILLECTOMY BUNIONECTOMY PROCEDURE: UT CORRJ HLX VLGS BNCTY SESMDC W/DOUBLE OSTEOTOMY HYSTERECTOMY PROCEDURE: HISTORICAL HYSTERECTOMY; COMMENT: endometriosis COLONOSCOPY 2004 PROCEDURE: UT COLONOSCOPY STOMA DX INCLUDING COLLJ SPEC SPX; COMMENT: Up to cecum, well prepared. by Dr. Perez COLONOSCOPY 07/25/08 PROCEDURE: UT COLONOSCOPY STOMA DX INCLUDING COLLJ SPEC SPX; [...] hysterectomy 1995, Dr. Angelica Cortes 08/18/2007 DX:Bunion; KAYCEEE NT: bunionectomy 1993 Disorder of bone and [...] for your loved ones. For example, children's entertainer or elderly care for an older adult? [...] 2:00 PM EST Ancillary Procedure Pulmonology - [address] [phone] 11/01/2025 2:45 PM EST Office Visit Pulmonology [address] [phone] Payal Yoon MD [address] [place] [phone] 11/08/2025 2:30 PM EST Office Visit Adult Medicine [address] [phone] Keyona Mills MD [address] [place] [address] Health Maintenance Due Date Last Done Comments [...] pediatric p* ([facility] V24, [facility] V28) Prediabetes Chronic obstructive pulmonary disease with acute exacerbation ([facility] V24, [facility] V28) Obstructive sleep apnea Hypothyroidism, unspecified type Mixed hyperlipidemia Need for prophylactic vaccination and inoculation against influenza COMPREHENSIVE METABOLIC PANEL Routine 08/09/2025 10:53 AM EDT Severe obesity due to excess calories with serious comorbidity and body mass index (BMI) 120% of 95th percentile to less than 140% of 95th percentile for age in pediatric p* ([facility] V24, [facility] V28) Prediabetes Chronic obstructive pulmonary disease with acute exacerbation ([facility] V24, [facility] V28) Obstructive sleep apnea Hypothyroidism, unspecified type Mixed hyperlipidemia Need for prophylactic vaccination and inoculation against influenza HEMOGLOBIN A1C Routine 08/09/2025 10:53 AM EDT Severe obesity due to excess calories with serious comorbidity and body mass index (BMI) 120% of 95th percentile to less than 140% of 95th percentile for age in pediatric p* ([facility] V24, [facility] V28) Prediabetes Chronic obstructive pulmonary disease with acute exacerbation ([facility] V24, [facility] V28) Obstructive sleep apnea Hypothyroidism, unspecified type Mixed hyperlipidemia Need for prophylactic vaccination and inoculation against influenza CBC AND DIFFERENTIAL Routine 08/09/2025 10:53 AM EDT Severe obesity due to excess calories with serious comorbidity and body mass index (BMI) 120% of 95th percentile to less than 140% of 95th percentile for age in pediatric p* ([facility] V24, [facility] V28) Prediabetes Chronic obstructive pulmonary disease with acute exacerbation ([facility] V24, [facility] V28) Obstructive sleep apnea Hypothyroidism, unspecified type [...] LAB HEMETOLOGY METHOD 08/09/2025 2:07 PM EDT [facility] RBC 4.60 3.80 - 4.80 M/mcL LAB HEMETOLOGY METHOD 08/09/2025 2:07 PM EDT [facility] Hemoglobin 14.9 11.5 - 16.0 g/dL LAB HEMETOLOGY METHOD 08/09/2025 2:[facility] Hematocrit 44.6 35.0 - 47.0 % LAB HEMETOLOGY METHOD 08/09/2025 2:07 PM EDT [facility] MCV 96.7 79.0 - 98.0 FL LAB HEMETOLOGY METHOD 08/09/2025 2:07 PM EDT [facility] MCH 32.3(H) 27.0 - 32.0 pcg LAB HEMETOLOGY METHOD 08/09/2025 2:07 PM [facility] MCHC 33.4 32.0 - 37.0 g/dL LAB HEMETOLOGY METHOD 08/09/2025 2:07 PM [facility] RDW 13.7 11.0 - 15.0 % LAB HEMETOLOGY METHOD 08/09/2025 2:07 PM [facility] Platelets 348 130 - 400 K/mcL LAB HEMETOLOGY METHOD 08/09/2025 2:07 PM [facility] MPV 9.7 7.0 - 11.0 FL LAB HEMETOLOGY METHOD 08/09/2025 2:07 PM [facility] NRBC 0.0 <1.0 % LAB HEMETOLOGY METHOD 08/09/2025 2:07 PM [facility] NRBC Absolute 0.00 <0.10 K/mcL LAB HEMETOLOGY METHOD 08/09/2025 2:07 PM [facility] Neutrophils Relative 57.2 % LAB HEMETOLOGY METHOD 08/09/2025 2:07 PM [facility] Lymphocytes Relative 34.8 % LAB HEMETOLOGY METHOD 08/09/2025 2:07 PM [facility] Monocytes Relative 5.4 % LAB HEMETOLOGY METHOD 08/09/2025 2:07 PM [facility] Eosinophils Relative 1.5 % LAB HEMETOLOGY METHOD 08/09/2025 2:07 PM [facility] Basophils Relative 0.7 % LAB HEMETOLOGY METHOD 08/09/2025 2:07 PM [facility] Immature Granulocytes Relative 0.4 % LAB HEMETOLOGY METHOD 08/09/2025 2:07 PM [facility] Neutrophils Absolute 7.76(H) 1.50 - 7.00 K/mcL LAB HEMETOLOGY METHOD 08/09/2025 2:07 PM [facility] Lymphocytes Absolute 4.73 1.00 - 5.00 K/mcL LAB HEMETOLOGY METHOD 08/09/2025 2:07 PM EDT [facility] Monocytes Absolute 0.73 0.20 - 1.00 K/[facility] LAB HEMETOLOGY METHOD 08/09/2025 2:07 PM EDT [facility] Eosinophils Absolute 0.21 0.00 - 0.50 K/mcL LAB HEMETOLOGY METHOD 08/09/2025 2:07 PM EDT [facility] Basophils Absolute 0.10 0.00 - 0.20 K/[facility] LAB HEMETOLOGY METHOD 08/09/2025 2:07 PM EDT [facility] Immature Granulocytes Absolute 0.06(H) 0.00 - 0.03 K/[facility] LAB HEMETOLOGY METHOD 08/09/2025 2:07 PM EDT [facility] Blood Venous blood specimen / Unknown Venipuncture / Unknown 08/09/2025 10:53 AM EDT 08/09/2025 10:53 AM EDT Deangelo Johns TRACK MAN LAB BLOOD ORDERABLES Final R esult Performing Organization Address City/[facility] Co de Phone Number [facility] [address] [place] [address], * Hemoglobin A1c (08/09/2025 10:53 AM EDT) Hemoglobin A1C 5.2 <6.5 % LAB CHEMISTRY METHOD 08/09/2025 2:28 PM EDT [facility] Mean Bld Glu Estim. 103 mg/dL LAB CHEMISTRY METHOD 08/09/2025 2:28 PM EDT [facility] Blood Venous blood specimen / Unknown Venipuncture / Unknown 08/09/2025 10:53 AM EDT 08/09/2025 10:53 AM EDT Deangelo Johns TRACK MAN LAB BLOOD ORDERABLES Final R esult [facility] [address] [place] [address], [place] [phone] * Comprehensive metabolic panel (08/09/2025 10:53 AM EDT) Sodium 140 133 - 145 mmol/L LAB CHEMISTRY METHOD 08/09/2025 4:20 PM EDT [facility] Potassium 4.0 3.5 - 5.5 mmol/L LAB CHEMISTRY METHOD 08/09/2025 4:20 PM EDT [facility] Chloride 104 96 - 110 mmol/L LAB CHEMISTRY METHOD 08/09/2025 4:20 PM [facility] CO2 31 21 - 32 mmol/L LAB CHEMISTRY METHOD 08/09/2025 4:20 PM [facility] Anion Gap 5 3 - 11 LAB CHEMISTRY METHOD 08/09/2025 4:20 PM [facility] Glucose 74 70 - 100 mg/dL LAB CHEMISTRY METHOD 08/09/2025 4:20 PM [facility] BUN 8 5 - 25 mg/dL LAB CHEMISTRY METHOD 08/09/2025 4:20 PM [facility] Creatinine 0.56 0.50 - 1.10 mg/dL LAB CHEMISTRY METHOD 08/09/2025 4:20 PM [facility] eGFR 102 >=60 mL/min/1. 73m2 LAB CHEMISTRY METHOD 08/09/2025 4:20 PM [facility] Comment:Calculation based on the Chronic Kidney Disease Epidemiology Collaboration (CKD-EPI) equation refit without adjustment for race. BUN/Creatinine Ratio 14.3 LAB CHEMISTRY METHOD 08/09/2025 4:20 PM [facility] Calcium 9.4 8.5 - 10.5 mg/dL LAB CHEMISTRY METHOD 08/09/2025 4:20 PM [facility] AST (SGOT) 16 10 - 42 unit/L LAB CHEMISTRY METHOD 08/09/2025 4:20 PM EDT [facility] ALT (SGPT) 12 10 - 60 unit/L LAB CHEMISTRY METHOD 08/09/2025 4:20 PM EDT [facility] Alkaline Phosphatase 74 42 - 121 unit/L LAB CHEMISTRY METHOD 08/09/2025 4:20 PM EDT [facility] Total Protein 7.0 6.0 - 8.0 g/dL LAB CHEMISTRY METHOD 08/09/2025 4:20 PM EDT [facility] Albumin 3.7 3.2 - 5.0 g/dL LAB CHEMISTRY METHOD 08/09/2025 4:20 PM EDT [facility] Total Bilirubin 0.4 0.0 - 1.4 mg/dL LAB CHEMISTRY METHOD 08/09/2025 4:20 PM T [facility] Blood Venous blood specimen / Unknown Venipuncture / Unknown 08/09/2025 10:53 AM EDT 08/09/2025 10:53 AM EDT us Deangelo Johns TRACK MAN LAB BLOOD ORDERABLES Final R esult [facility] [address] [place] [address], * (ABNORMAL) Lipid panel with reflex to direct LDL (03/28/2025 1:49 PM EDT) Cholesterol 179 0 - 200 mg/dL LAB CHEMISTRY METHOD 03/28/2025 4:33 PM EDT [facility] Triglycerides 95 0 - 150 mg/dL LAB CHEMISTRY METHOD 03/28/2025 4:33 PM EDT [facility] HDL 57 >=40 mg/dL LAB CHEMISTRY METHOD 03/28/2025 4:33 PM EDT [facility] LDL Calculated 103(H) 0 - 100 mg/dL LAB CHEMISTRY METHOD 03/28/2025 4:33 PM EDT [facility] VLDL Cholesterol Iglesia 19 mg/dL LAB CHEMISTRY METHOD 03/28/2025 4:33 PM EDT [facility] Non HDL Chol. (LDL+VLDL) 122 <145 mg/dL LAB CHEMISTRY METHOD 03/28/2025 4:33 PM EDT [facility] Chol/HDL Ratio 3.1 0.0 - 4.4 LAB CHEMISTRY METHOD 03/28/2025 4:33 PM EDT [facility] Blood Venous blood specimen / Unknown Venipuncture / Unknown 03/28/2025 1:49 PM EDT 03/28/2025 1:49 PM EDT us Jeremy SIMMONS LAB BLOOD ORDERABLES Fin al Result [facility] [address] [place] [address], * CT LUNG SCREENING LOW DOSE (09/06/2024 3:01 PM EDT) Anatomical Region Laterality Modality Computed Tomogra phy 09/06/2024 1:34 PM EDT Narrative 09/06/2024 3:01 PM EDT [facility] Diagnostic Imaging Department [address] [place] [address] Patient: LIZETH LOPES.O.B./Age/Sex: 1960 - 64 - F Unit#: [id number] Location/Status: SPDICATLS/REG CLI Mnemonic/Ordering Site: [facility] Ordering Physician: MICHAEL JOE MD CT Lung [...] Procedure Note Gilbert Jenkins MD - 09/13/2024 [facility] Diagnostic Imaging Department [address] [place] [id number] Patient: LIZETH LOPES /Age/Sex: 1960 - 64 - F Unit#: [id number] Location/Status: SPDICATLS/REG CLI Mnemonic/Ordering Site: [facility] Ordering Physician: MICHAEL JOE MD CT Lung [...] Maintenance 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
== END 2025-10-17 06:51 | disposition home or self-care (01) ==
LOC: CF 06:50
PROVIDERS: Visit Provider Anesthesiology
DX: M54.16 Radiculopathy, lumbar region (principal)
CPT/HCPCS: 64483; J2003; J3301; Q9967

== ENCOUNTER 2025-10-17 08:44 | Outpatient (AMB) | payer OTHER, SELFPAY ==
[2025-10-17 08:53] VITALS: BP 115/62; PULSE 97; RESP 16; O2SAT 96; BMI 28.1
--- NOTE | 2025-10-17 08:53 | A.OFFVIS_ITS ---
Vital Signs 10/17/25 08:53 10/17/25 09:53 Height 5 ft 5 in Weight 169 lb BMI 28.1 BP 115/62 111/73 Blood Pressure Location Rt brachial Lt brachial Position Sitting Sitting Respiration 16 16 Pulse 97 88 Pulse Source Pulse Oximeter Pulse Oximeter Pulse Oximetry (%) 96 95 Oxygen Delivery Method Room Air Room Air Intake Visit Reasons: Bilateral L5-S1 TFESI Allergies nut - unspecified (nut) Allergy (Severe, Verified 10/11/25 10:56) ANAPHYLAXIS cephradine (From VELOSEF) Allergy (Unknown, Verified 10/11/25 10:56) HIVES egg (EGGS) Adverse Reaction (Unknown, Verified 10/11/25 10:56) NAUSEA & VOMITING prochlorperazine (From COMPAZINE) Adverse Reaction (Unknown, Verified 10/11/25 10:56) CONVULSIONS [facility] Medical History COPD (chronic obstructive pulmonary disease) Tobacco use disorder Depression Obesity Obstructive sleep apnea Pulmonary nodules Vitamin D deficiency DDD (degenerative disc disease) Thoracic spondylosis Physical Exam Vital Signs: Last Vital Signs Pulse 88 10/17/25 09:53 Resp 16 10/17/25 09:53 BP 111/73 10/17/25 09:53 Pulse Ox 95 10/17/25 09:53 Oxygen Delivery Method Room Air 10/17/25 09:53 BMI result Body Mass Index 28.1 Assessment & Plan Assessment & Plan (1) Radiculopathy, lumbar region: Code(s): M54.16 - Radiculopathy, lumbar region Category: Medical Plan Bilateral transforaminal L5-S1 epidural steroid injection. Informed consent were thoroughly explained to the patient and risks and benefits were explained. The risks were low delineated as bleeding, infection, peripheral nerve damage, spinal cord damage, headache. Patient expressed understanding. The patient came to the operating room, she was positioned prone on the operating table with her lower back exposed. Time-out was performed delineating name and date of with the patient nature of the procedure. The lower back of the patient was prepped with ChloraPrep and draped posterior L self-adhesive utility towels. C-arm was brought over the operating field and square picture of the L5 vertebra was delineated on the screen. The procedure was started on the right. Initially point of interest was delineated as the lateral border of the right superior articular process of S1. Protection of the point of interest the skin was injected with small amount of lidocaine 1% forming a skin wheal. After that 22 gauge 5 in spinal needle was inserted through the skin wheal and was advanced toward the right L5-S1 foramina on intermittent anterior posterior and oblique views. When tip of the needle gently contacted the lateral border of the SAP S1 on the right the needle was deviated slightly lateral, advanced 3 mm deeper and deviated slightly medial. After that the position of the C-arm was turned into squared image and needle was positioned in the projection of the silhouette of the spinal column. However injection of the contrast this area resulted in severe pain radiating down the right leg over the patient, perineural spread of the contrast was noted without epidural spread. The decision was made to change the position of the needle to infraclavicular approach. The needle was withdrawn then C-arm was turned into the oblique position again. 2 mm below the level of the lowest point of the right L5 pedicle projection to the skin skin was infiltrated with the same solution of lidocaine. 22 gauge 5 in needle was inserted through the skin wheal and advanced toward the L5 projection of the pedicle. When tip of the needle gently contacted the bone it was deviated slightly inferior and advanced toward the foramina. The injection of the contrast was performed when eating perineural spread of the contrast. Spread of the contrast into the epidural space also was noted. The patient again reported pain radiating down to the right lower extremity however it was not as intense as it was before. Patient has very severe foraminal stenosis. Injection of the 2 cc of the lidocaine 1% mixed with Kenalog 40 mg was performed into the area. After that needle was removed and attention was concentrated on the left side. The lowest point of the Left pedicle of L5 on the oblique view was chosen as the target of the needle advancement. The procedure after that was mirrored every the intrapedicular procedure on the right. When tip of the needle was positioned appropriately injection of the contrast was performed and this delineated the epidural and perineural spread of the contrast. Injection of the 2 cc of lidocaine 1% mixed with Kenalog 40 mg was performed into the needle. After that needle was withdrawn and Band-Aid was applied. Patient was taken outside of the operating room to recovery room where she recovered uneventfully. She reported appropriate numbness involving lower extremities. Coding Level of Care Code Procedure Only Diagnoses Radiculopathy, lumbar region M54.16
[2025-10-17 09:53] VITALS: BP 111/73; PULSE 88; RESP 16; O2SAT 95
== END 2025-10-17 09:45 | disposition home or self-care (01) ==
LOC: HO.PMCPRC 08:44
PROVIDERS: PCP Internal Medicine; Visit Provider Anesthesiology
DX: M54.16 Radiculopathy, lumbar region (principal)
CPT/HCPCS: 64483

== ENCOUNTER 2025-11-15 14:21 | Outpatient (AMB) | payer OTHER, SELFPAY ==
--- OUTSIDE RECORDS SUMMARY | 2024-09-12 10:00 | XMS_ITS ---
Author Organization [facility] Address [address] [place] [address] Care Team Providers Care Client Services Account Manager Name Role Phone Lina PLEITEZ, Keyona Reynoso Primary Care Provider Unav ailable Gregoria Doss Unavailable [phone] Encounters Encounter Location Date Provider Diagnosis [facility] [address] [place] [address] 09/12/2024 Gregoria Doss Plan Of Treatment Next Appt Details Provider Name:Gregoria Doss , 04/24/2026 11:00:00 AM, [address] [place], [address], Progress Notes * Elizabeth CHU MDOB: [birth year] (65 yo F)Acc No.[id number]:09/12/2024 Progress Note Patient: Porfirio MEJIA Elizabeth Monroy Provider: Keiry Doss DPM :1960 A ge:64 Y S ex:Female Date:09/12/2024 Address:[address] [id number] Pcp:Keyona Mills MD Subjective: * Chief Complaints: * * Medical History: Objective: * Vitals: Assessment: Plan: * Treatment: * Images: * The named appointment provid er may or may not be the originator of this progress note, and it is not deemed complete until electronically signed by the appointment provider. Sign off status: Pending * Provider: Keiry Doss DPM Date: Generated for Dmitry gleason/Elizabeth/Dalton on: 1 03:30 PM EST
--- OUTSIDE RECORDS SUMMARY | 2025-11-13 23:59 | XMS_ITS | Continuity of Care Document ---
Author Organization [facility] Address [address] [place] [address]- Care Team Providers Care Pulmonologist Intensivist Name Role Phone Edgardo Dial MD Primary Care Physician Unavai lable Encounter 11/06/25 - 11/13/25 [facility] [address], [address] [place] [address]- Attending Physician: Jeremy Macdonald Admitting Physician: Jeremy Macdonald Referring Physician: Jeremy Macdonald Encounter Type: OutPatient One Time Allergies, Adverse Reactions, Alerts Substance Criticality Severity Reaction Reaction Severity Status Velosef Hives Active Compazine Jaw locked and muscles stiffened up Active Contrast Dye Hives Active Immunizations Given and Recorded Vaccine Date Status Refusal Reason tetanus-diphtheria toxoids (Td) 11/16/01 Given Medications Albuterol (Eqv-ProAir HFA) 90 mcg/inh inhalation aerosol 2 puffs, Inhalation, Every 6 hours, 0 Refills, Maintenance, 05/13/23 9:10:00 AM EDT, Partial fill upon patient request if the prescription is for a schedule II opioid drug. Start Date: 05/13/23 Status: Ordered Medication Dispense Status: Completed Total Allowed Fills: 1 Fills Dispensed: 0 Baclofen = 10 mg, By Mouth, 3 times a day, 0 Refills, Maintenance, 05/13/23 9:07:00 AM EDT, Partial fill uponpatient request if the prescription is for a schedule II opioid drug. Start Date: 05/13/23 Status: Ordered Medication Dispense Status: Completed Total Allowed Fills: 1 Fills Dispensed: 0 calcium and vitamin D combination 500 mg-200 iu oral tablet 1, tablet, By Mouth, 2 times a day, 0 Refills Start Date: 03/06/06 Status: Ordered Medication Dispense Status: Completed Total Allowed Fills: 1 Fills Dispensed: 0 Elavil 75 mg oral tablet 75 mg, 1, tablet, By Mouth, Daily at bedtime, # 90 tablet, 3 Refills Start Date: 07/08/07 Stop Date: 07/02/08 Status: Ordered Medication Dispense Status: Completed Quantity: 90.0 Unit: tablet Total Allowed Fills: 4 Fills Dispensed: 0 Flonase 0.05 mg/inh nasal spray 1, sprays, Nasal, 2 times a day, in each nostril, # 16 Gm, 2 Refills Start Date: 02/04/07 Stop Date: 02/25/07 Status: Ordered Medication Dispense Status: Completed Quantity: 16.0 Unit: g Total Allowed Fills: 3 Fills Dispensed: 0 fluticasone 100 mcg/inh inhalation powder 1 puffs, Inhalation, Daily in AM, # 60 each, 0 Refills, Maintenance, 05/13/23 9:09:00 AM EDT, Powder, Partial fill upon patient request if the prescription is for a schedule II opioid drug. Start Date: 05/13/23 Status: Ordered Medication Dispense Status: Completed Quantity: 60.0 Unit: each Total Allowed Fills: 1 Fills Dispensed: 0 gabapentin 300 mg oral capsule 300 mg, 1, capsule, By Mouth, 3 times a day, # 270 capsule, Refills 0, Maintenance, 05/13/23 9:07:00AM EDT, Partial fill upon patient request if the prescription is for a schedule II opioid drug. Start Date: 05/13/23 Status: Ordered Medication Dispense Status: Completed Quantity: 270.0 Unit: capsule Total Allowed Fills: 1 Fills Dispensed: 0 pantoprazole 40 mg oral delayed release tablet 1 tablet = 40 mg, By Mouth, Daily in AM, # 30 tablet, 0 Refills, Maintenance, 05/13/23 9:04:00 AM EDT, EC Tablet Start Date: 05/13/23 Status: Ordered Medication Dispense Status: Completed Quantity: 30.0 Unit: tablet Total Allowed Fills: 1 Fills Dispensed: 0 sertraline 100 mg oral tablet 1 tablet = 100 mg, By Mouth, Daily in AM, # 30 tablet, 0 Refills, Maintenance, 05/13/23 9:08:00 AM EDT, Tablet, Partial fill upon patient request if the prescription is for a schedule II opioid drug. Start Date: 05/13/23 Status: Ordered Medication Dispense Status: Completed Quantity: 30.0 Unit: tablet Total Allowed Fills: 1 Fills Dispensed: 0 Synthroid 0.125 mg oral tablet 0.125 mg, 1, tablet, By Mouth, Daily, # 30 tablet, 11 Refills Start Date: 05/11/07 Stop Date: 04/30/09 Status: Ordered Medication Dispense Status: Completed Quantity: 30.0 Unit: tablet Total Allowed Fills: 24 Fills Dispensed: 0 Tylenol Extra Strength PM 500 mg-25 mg oral tablet 2 tablet, By Mouth, Daily at bedtime, PRN for pain, # 10 tablet, 0 Refills, Maintenance, 05/13/23 9:12:00 AM EDT, Tablet, Partial fill upon patient request if the prescription is for a schedule II opioid drug. Start Date: 05/13/23 Status: Ordered Medication Dispense Status: Completed Quantity: 10.0 Unit: tablet Total Allowed Fills: 1 Fills Dispensed: 0 Zocor 40 mg oral tablet 40 mg, 1, tablet, By Mouth, Daily, # 90 tablet, 3 Refills Start Date: 01/05/07 Stop Date: 04/05/07 Status: Ordered Medication Dispense Status: Completed Quantity: 90.0 Unit: tablet Total Allowed Fills: 4 Fills Dispensed: 0 Problem List Condition Confirmation Course Effective Dates Status Health Status Informant Abnormal radiographic examination Confirmed Active Endometriosis (clinical) Confirmed Active Fibromyalgia Confirmed Active Gastroesophageal reflux disease with hiatal hernia Confirmed Active Hypercholesterolemia Confirmed Active Hypothyroid Confirmed Active Irritable bowel syndrome Confirmed Active Osteopenia Confirmed Active Severe obesity (BMI 35.0-39.9) with comorbidity Confirmed Active Results Radiology Reports * Exam Date Time Procedure Performing Provider Status 11/06/25 2:29 PM MM Digital Mammo Screening Auth (Verified) Notes: (MM Digital Mammo Screening) Reason For Exam: Z12.31 SCREENING RESULT: MM Digital Mammo Screening PROCEDURE: MM Digital Mammo Screening INDICATION: Screening for breast cancer. No known palpable abnormalities. COMPARISON: Multiple prior studies dating back to TECHNIQUE: Full-field digital CC and MLO 3D tomosynthesis images of both breasts were acquired. Computer-aided detection (CAD) was utilized in the interpretation of this study. DENSITY: There are scattered areas of fibroglandular density. FINDINGS: No new masses, suspicious microcalcifications, or areas of architectural distortion are seen to suggest malignancy. There is no significant interval change. IMPRESSION: No mammographic evidence of malignancy. RECOMMENDATION: Annual mammographic screening. BI-RADS: 1 (Negative) Lay letter mailed to patient WSN: [id number] Ordering Physician: Jeremy Delgadillo Dictated By: Salvatore Braswell MD Dictated Date/Time: 11/07/25 9:23 am Reviewed By: Salvatore Braswell MD Signed By: Salvatore Braswell MD Signed Date/Time: 11/07/25 9:23 am Transcribed By: MAITE Mma Fighter Date/Time: 11/07/25 9:17 am Birads: Social History Social History Type Response Sex Sex Representation Female (finding) Implantable Device List Procedure Provider Procedure Date Device Type Site Cystoscopy with Retropubic Midurethral S Skylar Villafana DO 05/14/23 Unknown Vagina Device Identifier Serial Number Lot or Batch Number Manufacturing Date Expiration Date Distinct Identification Code MRI Safety Implantable Status Assigning Authority Unknown [id number] Unknown 03/16/26 Unknown Unknown Active Unknown Patient Care team information Care Team Personnel Name: Edgardo Dial MD Position: S Physician (General Medicine) Member Role: PCP Care Team Related Persons Name: ALOK LOPES Insurance Providers Guarantor name: LIZETH LOPES Health Plan Information #: 1 Payer: [facility] Payer Identifier: NA Member Number: [id number] Group Number: [id number] Subscriber Identifier: [id number] Relationship to Subscriber: self Coverage Type: Other specified but not otherwise classifiable (includes Hospice - Unspecified plan) Coverage Verification Date: NA Telecom: NA Address: [facility] Information #: 2 Payer: MEDICARE B Payer Identifier: NA Member Number: [id number] Group Number: [id number] Subscriber Identifier: [id number] Relationship to Subscriber: self Coverage Type: MEDICARE Coverage Verification Date: NA Telecom: NA Address:
[2025-11-15 14:23] VITALS: BP 123/79; PULSE 98; RESP 16; O2SAT 99; BMI 27.0
--- NOTE | 2025-11-15 14:23 | MHC.OFFVIS ---
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 She reports 80% pain relief. She reports better mobility, better activities of daily living better social interactions. I explained to the patient that if pain relief lasts longer than 3 months we can repeat the procedure. Patient is leaving for [place]. She will be back in March. At that time she will give us a call and schedule appointment with me if she needs another injection. Prior: The patient is a 65-year-old female presenting with back pain radiating to the legs. The pain initially affected the right leg but has now progressed to involve both legs, with pain in the front of the thighs and the back of the legs. She also continues to endorse persistent mid back pain with daily activities. The patient reports that the pain is consistent with the findings of the recent MRI, which shows multilevel involvement. The MRI findings indicate lumbar spinal stenosis with moderate to severe stenosis at L5-S1, where there is a first-degree spondylolisthesis. There is also central disc extrusion, 0.8 cm AP x 1 cm transverse extending cephalad 1.9 cm with ventral impingement on the cord resulting in [id number]-[id number] central canal stenosis and no significant neural foraminal stenosis. There is also evidence of multilevel disc bulges and facet arthropathy, contributing to the patient's symptoms. The patient has not experienced any falls or instability. She uses cane with ambulation and concern for increased pain during upcoming trip overseas and prolonged plane ride and walking. The patient denies taking any consistent pain medications recently, although she has used ibuprofen in the past. She reports a pain level of 5/10 today and has occasionally been taking Tylenol. Denies any recent cough, cold, infection, fever or any significant changes in medical history since last office visit. - Pain radiates from the back to both legs, initially affecting the right leg and now involving both legs. - Pain is located in the front of the thighs and the back of the legs. - Pain level is reported as 5/10 today. - Pain interferes with daily activities such as walking and bending down. - Analgesia: Current pain level is 5/10; no consistent use of pain medications reported recently. - Activities of Daily Living: Pain limits daily activities such as walking and bending. PRIOR: The patient is a 64-year-old female presenting with chronic pain management concerns. The patient reports a history of spinal issues, including spinal stenosis, lumbar disc degeneration, and lumbar spondylosis, which have been ongoing for several years. She has not undergone any back surgery and denies any specific injury leading to her current condition. The patient received bilateral sacroiliac joint injections with steroids on June 06, which provided complete relief for only two weeks. Previous injections in 2018 at [facility] provided longer-lasting relief. The patient is currently considering alternative pain management options, including a spinal cord stimulator. The patient experiences pain primarily in the lower back and right buttock, with radiation to the right leg. The pain is exacerbated by walking and backward flexion, and she reports weakness more pronounced on the right side. She is currently taking gabapentin, ibuprofen, baclofen, amitriptyline, and Zepbound, with some weight loss noted. Denies any recent cough, cold, infection, fever or any significant changes in medical history since last office visit - Onset: Chronic, with exacerbations over several years - Quality: Sharp and radiating - Location: Lower back, right buttock, and right leg - Exacerbating factors: Walking, backward flexion - Relieving factors: Previous injections provided temporary relief - Interference: Affects walking, daily functioning and activities and sleep - Affect: Pain impacts mood and daily functioning, disrupts sleep and reduces quality of life, causing frustration - Analgesia: Currently using gabapentin, ibuprofen, baclofen, amitriptyline, and Zepbound - Adverse Effects: Nausea noted with Zepbound - Activities of Daily Living: Pain limits walking and causes weakness, particularly on the right side - Aberrant Drug Related Behaviors: No evidence of misuse or overuse of medications Past Procedures: 06/06/25: Bilateral therapeutic sacroiliac joint injections-100% pain relief for 2 weeks PRIOR: The patient is a 64-year-old female presenting with right and left sacroiliac joint pain. She began experiencing a right-sided pain three months ago without any triggering event, shifting from her chronic left sacroiliac joint pain. Described as more acute on the right side, the pain has limited her sitting capacity and interfered with her sleep. The patient has an extensive history of back issues, including arthritis and spinal stenosis identifiable in past MRIs and experiencing persistent thoracic and lumbar discomfort. Notably, the patient's medical record includes vertiginous symptoms linked to the left ear, creating intense dizziness, especially while laying down. She avoids sitting on her right side due to discomfort. Reports potentially smoking-associated risk factor, consuming a daily pack of cigarettes. The patient supports her pain management with ice and Ibuprofen, along with prescribed gabapentin and baclofen for her back condition. - Onset & Timing: Chronic, flared up 3 months ago, with a shift from left to right sacroiliac joint pain after long driving from vacation. - Quality & Character: Pain in the right hip and buttocks, more severe on the right side but also on the left. - Primary Location: Right >Left SI joint area with positive provocative testing. - Radiation: Bilateral buttocks and lateral hips, occasionally to right groin. - Exacerbating Factors: Sitting or sleeping on the right side worsens the pain. Changing positions, prolonged sitting, driving. - Relieving Factors: Ice application provides some relief. - Interference: Impacts sleep and daily functioning. - Affect: Pain impacts patient's sleep and function, has vertigo affecting stability. - Analgesia: Uses ice, Ibuprofen 800 mg, gabapentin, and baclofen (10 mg TID). - Adverse Effects: No specific adverse effects reported. - Activities of Daily Living: Pain affects sleep and daily activities; avoids right-side sitting. - Aberrant Drug Related Behaviors: None reported. PRIOR 07/21/24: Patient presents today for follow up for chronic low back pain with left sided radicular symptoms and discussion of Nevro Lumbar SCS trial. Patient was last seen in our office one year ago by Dr. Bee. Denies any recent trauma, injury or falls. Patient reports low back pain with radiation of pain into left buttock and left lower extremity but not below knee level with associated numbness and tingling. She also has significant left SIJ pain with positive provocative testing and interested to undergo therapeutic injection as initial steps. Patient denies any fever or chills, abdominal groin pain, weakness, foot drop, bladder bowel dysfunction or saddle anesthesia. PRIOR Dr. Bee 07/29/23: Elizabeth is in my office for the follow-up and further management discussion. I explained to her that since she adamantly refused to go for a surgery the only way to treat her pain I can see as spinal cord stimulator and intrathecal drug delivery system pain pump. I am not sure which spinal cord stimulator in her case will be more efficient so I offered her to have a trial with planned switch during the trial for the other machine. I will place [place] [employer] spinal cord stimulator in and then if she is not satisfied with the Scientific stimulation I will switch it to Nevro. If she likes neither pain pump can be tried today. She decided to sleep on it and read the brochures about [place] [employer] SCS Nevro SCS and [employer] I DDD. She will give us a call about her decision. At her initial visit I also considered sacroiliac joint injection on the left to help her pain however this procedure never happened. Next time she is here we need to discuss the reason why she did not come to the sacroiliac joint injection procedure. Prior: on the phone today discussing the results of the MRI. The dictation of the MRI is as below. 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 We discussed the situation at hands. Obviously this is not a new findings. She had in the past. However to help her condition with the neuromodulation I need to have neurosurgical consult which would deny any surgery on her thoracic spine. After that we can offer her Nevro spinal cord stimulator versus intrathecal drug delivery system pain pump trial. I do not think the weakness of bilateral lower extremities she experiences every day will get better from those to procedures however obviously the pain will be much better as a palliative care. Prior: complain on pain in lower back with radiation into the left lower extremity.? She reports that this pain started in 2019 after a walk her hip gave out and she was barely able to complete that walk.? the pain is productive with frequent exacerbations.?? She was subject of MRI which demonstrated significant spinal stenosis with spinal cord compression at T10-T11 area.? Apparently she went for neurosurgical consult in [place] and she was not recommended to have any surgery however she was not got established with continuous follow-up with any neurosurgeon neither in [place] nor locally, I believe she needs to be under observation.? she had multiple sessions of physical therapy chiropractic manipulations massage therapy and 10s unit she reports that the those were not helpful.? She reports that she had some sort of injection performed for her lumbar spine which was working for 1 year alleviating her pain.? I suspect that was steroid injection [facility] Medical History COPD (chronic obstructive pulmonary disease) Tobacco use disorder Depression Obesity Obstructive sleep apnea Pulmonary nodules Vitamin D deficiency DDD (degenerative disc disease) Thoracic spondylosis Review of Systems Const All systems reviewed & are unremarkable except as noted in HPI and below Physical Exam General: Appears afebrile. Moderate distress due to pain. Alert and oriented. Mood and affect appropriate. Follows and participates in conversation appropriately. Respiratory effort is unlabored. No cough. Able to transition from sit to stand unassisted. Ambulates with bilaterally normal heel strike and toe off. General: Yes no CVA tenderness Back/Spine/Pelvis Other: Limited lumbar ROM due to pain. Antalgic gait with limping. Uses cane with ambulation. Mild to moderate midline tenderness to palpation in the mid and lower thoracic and lower lumbar regions. Mild to moderate paraspinal tenderness to palpation in the lumbar spine right>left. Lumbar extension and flexion reproduces moderate to severe pain. Mild right groin pain with I/E hip rotations bilaterally. Mak's, Stinchfield, Pelvic compression, Gaenslen tests positive bilaterally. SLR is positive on the left and equivocal on the right. Lasegue test is positive on the left and equivocal on the right. Valsalva maneuver increases her pain. Back: no CVA tenderness Cervical Spine: cervical ROM normal, cervical muscular tenderness, No Cervical spine tenderness and No step off deformity Thoracic/Lumbar Spine: thoracic and lumbar spine normal to inspection, No Thoracic/lumbar spine scar(s), Lasegue's sign positive bilateral and diffuse, pain with thoraco-lumbar ROM, paraspinal muscle tenderness, thoraco-lumbar ROM limited, No thoracic spinal tenderness, lumbar spinal tenderness (L4-S1) and straight leg raise positive bilateral at 40 degrees Pelvis: buttock tenderness on the left Sacroiliac joints: bilaterally tender to palpation Extrem General: Yes capillary refill normal, Yes no clubbing, cyanosis or edema and Yes no calf tenderness Results Reviewed Results Reviewed: MR lumbar spine wo con 08/14/25 Findings: T12-L1: Central disc extrusion, 0.8 cm AP x 1 cm transverse extending cephalad 1.9 cm with ventral impingement on the cord resulting in atvy-ho-etbsrlvw central canal stenosis and no significant neural foraminal stenosis. L1-2: Grade 1 retrolisthesis of L1 over L2. L2-3: Grade 1 retrolisthesis of L2 over L3. Minimal broad-based disc bulge with minimal central canal stenosis and mild bilateral neural foraminal stenosis. L3-4: Grade 1 retrolisthesis of the L3 over L4. Broad-based disc bulge and facet arthropathy with mild central canal stenosis moderate left and vpfe-wb-kfcgopfd right neural foraminal stenosis with impingement of the exiting left L3 nerve root. L4-5: Broad-based disc bulge and facet arthropathy with impingement of the L5 nerve roots with mild central canal stenosis, moderate right and furw-kb-xaxdvptp left neural foraminal stenosis with impingement of the exiting L4 nerve roots. L5-S1: Grade 1 anterolisthesis of L5 over S1. Broad-based disc bulge and facet arthropathy impinging of the S1 nerve roots with no significant central canal stenosis and moderate to severe left and moderate right neural foraminal stenosis with impingement of the exiting L5 nerve roots. No acute fracture or pathologic bone lesion. Cauda equina and conus medullaris within normal limits. Paraspinous musculature intact. The filum terminale at L1-2. IMPRESSION: 1. L5-S1 grade 1 anterolisthesis with moderate to severe left and moderate right neural foraminal stenosis, impinging on exiting L5 nerve roots. 2. T12-L1 central disc extrusion with ventral cord impingement and whrm-sd-gcbnlsbs central canal stenosis. 3. L4-5 moderate right and yose-cb-rwtbfzvk left neural foraminal stenosis with L4 nerve root impingement bilaterally. 4. L3-4 moderate left and qsjh-nh-uxbfkjoo right neural foraminal stenosis with left L3 nerve root impingement. Assessment & Plan Assessment & Plan (1) Degeneration, intervertebral disc, thoracic: Code(s): M51.34 - Other intervertebral disc degeneration, thoracic region Category: Medical (2) Herniation of thoracolumbar intervertebral disc: Code(s): M51.25 - Other intervertebral disc displacement, thoracolumbar region Category: Medical (3) Disc degeneration, lumbar: Code(s): M51.36 - Other intervertebral disc degeneration, lumbar region Category: Medical (4) Spinal stenosis, thoracic: Code(s): M48.04 - Spinal stenosis, thoracic region Category: Medical (5) Chronic sacroiliac joint pain: Code(s): M53.3 - Sacrococcygeal disorders, not elsewhere classified; G89.29 - Other chronic pain Category: Medical (6) Chronic pain syndrome: Code(s): G89.4 - Chronic pain syndrome Category: Medical (7) Lumbar radiculopathy, chronic: Code(s): M54.16 - Radiculopathy, lumbar region Category: Medical (8) Lumbosacral spondylosis: Code(s): M47.817 - Spondylosis without myelopathy or radiculopathy, lumbosacral region Category: Medical Plan Very good results of bilateral transforaminal L5-S1 epidural steroid injection. Patient is living for [place]. When she will come back in March she will give us a call and schedule appointment with me. Coding Level of Care Code Est Pt Level 3 (03988) Diagnoses Degeneration, intervertebral disc, thoracic M51.34 Herniation of thoracolumbar intervertebral disc M51.25 Disc degeneration, lumbar M51.36 Spinal stenosis, thoracic M48.04 Chronic sacroiliac joint pain M53.3; G89.29 Chronic pain syndrome G89.4 Lumbar radiculopathy, chronic M54.16 Lumbosacral spondylosis M47.817
--- OUTSIDE RECORDS SUMMARY | 2025-11-15 15:30 | XMS_ITS | Encounter Summary ---
Author Organization [facility] Address [address] [place] [address] Care Team Providers Care Quality Assurance Coordinator Name Role Phone Keyona Mills MD Primary Care Provider [phone] Reason for Visit * Reason Onset Date Comments COPD 10/25/2024 Encounter Details Date Type Department Care Team (Late st Contact Info) Description 10/25/2024 Nurse Triage Adult Medicine [facility] [address] [place] [phone] Keyona Mills MD [address] [place] [address] Social History Tobacco Use Types Packs/Day Years [...] exposures) No Protocols used: Cough - Acute Pdctrhgiqu-O-BL * Bill Marshall - 10/25/2024 9:04 AM [...] traveled recently to another state outside of [place], [place], [place], [place], [place], [place], [place]? no o If yes, did you quarantine [...] yes, gather 3rd libertarian insurance information Third Libertarian Information: not applicable PCP: Keyona Mills MD Payor: [employer] / Plan: [employer]AN / Product Type: *No Product type* / documented in this encounter Plan of Treatment Upcoming Encounters Date Type Department Care Team (Late st Contact Info) Description 05/09/2026 11:00 AM EDT Office Visit Adult Medicine [address] [phone] Keyona Mills MD [address] [place] [address] documented as of this encounter Visit Diagnoses Not on filedocumented in this encounter Care Teams Quality Assurance Coordinator Relationship Specialty Start Date End Date Keyona Mills MD [address] [place] [address] PCP - General Internal Medicine 08/10/20 documented as of this encounter
--- OUTSIDE RECORDS SUMMARY | 2025-11-15 15:31 | XMS_ITS | Clinical Summary ---
Author Organization [address] [facility] Address [address] [place] [address] Phone Care Team Providers Care Toolmaker Grade Three Name Role Phone Keyona Mills MD Primary Care Provider [phone] Allergies Active Allergy Reactions Criticality Noted Date [...] Sprays by Nasal route daily. 024 Active albuterol HFA (PROAIR HFA ; PROVENTIL HFA ; VENTOLIN HFA) 90 mcg/actuation inhaler Inhale 2 puffs by mouth every 4 (four) hours if needed for wheezing. 6.7 g 1 025 Active fluticasone-ume clidinium-vilan terol (Trelegy Ellipta) 100-62.5-25 mcg inhalerIndicati ons:Chronic obstructive pulmonary disease, unspecified COPD type ([facility] V24, [facility] V28) Inhale 1 puff (100 [...] ns:Chronic obstructive pulmonary disease with acute exacerbation ([facility] V24, [facility] V28),Obstructiv e sleep apnea,Hypothyro idism, unspecified type,Class [...] by mouth at bedtime. 90 each 025 Active sertraline (ZOLOFT) 100 mg tabletIndicatio ns:Severe obesity due to excess calories with serious comorbidity and body mass index (BMI) 120% of 95th percentile to less than 140% of 95th percentile for age in pediatric p* ([facility] V24, [facility] V28),Prediabete s Take 2 Tablets by mouth daily. 180 each 1 Active gabapentin (NEURONTIN) 300 mg capsule TAKE 1 CAPSULE BY MOUTH THREE TIMES A DAY 270 capsule 1 Active tirzepatide, weight loss, (Zepbound) 15 mg/0.5 mL injection Inject 0.5 mL (15 mg total) under the skin every 7 (seven) days. 2 mL 2025 Active ipratropium-alb uteroL (DUONEB) 0.5-2.5 mg/3 mL nebulizer solution Take 3 mL by nebulization if needed for shortness of breath or wheezing. Prescribed in Pulmonology 024 2024 Discontinued albuterol 2.5 mg /3 mL (0.083 %) nebulizer solutionIndicat ions:Chronic obstructive pulmonary disease, unspecified COPD type ([facility] V24, [facility] V28) Take 3 mL (2.5 mg total) by nebulization every 6 (six) hours if needed for wheezing. 360 mL 11 024 2024 Discontinued tirzepatide, weight loss, (Zepbound) 12.5 mg/0.5 mL injection Inject 0.5 mL (12.5 mg total) under the skin every 7 (seven) days. 2 mL 025 2024 Discontinued(D ose adjustment) Active Problems Problem Noted Date Diagnosed Date [...] program Obstructive sleep apnea 10/12/2018 Overview (09/28/2024): [facility] Home Polysomnogram: Date 10/06/2018; AHI [...] disorder 11/02/2013 COPD (chronic obstructive pulmonary disease) Overview (09/28/2024): emphysema by low DLCO in [...] Encounters Date Type Department Care Team Description 11/08/2025 2:30 PM EST Office Visit Adult Medicine [facility] [address] [place] [address] Keyona Mills MD Chronic obstructive pulmonary disease with acute exacerbation (CMS/HCC V24, CMS/HCC V28) (Primary Dx); Smoking addiction; Hypothyroidism, unspecified type; Obesity (BMI 30.0-34.9); Pulmonary nodules; Colon cancer screening 10/09/2025 8:48 AM EST - 10/09/2025 11:59 PM EST Hospital Encounter [facility] CT Scan [address] [place] [id number] Cigarette smoker; Encounter for screening for lung cancer Discharge Disposition: Home or Self Care 09/20/2025 Telephone Adult Medicine [facility] [address] [place] [address] Keyona Mills MD 08/18/2025 Telephone Lung Screening Program - [place] [address] [facility] [address] [place] [phone] Mary Eastman MA from Last 3 Months Immunizations Immunization Administration Dates Next Due Pneumococcal conjugate 20 va lent (Prevnar 20, PCV 20) 2mo and older 03/27/2023 Td Tetanus diptheria (Tdvax) 7yo and older 05/09 Tdap Tetanus diptheria acell ular pertussis (Boostrix; Adacel) 7yo and older 06/17/2023 Surgical History Surgery Date Site/Laterality Comments TONSILLECTOMY PROCEDURE: HISTORICAL TONSILLECTOMY BUNIONECTOMY PROCEDURE: [place] CORRJ HLX VLGS BNCTY SESMDC W/DOUBLE OSTEOTOMY HYSTERECTOMY PROCEDURE: HISTORICAL HYSTERECTOMY; COMMENT: endometriosis COLONOSCOPY 2004 PROCEDURE: [place] COLONOSCOPY STOMA DX INCLUDING COLLJ SPEC SPX; COMMENT: Up to cecum, well prepared. by Dr. Perez COLONOSCOPY 07/25/08 PROCEDURE: [place] COLONOSCOPY STOMA DX INCLUDING COLLJ SPEC SPX; [...] Date Smoking Tobacco: Every Day Cigarettes 1 49 Started: 1976 Passive Smoke Exposure: Current Smokeless [...] care for your loved ones. For example, early childhood associate or elderly care for an older adult? [...] Sign Reading Time Taken Comments Blood Pressure 120/75 11/08/2025 2:43 PM EST Pulse 97 11/08/2025 2:43 PM EST Temperature 36.1 C (97 F) 11/08/2025 2:43 PM EST Respiratory Rate 15 11/08/2025 2:43 PM EST Oxygen Saturation 96% 11/08/2025 2:43 PM EST Inhaled Oxygen Concentration - - Weight 75.2 kg (165 lb 12.8 oz) 11/08/2025 2:43 PM EST Height 152.4 cm (5') 11/08/2025 2:43 PM EST Body Mass Index 32.38 11/08/2025 2:43 PM EST Plan of Treatment Upcoming Encounters Date Type Department Care Team (Late st Contact Info) Description 05/09/2026 11:00 AM EDT Office Visit Adult Medicine [facility] [address] [place] [phone] Keyona Mills MD [address] [place] [address] Health Maintenance Due Date Last Done Comments Cervical Cancer Screening: Pap Smear 1981 RSV Immunization Adult Patients (1 - Risk 50-74 years 1-dose series) 2010 Zoster Vaccines (1 of 2) 2010 Osteoporosis Screening (Bone Density Screening) 10/25/2022 Colorectal Cancer Screening: Colonoscopy 08/19/2023 08/19/2018 Influenza Vaccine (#1) 2025 Social Influencers of Health Screening 03/30/2026 03/30/2025 Lung Cancer Screening (Low Dose CT) 10/09/2026 10/09/2025, 09/06/2024, 09/07/2023, Additional history exists Falls Risk Assessment 11/08/2026 11/08/2025 Breast Cancer Screening 11/06/2027 11/06/2025, 06/23 Cholesterol Screening (Lipid Panel) 03/28/2030 03/28/2025, 08/22/2024, 08/22/2024 DTaP,Tdap,and Td Vaccines (4 - Td or Tdap) 06/17/2033 06/17/2023, 05/09/2022, 11/16/2001 Hepatitis C Screening Completed 02/16/2014 COVID-19 Vaccine Discontinued 12/24/2021, , 04/12/2021 Pneumococcal Vaccine: 50+ Years Completed 03/27/2023 Depression Screening Completed 11/07/2025 HIB Vaccines Aged Out No longer eligi [...] Procedure Name Priority Date/Time Associated Diagnosis Comments EXTERNAL MAMMOGRAM REPORT 11/06/2025 CT LUNG SCREENING Routine 10/09/2025 8:5 4 AM EST Cigarette smoker Encounter for screening for lung cancer LIPID PANEL WITH REFLEX TO DIRECT LDL Routine 03/28/2025 1:49 PM EDT Vitamin D deficiency Hypothyroidism, unspecified type Chronic obstructive pulmonary disease with acute exacerbation (CMS/HCC V24, CMS/HCC V28) Obesity (BMI 30.0-34.9) Mixed hyperlipidemia COLONOSCOPY Routine 08/19/2018 HEPATITIS C SCREENING Routine 02/16/2014 from Last 3 Months or Most Recently Relevant to Health Maintenance Results * External Mammogram Report (11/06/2025) Anatomical Region Laterality Modality Mammography us Provider [facility] BI PROCEDURES Final Result * CT Lung Screening (10/09/2025 8:54 AM EST) Anatomical Region Laterality Modality Chest Computed Tomogra phy 10/19/2025 11:0 1 AM EST Impressions 10/19/2025 11:10 AM EST No new or enlarging pulmonary nodules. No significant change from the prior study. Lung RADS 2, recommend low-dose screening chest CT in 12 months -------- FINAL REPORT -------- Dictated By: Armida Leone Dictated Date: 10/19/2025 11:01 ET Assigned Physician: Armida Leone Reviewed and Electronically Signed By: Armida Leone Signed Date: 10/19/2025 11:10 ET Workstation ID: [id number] Transcribed By: Self Edit Transcribed Date: 10/19/2025 11:01 ET Narrative 10/19/2025 11:10 AM EST INDICATION: Current smoker with 48.6 pack-year smoking history FINDINGS: Low-dose CT scan of the chest obtained as a lung cancer screening study. Dose reduction technique: ASIR (Adaptive statistical iterative reconstruction) and/or AEC (automated exposure control) Dose: total exam DLP 158 mGY per cm COMPARISON: Compared to multiple prior studies most recent from September 06, 2024 Lung: Nonspecific groundglass attenuation with a mosaic type pattern is similar to the prior study. No focal infiltrates or effusions. Similar 3 mm noncalcified peripheral nodule in the left lung base on series 3 image 145 unchanged dating back to August 2018. No new or enlarging pulmonary nodules. Tiny bilateral solitary calcified granulomas. Lymph nodes: No thoracic lymphadenopathy. Multiple subcentimeter nodes are again noted. 11 mm short axis right precarinal node now measures 9 mm. Mediastinum: Trachea and esophagus are within normal limits. Heart normal in size and shape with trace pericardial effusion, unchanged. Mediastinal vascular structures are unchanged. Aberrant right subclavian artery again noted. Bony structures: Within normal limits for the patient's age. Interval improvement in intrahepatic steatosis. Procedure Note Armida Leone MD - 10/19/2025 INDICATION: Current smoker with 48.6 pack-year smoking history FINDINGS: Low-dose CT scan of the chest obtained as a lung cancerscreening study. Dose reduction technique: ASIR (Adaptive statistical iterativereconstruction) and/or AEC (automated exposure control) Dose: total exam DLP 158 mGY per cm COMPARISON: Compared to multiple prior studies most recent from 2023 Lung: Nonspecific groundglass attenuation with a mosaic type pattern issimilar to the prior study. No focal infiltrates or effusions. Similar 3 mm noncalcified peripheral nodule in the left lung base onseries 3 image 145 unchanged dating back to August 2018. No new or enlarging pulmonary nodules. Tiny bilateral solitary calcifiedgranulomas. Lymph nodes: No thoracic lymphadenopathy. Multiple subcentimeter nodes areagain noted. 11 mm short axis right precarinal node now measures 9 mm. Mediastinum: Trachea and esophagus are within normal limits. Heart normalin size and shape with trace pericardial effusion, unchanged. Mediastinalvascular structures are unchanged. Aberrant right subclavian artery againnoted. Bony structures: Within normal limits for the patient's age. Interval improvement in intrahepatic steatosis. IMPRESSION: No new or enlarging pulmonary nodules. No significant change from theprior study. Lung RADS 2, recommend low-dose screening chest CT in 12 months -------- FINAL REPORT -------- Dictated By: Armida Leone Dictated Date: 10/19/2025 11:01 ET Assigned Physician: Armida Leone Reviewed and Electronically Signed By: Armida Leone Signed Date: 10/19/2025 11:10 ET Workstation ID: [id number] Transcribed By: Self Edit Transcribed Date: 10/19/2025 11:01 ET Sonja Joe MD [facility] CT PROCEDURES Final Result * (ABNORMAL) Lipid panel with reflex to direct LDL (03/28/2025 1:49 PM EDT) Cholesterol 179 0 - 200 mg/dL LAB CHEMISTRY METHOD 03/28/2025 4:[address] [facility] Triglycerides 95 0 - 150 mg/dL LAB CHEMISTRY METHOD 03/28/2025 4:[address] [facility] HDL 57 >=40 mg/dL LAB CHEMISTRY METHOD 03/28/2025 4:[address] [facility] LDL Calculated 103(H) 0 - 100 mg/dL LAB CHEMISTRY METHOD 03/28/2025 4:[address] [facility] VLDL Cholesterol Iglesia 19 mg/dL LAB CHEMISTRY METHOD 03/28/2025 4:[address] [facility] Non HDL Chol. (LDL+VLDL) 122 <145 mg/dL LAB CHEMISTRY METHOD 03/28/2025 4:[address] [facility] Chol/HDL Ratio 3.1 0.0 - 4.4 LAB CHEMISTRY METHOD 03/28/2025 4:[address] [facility] Blood Venous blood specimen / Unknown Venipuncture / Unknown 03/28/2025 1:49 PM EDT 03/28/2025 1:49 PM EDT Jeremy SIMMONS LAB BLOOD ORDERABLES Fin al Result [facility] [address] [place] [address], * Colonoscopy (08/19/2018) Colonoscopy No Interpretation , Abstracted Anatomical Region Laterality Modality Other Historical Provider HEALTH MAINTENANCE Final Result * Hepatitis C Screening (02/16/2014) Pathologist [facility] Hepatitis C Screening Abstracted Historical Provider HEALTH MAINTENANCE Final Result from Last 3 Months or Most Recently Relevant to Health Maintenance Insurance [employer] Care Teams Toolmaker Grade Three Relationship Specialty Start Date End Date Keyona Mills MD [address] [place] [id number] PCP - General Internal Medicine 08/10/20
--- OUTSIDE RECORDS SUMMARY | 2025-11-15 15:31 | XMS_ITS | Patient Health Record ---
Author Organization [facility] Address [address] [place] [address] Care Team Providers Care Radiology Scheduler Name Role Phone Lina PLEITEZ, Keyona Reynoso Primary Care Provider Unav ailable Gregoria Doss Unavailable [phone] Allergies Allergen (clinical drug ingredient) Drug/Non Drug [...] in Limb (729.5) Referring Provider [facility] Referring Provider Last Name Lina [facility] Referred Provider Gregoria Doss Referred Address [address] [facility],[place], [place],[address], Referred Provider Specialty Podiatry Referral Priority Routine Medications Medication SIG (Take, Route, Frequency, Duration) Notes Start Date End Date Status Tylenol Active Symbicort Not-Taking Simvastatin Active Meclizine HCl 25 MG TAKE 1 TABLET BY JESSENIA 3 TIMES A DAY NEEDED FOR DIZZINESS Oral; Duration: 15 Not-Taking Multivitamins Active Calcium Active clonazePAM eFrnando bryant Anoro Ellipta Not-Damian Long Ellipta 100-62.5-25 MCG/ACT 1 puff Inhalation Once a day Active Ciclopirox Olamine 0.77 % 1 application to affected area Externally to feet Twice a day; Duration: 30 days Active Gabapentin 300mg three times a day orally daily Active Cyclobenzaprine Comfort Pac Not-Taking Zoloft Active Gynodiol Not-Taking Amitriptyline HCl Ac tive Acetaminophen-Codeine 300-30 MG 1 tablet as needed Orally every 6 hrs; Duration: as needed 06/27/2014 Not-Taking Lamisil 250 Not-Taki ng Baclofen Active ProAir HFA Active Keflex 500 500 MG 1 capsule Orally cinda ry 12 hrs; Duration: 10 day(s) 06/27/2014 Not-Taking Immunizations Vaccine Route Administration Date Status Comme [...] W/U Status Risk Notes Problem Plantar wart (08995837) Plantar wart (B07.0) Active confirmed Vital Signs Blood pressure diastolic 75 mm Hg 10/24/2025 Height 5ft 1in in 10/24/2025 Blood pressure systolic 118 mm Hg 10/24/2025 Weight 165 lbs 10/24/2025 BMI 31.17 kg/m2 10/24/2025 Procedures Procedure Date Ordered Date Performed Result Body Sit e 64311-STVROKK NAIL, 6 OR MORE 04/25/2025 N/A 42195-Rucd Destruction, 1-14 04/25/2025 N/A 73785-FWGTMGQ NAIL, 6 OR MORE 10/24/2025 N/A 75246-Tylt Destruction, 1-14 10/24/2025 N/A Encounters Encounter Location Date Provider Diagnosis [facility] [address] 04/25/2025 Gregoria Black Onychomycosis B35.1 ; Pain in right toe(s) M79.674 ; Pain in left toe(s) M79.675 ; Right foot pain M79.671 and [facility]07.[facility] [address] 10/24/2025 Gregoria Black Onychomycosis B35.1 ; Pain in right toe(s) M79.674 ; Pain in left toe(s) M79.675 ; Right foot pain M79.671 and Plantar wart B07.0 Assessments Encounter Date Diagnosis (ICD Code) Assessment Notes Treatment Notes Treatment Clinical Notes Section Notes 04/25/2025 Onychomycosis (ICD-10 - B35.1) 10/24/2025 Onychomycosis (ICD-10 - B35.1) 10/24/2025 Pain in right toe(s) (ICD-10 - M79.674) 04/25/2025 Pain in right toe(s) (ICD-10 - M79.674) 04/25/2025 Pain in left toe(s) (ICD-10 - M79.675) 10/24/2025 Pain in left toe(s) (ICD-10 - M79.675) 10/24/2025 Right foot pain (ICD-10 - M79.671) 04/25/2025 Right foot pain (ICD-10 - M79.671) 10/24/2025 Plantar wart (ICD-10 - B07.0) 04/25/2025 Plantar wart (ICD-10 - B07.0) Plan Of Treatment Pending Test Test Name Order Date *Liver Function Test (LFT) 04/29/2012 00346-DFXFVTD NAIL, 6 OR MORE 07/05/2012 56124-VSHVSYC NAIL, 6 OR MORE 12/01/2013 67054-BZIIYBT NAIL, 6 OR MORE 01/26/2012 73135-OYWJWHJ NAIL, 6 OR MORE 04/29/2012 55582-TVPUULF NAIL, 6 OR MORE 06/27/2014 43700-XXFAZKO NAIL, 6 OR MORE 09/06/2015 89517-VWTFOLP NAIL, 6 OR MORE 03/10/2016 62909-FUCWXRL NAIL, 6 OR MORE 09/04/2016 03868-DXEVGZW NAIL, 6 OR MORE 07/28/2017 32302-NHMXZFH NAIL, 6 OR MORE 02/11/2018 42039-JWIJQTO NAIL, 6 OR MORE 08/09/2019 52224-YADXGNL NAIL, 6 OR MORE 03/27/2020 82468-YYFKRKS NAIL, 6 OR MORE 11/22/2018 02802-RFHGUSS NAIL, 6 OR MORE 06/29/2020 25139-FMGJVVJ NAIL, 6 OR MORE 10/17/2020 61684-BHQNJCZ NAIL, 6 OR MORE 09/17/2021 08449-XHZOMZR NAIL, 6 OR MORE 04/22/2023 99784-CBGBSCN NAIL, 6 OR MORE 10/21/2023 32078-SXNWMEK NAIL, 6 OR MORE 09/14/2024 22733-LXQOCRA NAIL, 6 OR MORE 04/25/2025 63069-GCHGFRK NAIL, 6 OR MORE 10/24/2025 33802-Rlwy Destruction, 1-14 10/24/2025 18909-Ebas Destruction, -14 09/14/2024 95687-Lyvb Destruction, -14 04/25/2025 07270-Ndfk Destruction, -14 10/21/2023 83611-Kbot Destruction, -14 04/22/2023 19975-Dyuy Destruction, -14 08/09/2019 68620-Hgjj Destruction, -14 09/17/2021 60357-Fgoc Destruction, -14 10/17/2020 84534-Osdo Destruction, -14 03/27/2020 55840-Mpnd Destruction, -14 06/29/2020 63681-Zfao Destruction, -14 11/22/2018 23034-Vpss Destruction, 11-2902/11/2018 67258-Gdch Destruction, 11-2909/04/2016 79141-Pyoz Destruction, 11-2907/28/2017 66885-Dpgr Destruction, 11-2907/28/2014 42904-Saqy Destruction, 11-2903/10/2016 28170-Flhn Destruction, 11-2909/06/2015 96599-Eayp Destruction, 11-2907/13/2014 42330-Tmzf Destruction, 11-2904/29/2012 17990-Hthn Destruction, 11-2909/11/2011 41534-Vqvn Destruction, 11-2912/11/2011 60252-Vxor Destruction, 11-2901/26/2012 84808-Apuc Destruction, 11-2907/31/2011 77256-Astn Destruction, 11-2910/19/2012 83655-Mvgi Destruction, 11-2912/01/2013 01318-Njcj Destruction, 11-2907/05/2012 59975-Qdfdalvw Plate 07/27/2012 52384-Jdmpdkxf Plate 09/04/2016 47607-Fxzzdklv Plate 08/09/2019 65455-Wdejohva Plate 09/17/2021 22648-Bvdmuimn Plate 09/14/2024 51676-AYB 06/27/2014 79684- Debride <25 sq cm 07/31/2011 10881- Debride <25 sq cm 07/28/2014 97130-QKXOHBS SKIN/TISSUE 07/13/2014 82890- Removal of Foreign Body, Subcut 0 03/10/2016 72092- Biopsy of skin lesion 07/17/2011 87014- Biopsy of Addt'l Lesions 07/17/20 11 Next Appt Details Provider Name:Gregoria Wayne Romario , 04/24/2026 11:00:00 AM, [address] [facility], [place], [address], Insurance Providers Payer Name Payer Address Payer Phone Subscriber Number Group Number Insured Name Patient Relationship to Insured Coverage Start Date Coverage End Date [facility] [address] [place] [phone] [id number] Elizabeth Chu Self - patient is the insured Medical (General) History Medical History History ICD Code transfusions thyroid disorder sinus conditions reflux osteoporosis mumps measles joint implants/screws headaches/migraines fibromyalgia chicken pox COPD Surgical History Surgery Date(Month/Year) foot surgery 1993,1994 hysterectomy 1995
--- OUTSIDE RECORDS SUMMARY | 2025-11-15 15:31 | XMS_ITS | Clinical Summary ---
Author Organization [facility] Prior to 04/15/[address] [place] [address] Care Team Providers Care Laboratory Machinist Name Role Phone Unavailable Primary Care Provider [...]
== END 2025-11-15 14:29 | disposition home or self-care (01) ==
LOC: HO.PMC 14:22
PROVIDERS: PCP Internal Medicine; Visit Provider Anesthesiology
DX: M51.34 Other intervertebral disc degeneration, thoracic region (principal); M51.25 Other intervertebral disc displacement, thoracolumbar region; M51.369 Other intervertebral disc degeneration, lumbar region without mention of lumbar back pain or lower extremity pain; M48.04 Spinal stenosis, thoracic region; M53.3 Sacrococcygeal disorders, not elsewhere classified; G89.29 Other chronic pain; G89.4 Chronic pain syndrome; M54.16 Radiculopathy, lumbar region; M47.817 Spondylosis without myelopathy or radiculopathy, lumbosacral region
CPT/HCPCS: 99213

== ENCOUNTER → 2025-11-15 14:21 | Outpatient (BNVA) | payer OTHER, SELFPAY | PROVIDERS: PCP Internal Medicine; Visit Provider Anesthesiology | DX: M51.34 Other intervertebral disc degeneration, thoracic region (principal); M51.25 Other intervertebral disc displacement, thoracolumbar region; M51.360 Other intervertebral disc degeneration, lumbar region with discogenic back pain only; M48.04 Spinal stenosis, thoracic region; M53.3 Sacrococcygeal disorders, not elsewhere classified; G89.29 Other chronic pain; M54.16 Radiculopathy, lumbar region; M47.817 Spondylosis without myelopathy or radiculopathy, lumbosacral region; F45.42 Pain disorder with related psychological factors | CPT/HCPCS: 99212 ==